=== PATIENT | female | born 1990 | race Two or more races ===

== ENCOUNTER 2020-07-25 13:00 | Outpatient (REF) | payer OTHER, SELFPAY ==
[2020-07-26 04:09] LABS: Syphilis Screen Nonreactive (Nonreactive)
[2020-07-26 04:21] LABS: HBc Num1 0.07 S/CO (0.00-0.79); HIV AB/AG Nonreactive (Nonreactive); HIV Num 1 0.26 S/CO (0.00-0.99); Hepatitis B Core Antibody Nonreactive (Nonreactive); ~HepC Num1 0.08 S/CO (0.00-0.79); ~Hepatitis C Antibody Nonreactive (Nonreactive)
[2020-07-26 09:09] LABS: BV Int Neg Control Negative (Negative); BV Int Pos Control Positive (Positive)
[2020-07-27 18:27] LABS: C. trachomatis RNA TMA NOT DETECTED (NOT DETECTED); N. gonorrhoeae RNA TMA NOT DETECTED (NOT DETECTED)
== END 2020-07-25 13:01 | disposition home or self-care (01) ==
LOC: HO.LAB 13:00
PROVIDERS: PCP Internal Medicine; Visit Provider Advanced Practice Midwife
DX: N76.0 Acute vaginitis (principal); Z20.2 Contact with and (suspected) exposure to infections with a predominantly sexual mode of transmission
CPT/HCPCS: 36415; 86704; 86780; 86803; 87389; 87480; 87491; 87510; 87591; 87660; 99212

== ENCOUNTER 2020-09-25 11:04 | Outpatient (REF) | payer OTHER, SELFPAY ==
[2020-09-25 12:48] LABS: Hematocrit 35.6 % (37-47); Hemoglobin 11.3 g/dl (12.0-16.0); Mean Corpuscular HGB Conc 31.7 g/dl (31.0-35.0); Mean Corpuscular Hemoglobin 28.2 pg (27.0-33.0); Mean Corpuscular Volume 88.8 fL (80-98); Mean Platelet Volume 10.8 fL (9.4-12.3); Platelet Count 167 X10*3/uL (160-400); Red Blood Count 4.01 X10*6/uL (4.20-5.50); Red Cell Distribution Width 12.8 % (11.0-16.0); White Blood Count 5.8 X10*3/uL (4.8-10.8)
[2020-09-25 13:27] LABS: HCG Quantitative < 2 mIU/mL; Thyroid Stimulating Hormone 1.33 uIU/mL (0.32-4.0)
[2020-09-26 13:32] LABS: C. trachomatis RNA TMA NOT DETECTED (NOT DETECTED); N. gonorrhoeae RNA TMA NOT DETECTED (NOT DETECTED)
== END 2020-09-25 11:05 | disposition home or self-care (01) ==
LOC: HO.LAB 11:04
PROVIDERS: PCP Internal Medicine; Visit Provider Obstetrics & Gynecology
DX: N92.0 Excessive and frequent menstruation with regular cycle (principal)
CPT/HCPCS: 36415; 84443; 84702; 85027; 87491; 87591; 99212

== ENCOUNTER 2020-10-05 10:53 | Outpatient (REF) | payer OTHER, SELFPAY ==
--- NOTE | ~2020-10-05 | US_ITS ---
EXAMINATION: US PELVIS COMPLETE CLINICAL INFORMATION: Excessive and frequent menses. COMPARISON: None TECHNIQUE: Transabdominal and transvaginal ultrasound of the pelvis is performed. FINDINGS: The uterus is anteverted and anteflexed measuring 10.1 cm in length, 4.4 cm in AP, and 5.9 cm in transverse dimension. The endometrial thickness is 1.0 cm. The uterus is unremarkable. There are several nabothian cysts seen in the cervix. The right ovary measures 3.0 x 2.3 x 1.9 cm and volume 6.9 mL. It appears unremarkable. The left ovary measures 2.8 x 2.2 x 1.5 cm and volume 4.8 mL. It appears unremarkable. There is no free fluid in cul-de-sac. US/US transvaginal IMPRESSION: Unremarkable uterus and ovaries. Small nabothian cysts in the cervix.
--- NOTE | ~2020-10-05 | US_ITS ---
EXAMINATION: US PELVIS COMPLETE CLINICAL INFORMATION: Excessive and frequent menses. COMPARISON: None TECHNIQUE: Transabdominal and transvaginal ultrasound of the pelvis is performed. FINDINGS: The uterus is anteverted and anteflexed measuring 10.1 cm in length, 4.4 cm in AP, and 5.9 cm in transverse dimension. The endometrial thickness is 1.0 cm. The uterus is unremarkable. There are several nabothian cysts seen in the cervix. The right ovary measures 3.0 x 2.3 x 1.9 cm and volume 6.9 mL. It appears unremarkable. The left ovary measures 2.8 x 2.2 x 1.5 cm and volume 4.8 mL. It appears unremarkable. There is no free fluid in cul-de-sac. US/US pelvic complete IMPRESSION: Unremarkable uterus and ovaries. Small nabothian cysts in the cervix.
== END 2020-10-05 10:54 | disposition home or self-care (01) ==
LOC: HO.US 10:53
PROVIDERS: PCP Internal Medicine; Visit Provider Obstetrics & Gynecology
DX: N92.0 Excessive and frequent menstruation with regular cycle (principal)
CPT/HCPCS: 76830; 76856

== ENCOUNTER → 2020-10-10 11:27 | Outpatient (BNVA) | payer OTHER, SELFPAY | PROVIDERS: PCP Internal Medicine; Visit Provider Obstetrics & Gynecology | DX: N92.1 Excessive and frequent menstruation with irregular cycle (principal) | CPT/HCPCS: Q3014 ==

== ENCOUNTER → 2020-10-24 09:54 | Outpatient (BNVA) | payer OTHER, SELFPAY | PROVIDERS: PCP Internal Medicine; Visit Provider Orthopaedic Surgery | DX: M67.439 Ganglion, unspecified wrist (principal) | CPT/HCPCS: 20612; 99202 ==

== ENCOUNTER 2021-02-07 14:46 | Outpatient (REF) | payer OTHER, SELFPAY ==
[2021-02-07 16:29] LABS: Syphilis Screen Nonreactive (Nonreactive)
[2021-02-08 02:38] LABS: CT PCR NOT DETECTED (Not Detect.); NG PCR NOT DETECTED (Not Detect.)
[2021-02-08 13:03] LABS: BV Int Neg Control Negative (Negative); BV Int Pos Control Positive (Positive)
[2021-02-09 08:27] LABS: HBsAGNum1 0.15 S/CO (0.00-0.99); HIV AB/AG Nonreactive (Nonreactive); Hepatitis B Surface Antigen Negative (Negative); ~HepC Num1 0.11 S/CO (0.00-0.79); ~Hepatitis C Antibody Nonreactive (Nonreactive)
== END 2021-02-07 14:47 | disposition home or self-care (01) ==
LOC: HO.LAB 14:46
PROVIDERS: PCP Internal Medicine; Visit Provider Obstetrics & Gynecology
DX: Z01.419 Encounter for gynecological examination (general) (routine) without abnormal findings (principal); Z01.84 Encounter for antibody response examination; Z11.3 Encounter for screening for infections with a predominantly sexual mode of transmission; Z11.4 Encounter for screening for human immunodeficiency virus [HIV]; Z11.59 Encounter for screening for other viral diseases
CPT/HCPCS: 36415; 86780; 86803; 87340; 87389; 87480; 87491; 87510; 87591; 87660; 88142

== ENCOUNTER 2021-03-20 11:06 | Outpatient (REF) | payer OTHER, SELFPAY ==
[2021-03-21 08:09] LABS: Syphilis Screen Nonreactive (Nonreactive)
[2021-03-21 08:30] LABS: HBsAGNum1 0.17 S/CO (0.00-0.99); HIV AB/AG Nonreactive (Nonreactive); HIV Num 1 0.08 S/CO (0.00-0.99); Hepatitis B Core Antibody Nonreactive (Nonreactive); Hepatitis B Surface Antigen Negative (Negative); ~HepC Num1 0.11 S/CO (0.00-0.79); ~Hepatitis C Antibody Nonreactive (Nonreactive)
[2021-03-21 08:42] LABS: HBS Num1 1.69 mIU/mL (0-7.99); ~Hepatitis B Surface Antibody NONREACTIVE (Nonreactive)
== END 2021-03-20 11:07 | disposition home or self-care (01) ==
LOC: HO.LAB 11:06
PROVIDERS: PCP Internal Medicine; Visit Provider Internal Medicine
DX: Z01.84 Encounter for antibody response examination (principal); Z11.3 Encounter for screening for infections with a predominantly sexual mode of transmission; Z11.4 Encounter for screening for human immunodeficiency virus [HIV]; R94.5 Abnormal results of liver function studies
CPT/HCPCS: 36415; 86704; 86706; 86780; 86803; 87340; 87389

== ENCOUNTER 2021-05-07 13:46 | Outpatient (REF) | payer OTHER, SELFPAY ==
[2021-05-07 15:05] LABS: Hematocrit 37.7 % (37-47); Hemoglobin 11.8 g/dl (12.0-16.0); Mean Corpuscular HGB Conc 31.3 g/dl (31.0-35.0); Mean Corpuscular Hemoglobin 27.3 pg (27.0-33.0); Mean Corpuscular Volume 87.3 fL (80-98); Mean Platelet Volume 10.5 fL (9.4-12.3); Platelet Count 163 X10*3/uL (160-400); Red Blood Count 4.32 X10*6/uL (4.20-5.50); Red Cell Distribution Width 13.4 % (11.0-16.0); White Blood Count 5.5 X10*3/uL (4.8-10.8)
[2021-05-07 16:05] LABS: HCG Quantitative < 2 mIU/mL
[2021-05-07 16:31] LABS: Syphilis Screen Nonreactive (Nonreactive)
[2021-05-08 03:26] LABS: CT PCR NOT DETECTED (Not Detect.); NG PCR NOT DETECTED (Not Detect.)
[2021-05-08 04:29] LABS: HBsAGNum1 0.15 S/CO (0.00-0.99); HIV AB/AG Nonreactive (Nonreactive); Hepatitis B Surface Antigen Negative (Negative); ~HepC Num1 0.07 S/CO (0.00-0.79); ~Hepatitis C Antibody Nonreactive (Nonreactive)
[2021-05-08 11:38] LABS: BV Int Neg Control Negative (Negative); BV Int Pos Control Positive (Positive)
== END 2021-05-07 13:47 | disposition home or self-care (01) ==
LOC: HO.LAB 13:46
PROVIDERS: PCP Internal Medicine; Visit Provider Obstetrics & Gynecology
DX: Z11.3 Encounter for screening for infections with a predominantly sexual mode of transmission (principal); Z11.4 Encounter for screening for human immunodeficiency virus [HIV]; N93.9 Abnormal uterine and vaginal bleeding, unspecified; Z20.2 Contact with and (suspected) exposure to infections with a predominantly sexual mode of transmission
CPT/HCPCS: 36415; 84443; 84702; 85027; 86780; 86803; 87340; 87389; 87480; 87491; 87510; 87591; 87660; 99212

== ENCOUNTER 2021-05-24 11:29 | Outpatient (REF) | payer OTHER, SELFPAY ==
--- NOTE | ~2021-05-24 | US_ITS ---
EXAMINATION: ULTRASOUND OF THE PELVIS CLINICAL INFORMATION: Abnormal uterine and vaginal bleeding. COMPARISON: 10/05/2020. TECHNIQUE: Transabdominal and transvaginal pelvic ultrasound. A transvaginal study was performed in addition to the transabdominal study which did not yield an adequate examination of the uterus and ovaries due to superimposed distended gas-filled loops of bowel. FINDINGS: The uterus is normal in size and appearance, measuring 8.5 x 5 x 6.3 cm longitudinally, anteroposteriorly and transversely. The endometrial stripe thickness is normal, measuring 1 cm in thickness. Fluid noted in the endometrial canal. No focal myometrial mass is seen. The ovaries bilaterally are visualized and appear normal, with the right ovary measuring 3 x 1.5 x 1.4 cm and the left ovary measuring 3.5 x 2 x 3.3 cm. Corpus luteum noted on the left. No adnexal mass or free fluid collection seen. US/US pelvic and transvaginal IMPRESSION: Fluid noted in the endometrial canal. No pelvic mass..
== END 2021-05-24 11:30 | disposition home or self-care (01) ==
LOC: HO.US 11:29
PROVIDERS: PCP Internal Medicine; Visit Provider Obstetrics & Gynecology
DX: N93.9 Abnormal uterine and vaginal bleeding, unspecified (principal)
CPT/HCPCS: 76830; 76856

== ENCOUNTER → 2021-06-07 10:48 | Outpatient (BNVA) | payer OTHER, SELFPAY | PROVIDERS: PCP Internal Medicine; Visit Provider Obstetrics & Gynecology | DX: N93.9 Abnormal uterine and vaginal bleeding, unspecified (principal) | CPT/HCPCS: 99212 ==

== ENCOUNTER → 2021-08-21 09:26 | Outpatient (BNVA) | payer OTHER, SELFPAY | PROVIDERS: PCP Internal Medicine; Visit Provider Orthopaedic Surgery | DX: M67.431 Ganglion, right wrist (principal) | CPT/HCPCS: 99212 ==

== ENCOUNTER 2021-12-19 11:31 | Outpatient (REF) | payer OTHER, SELFPAY ==
[2021-12-20 08:12] LABS: HBS Num1 1.52 mIU/mL (0-7.99); HBc Num1 0.06 S/CO (0.00-0.79); HBsAGNum1 0.15 S/CO (0.00-0.99); HIV AB/AG Nonreactive (Nonreactive); HIV Num 1 0.11 S/CO (0.00-0.99); Hepatitis B Core Antibody Nonreactive (Nonreactive); Hepatitis B Surface Antigen Negative (Negative); ~HepC Num1 0.09 S/CO (0.00-0.79); ~Hepatitis B Surface Antibody NONREACTIVE (Nonreactive); ~Hepatitis C Antibody Nonreactive (Nonreactive)
== END 2021-12-19 11:32 | disposition home or self-care (01) ==
LOC: HO.LAB 11:31
PROVIDERS: PCP Internal Medicine; Visit Provider Internal Medicine
DX: Z11.4 Encounter for screening for human immunodeficiency virus [HIV] (principal); Z11.3 Encounter for screening for infections with a predominantly sexual mode of transmission; R79.89 Other specified abnormal findings of blood chemistry
CPT/HCPCS: 36415; 86704; 86706; 86803; 87340; 87389

== ENCOUNTER 2022-02-12 10:56 | Outpatient (REF) | payer OTHER, SELFPAY ==
[2022-02-12 18:33] LABS: CT PCR NOT DETECTED (Not Detect.); NG PCR NOT DETECTED (Not Detect.)
[2022-02-13 13:04] LABS: BV Int Neg Control Negative (Negative); BV Int Pos Control Positive (Positive)
== END 2022-02-12 10:57 | disposition home or self-care (01) ==
LOC: HO.LAB 10:56
PROVIDERS: Visit Provider Obstetrics & Gynecology
DX: Z11.3 Encounter for screening for infections with a predominantly sexual mode of transmission (principal)
CPT/HCPCS: 87480; 87491; 87510; 87591; 87660

== ENCOUNTER 2022-03-20 09:42 | Outpatient (REF) | payer OTHER, SELFPAY ==
--- NOTE | ~2022-03-20 | US_ITS ---
EXAMINATION: US ABDOMEN COMPLETE CLINICAL INFORMATION: Other specified abnormal findings of blood chemistry. COMPARISON: Ultrasound renals only dated 01/13/2020. CT abdomen and pelvis with contrast dated 08/03/2018. KUB dated 12/06/2016 and 10/20/2013. Ultrasound abdomen complete dated 03/20/2012. TECHNIQUE: Real-time imaging of the abdominal viscera. FINDINGS: PANCREAS: Normal. ABDOMINAL AORTA: The proximal, mid, and distal segments are normal in caliber. INFERIOR VENA CAVA: Visualized portions are normal. LIVER: Normal. The liver is normal in size. The liver contour is normal. Parenchymal echogenicity is normal. No focal hepatic lesion. There is no intrahepatic biliary duct dilatation seen. GALLBLADDER: The gallbladder is physiologically distended. Multiple mobile gallstones are present. No evidence of gallbladder wall thickening or pericholecystic fluid. COMMON BILE DUCT: Normal in caliber measuring 0.26 cm in diameter. RIGHT KIDNEY: Normal. No hydronephrosis. No renal calculi or focal parenchymal lesions. The kidney measures 8.9 cm in maximum dimension. LEFT KIDNEY: There is a lower pole calculus measuring 0.3 cm. No hydronephrosis or focal parenchymal lesions. The kidney measures 9.8 cm in maximum dimension. SPLEEN: Normal. The spleen measures 9.0 cm in maximum dimension. FREE FLUID: None. US/US abdomen complete IMPRESSION: Cholelithiasis without inflammatory changes of the gallbladder. Nonobstructing left lower pole renal calculus. This measures 0.3 cm.
== END 2022-03-20 09:43 | disposition home or self-care (01) ==
LOC: HO.HMGCX 09:42
PROVIDERS: PCP Internal Medicine; Visit Provider Internal Medicine
DX: R10.11 Right upper quadrant pain (principal); R79.89 Other specified abnormal findings of blood chemistry
CPT/HCPCS: 76700

== ENCOUNTER 2022-04-19 09:09 | Outpatient (REF) | payer OTHER, SELFPAY ==
[2022-04-19 09:22] LABS: MANUAL DIFF FLAG NO
[2022-04-19 09:52] LABS: Basophils Percent Auto 0.3 % (0-2); Eosinophils Percent Auto 0.5 % (0-4); Hematocrit 36.9 % (37.0-47.0); Hemoglobin 11.8 g/dl (12.0-16.0); Imm Gran Abs Auto 0.02 X10*3/uL (0.00-0.03); Imm Gran Pct Auto 0.3 % (0.0-0.4); Immature Retic Fraction 9.3 % (3.0-15.9); Lymphocytes Absolute Auto 1.7 X10*3/uL (1.2-4.9); Mean Corpuscular Hemoglobin 28.4 pg (27.0-33.0); Mean Corpuscular Volume 88.9 fL (80.0-98.0); Mean Platelet Volume 10.7 fL (9.4-12.3); Monocytes Absolute Auto 0.5 X10*3/uL (0.1-1.2); Neutrophils Absolute Auto 3.7 x10*3/uL (2.0-8.3); Neutrophils Percent Auto 61.9 % (45-73); Platelet Count 168 X10*3/uL (160-400); Red Blood Count 4.15 X10*6/uL (4.20-5.50); Retic HGB Equivalent 31.5 pg (30.0-35.0); Reticulocyte Percent 1.1 % (0.5-1.8); Reticulocytes Absolute 0.046 X10*6/uL (0.026-0.095); White Blood Count 5.9 X10*3/uL (4.8-10.8)
[2022-04-19 10:50] LABS: HBsAGNum1 0.17 S/CO (0.00-0.99); HIV AB/AG Nonreactive (Nonreactive); HIV Num 1 0.05 S/CO (0.00-0.99); Hepatitis B Surface Antigen Negative (Negative); ~HepC Num1 0.11 S/CO (0.00-0.79); ~Hepatitis C Antibody Nonreactive (Nonreactive)
[2022-04-19 10:55] LABS: Alanine Aminotransferase 36 U/L (0-31); Albumin Level 4.3 g/dL (3.5-5.0); Alkaline Phosphatase 71 U/L (39-117); Anion Gap 12 (12-20); Aspartate Amino Transferase 27 U/L (5-31); Bilirubin Total < 0.2 mg/dL (0.0-1.0); Blood Urea Nitrogen 8 mg/dL (9-16); Calcium 9.1 mg/dL (8.4-10.2); Carbon Dioxide 24 mmol/L (22-29); Chloride 108 mmol/L (96-108); Cholesterol 148 mg/dL; Estimated Glomerular Filt Rate > 60; Glucose Random 81 mg/dL (60-115); HDL Cholesterol 55 mg/dL; Iron 34 mcg/dL (30-160); LDL Cholesterol Calculated 84 mg/dl; Percent Iron Saturation 11 % (15-50); Potassium 4.4 mmol/L (3.3-5.1); Sodium 140 mmol/L (135-145); Total Iron Binding Capacity 296 mcg/dL (228-428); Total Protein 6.9 g/dL (6.5-8.0); Triglycerides 45 mg/dL; Unsaturated Iron Binding 262 ug/dL
[2022-04-19 11:08] LABS: Folate 17.9 ng/mL (> or = 4.0); Vitamin B12 637 pg/mL (200-900)
[2022-04-19 11:13] LABS: Ferritin 69 ng/mL (10-122); Free T4 (Free Thyroxine) 0.84 ng/dL (0.71-1.85); Syphilis Screen Nonreactive (Nonreactive); Thyroid Stimulating Hormone 1.72 uIU/mL (0.32-4.0)
== END 2022-04-19 09:10 | disposition home or self-care (01) ==
LOC: HO.LAB 09:09
PROVIDERS: Obstetrics & Gynecology; PCP Internal Medicine; Visit Provider Internal Medicine
DX: Z11.4 Encounter for screening for human immunodeficiency virus [HIV] (principal); Z20.2 Contact with and (suspected) exposure to infections with a predominantly sexual mode of transmission; E78.00 Pure hypercholesterolemia, unspecified; K21.9 Gastro-esophageal reflux disease without esophagitis
CPT/HCPCS: 36415; 80053; 80061; 82607; 82728; 82746; 83540; 84439; 84443; 85025; 85045; 86780; 86803; 87340; 87389

== ENCOUNTER → 2022-05-10 14:34 | Outpatient (BNVA) | payer OTHER, SELFPAY | PROVIDERS: PCP Internal Medicine; Visit Provider Surgery | DX: R10.13 Epigastric pain (principal); K80.20 Calculus of gallbladder without cholecystitis without obstruction; Z86.19 Personal history of other infectious and parasitic diseases | CPT/HCPCS: 99202 ==

== ENCOUNTER → 2022-05-13 09:16 | Outpatient (BNVA) | payer OTHER, SELFPAY | PROVIDERS: PCP Internal Medicine; Visit Provider Surgery | DX: Z11.0 Encounter for screening for intestinal infectious diseases (principal) | CPT/HCPCS: 99211 ==

== ENCOUNTER 2022-05-13 16:20 | Outpatient (REF) | payer OTHER, SELFPAY ==
[2022-05-14 14:01] LABS: H Pylori Breath Test Negative (Negative)
== END 2022-05-13 16:21 | disposition home or self-care (01) ==
LOC: HO.LNP 16:20
PROVIDERS: Visit Provider Surgery
DX: R10.13 Epigastric pain (principal); K80.20 Calculus of gallbladder without cholecystitis without obstruction
CPT/HCPCS: 83013

== ENCOUNTER → 2022-06-17 13:47 | Outpatient (BNVA) | payer OTHER, SELFPAY | PROVIDERS: PCP Internal Medicine; Referring Provider Internal Medicine; Visit Provider Nurse Practitioner Family | DX: R10.13 Epigastric pain (principal); K80.20 Calculus of gallbladder without cholecystitis without obstruction; K21.9 Gastro-esophageal reflux disease without esophagitis | CPT/HCPCS: 99202 ==

== ENCOUNTER 2022-06-19 09:00 | Outpatient (REF) | payer OTHER, SELFPAY ==
[2022-06-19 09:23] LABS: MANUAL DIFF FLAG NO
[2022-06-19 09:42] LABS: Basophils Percent Auto 0.4 % (0-2); Eosinophils Percent Auto 0.8 % (0-4); Hematocrit 40.4 % (37.0-47.0); Hemoglobin 12.8 g/dl (12.0-16.0); Imm Gran Abs Auto 0.02 X10*3/uL (0.00-0.03); Imm Gran Pct Auto 0.4 % (0.0-0.4); Lymphocytes Absolute Auto 1.9 X10*3/uL (1.2-4.9); Lymphocytes Percent Auto 39.5 % (20-40); Mean Corpuscular HGB Conc 31.7 g/dl (31.0-35.0); Mean Corpuscular Hemoglobin 27.5 pg (27.0-33.0); Mean Corpuscular Volume 86.7 fL (80.0-98.0); Mean Platelet Volume 10.1 fL (9.4-12.3); Monocytes Absolute Auto 0.4 X10*3/uL (0.1-1.2); Monocytes Percent Auto 7.6 % (2-11); Neutrophils Absolute Auto 2.4 x10*3/uL (2.0-8.3); Neutrophils Percent Auto 51.3 % (45-73); Platelet Count 194 X10*3/uL (160-400); Red Blood Count 4.66 X10*6/uL (4.20-5.50); Red Cell Distribution Width 12.4 % (11.0-16.0); Retic HGB Equivalent 33.2 pg (30.0-35.0); Reticulocyte Percent 0.7 % (0.5-1.8); White Blood Count 4.7 X10*3/uL (4.8-10.8)
[2022-06-19 10:34] LABS: Gamma Glutamyl Transpeptidase 54 U/L (7-33)
[2022-06-19 10:35] LABS: Syphilis Screen Nonreactive (Nonreactive)
[2022-06-19 10:37] LABS: Alanine Aminotransferase 13 U/L (0-31); Albumin Level 4.7 g/dL (3.5-5.0); Alkaline Phosphatase 68 U/L (39-117); Anion Gap 11 (12-20); Aspartate Amino Transferase 15 U/L (5-31); Bilirubin Total 0.5 mg/dL (0.0-1.0); Blood Urea Nitrogen 14 mg/dL (9-16); Calcium 9.7 mg/dL (8.4-10.2); Carbon Dioxide 28 mmol/L (22-29); Chloride 102 mmol/L (96-108); Cholesterol 176 mg/dL; Estimated Glomerular Filt Rate > 60; Glucose Random 76 mg/dL (60-115); HDL Cholesterol 55 mg/dL; Iron 83 mcg/dL (30-160); LDL Cholesterol Calculated 105 mg/dl; Lipase 23 U/L (8-78); Percent Iron Saturation 30 % (15-50); Potassium 4.2 mmol/L (3.3-5.1); Sodium 137 mmol/L (135-145); Thyroid Stimulating Hormone 1.68 uIU/mL (0.32-4.0); Total Iron Binding Capacity 278 mcg/dL (228-428); Total Protein 7.5 g/dL (6.5-8.0); Triglycerides 81 mg/dL; Unsaturated Iron Binding 195 ug/dL
[2022-06-19 10:39] LABS: Ferritin 112 ng/mL (10-122); Free T4 (Free Thyroxine) 0.95 ng/dL (0.71-1.85); Vitamin D 25-OH Total 39.6 ng/mL (>30)
[2022-06-19 10:44] LABS: HBS Num1 1.43 mIU/mL (0-7.99); HBc Num1 0.07 S/CO (0.00-0.79); HBsAGNum1 0.26 S/CO (0.00-0.99); HIV AB/AG Nonreactive (Nonreactive); HIV Num 1 0.06 S/CO (0.00-0.99); Hepatitis B Core Antibody Nonreactive (Nonreactive); Hepatitis B Surface Antigen Negative (Negative); ~Hepatitis B Surface Antibody NONREACTIVE (Nonreactive); ~Hepatitis C Antibody Nonreactive (Nonreactive)
[2022-06-19 11:09] LABS: Folate > 20.0 ng/mL (> or = 4.0); Vitamin B12 1621 pg/mL (200-900)
[2022-06-21 12:48] LABS: Transglutaminase Ab IgG <1.0 U/mL; Transglutaminase IgA <1.0 U/mL
== END 2022-06-19 09:01 | disposition home or self-care (01) ==
LOC: HO.LAB 09:00
PROVIDERS: Absent Provider Nurse Practitioner Family; PCP Internal Medicine; Visit Provider Internal Medicine
DX: Z11.4 Encounter for screening for human immunodeficiency virus [HIV] (principal); Z11.3 Encounter for screening for infections with a predominantly sexual mode of transmission; R10.9 Unspecified abdominal pain; R74.8 Abnormal levels of other serum enzymes; E78.00 Pure hypercholesterolemia, unspecified; D64.9 Anemia, unspecified; K80.20 Calculus of gallbladder without cholecystitis without obstruction; R79.89 Other specified abnormal findings of blood chemistry; E55.9 Vitamin D deficiency, unspecified; E46 Unspecified protein-calorie malnutrition
CPT/HCPCS: 36415; 80053; 80061; 82306; 82607; 82728; 82746; 82977; 83540; 83690; 84439; 84443; 85025; 85045; 86364; 86704; 86706; 86780; 86803; 87340; 87389

== ENCOUNTER 2022-06-21 11:02 | Outpatient (REF) | payer OTHER, SELFPAY ==
[2022-06-28 20:28] LABS: Pancreatic Elastase-1 277 mcg/g
== END 2022-06-21 11:03 | disposition home or self-care (01) ==
LOC: HO.LNP 11:02
PROVIDERS: Visit Provider Nurse Practitioner Family
DX: R10.9 Unspecified abdominal pain (principal)
CPT/HCPCS: 82656

== ENCOUNTER → 2022-07-05 07:46 | Outpatient (REF) | payer OTHER, SELFPAY ==
--- NOTE | ~2022-07-05 | NM_ITS ---
EXAMINATION: BILIARY TRACT IMAGING STUDY WITH CCK CLINICAL INFORMATION: GE reflux, calculus of gallbladder without cholecystitis. Epigastric pain.. COMPARISON: No previous biliary scan is available for comparison. Abdominal ultrasound dated 03/20/2022 is available for comparison.. TECHNIQUE: Serial gamma scintillation camera images were obtained over the abdomen for a total observation period of 93 minutes following the intravenous administration of 5.0 mCi Tc-99m Mebrofenin. FINDINGS: There is good concentration of activity in the liver by 5 minutes post injection. Biliary activity is visualized by 8 minutes. The gallbladder is well visualized by 15 minutes. Small bowel is well visualized by 20 minutes. At 60 minutes post radiopharmaceutical injection, a 30-minute infusion of 1.1 micrograms Sincalide was then begun and an additional 40 minutes of images were obtained. There is good emptying of the gallbladder. By the end of the study there is good clearance of activity from the liver and visualization of diffuse small bowel activity. The calculated gallbladder ejection fraction is 81% (normal gallbladder ejection fraction is greater than 35%). NM/NM hepatobiliary w pharm IMPRESSION: Visualization of the gallbladder is evidence of a patent cystic duct and strong evidence against the diagnosis of acute cholecystitis. The common bile duct is patent. Gallbladder emptying and ejection fraction are normal. Liver function appears normal.
== END ==
LOC: HO.NUCMED 07:46
PROVIDERS: PCP Internal Medicine; Visit Provider Nurse Practitioner Family
DX: K21.9 Gastro-esophageal reflux disease without esophagitis (principal)
CPT/HCPCS: 78227; A9537; J2805

== ENCOUNTER → 2022-07-29 09:39 | Outpatient (BNVA) | payer OTHER, SELFPAY | PROVIDERS: PCP Internal Medicine; Visit Provider Nurse Practitioner Family | DX: K80.20 Calculus of gallbladder without cholecystitis without obstruction (principal); K21.9 Gastro-esophageal reflux disease without esophagitis; R10.13 Epigastric pain | CPT/HCPCS: 99212 ==

== ENCOUNTER 2022-08-07 08:49 | Outpatient (REF) | payer OTHER, SELFPAY | END 2022-08-07 08:50 | disposition home or self-care (01) | LOC: HO.LNP 08:49 | PROVIDERS: PCP Internal Medicine; Visit Provider Advanced Practice Midwife | DX: Z20.2 Contact with and (suspected) exposure to infections with a predominantly sexual mode of transmission (principal) | CPT/HCPCS: 99212 ==

== ENCOUNTER 2022-08-07 09:36 | Outpatient (REF) | payer OTHER, SELFPAY ==
[2022-08-07 17:19] LABS: CT PCR NOT DETECTED (Not Detect.); NG PCR NOT DETECTED (Not Detect.)
[2022-08-08 13:46] LABS: BV Int Neg Control Negative (Negative); BV Int Pos Control Positive (Positive)
== END 2022-08-07 09:37 | disposition home or self-care (01) ==
LOC: HO.LAB 09:36
PROVIDERS: Visit Provider Advanced Practice Midwife
DX: Z20.2 Contact with and (suspected) exposure to infections with a predominantly sexual mode of transmission (principal)
CPT/HCPCS: 0353U; 87480; 87510; 87660

== ENCOUNTER → 2022-10-28 09:47 | Outpatient (BNVA) | payer OTHER, SELFPAY | PROVIDERS: PCP Internal Medicine; Visit Provider Nurse Practitioner Family | DX: K21.9 Gastro-esophageal reflux disease without esophagitis (principal); K80.20 Calculus of gallbladder without cholecystitis without obstruction | CPT/HCPCS: 99212 ==

== ENCOUNTER 2022-11-06 09:43 | Day surgery (SDC) | payer OTHER, SELFPAY ==
--- NOTE | 2022-11-05 14:22 | P.CONAN_ITS ---
Documented by User: Eileen Murphy NP 11/05/22 14:23 HPI - Anesthesia Eval Consult details Narrative: 32yo F for Upper Endoscopy PMFSH Active Problems Active Problems: All Active Problems (Updated 10/28/22 @ 13:17 by Jannet Drake, [facility]) History of Helicobacter pylori infection (Acute) Menorrhagia (Acute) Anemia (Acute) Left renal stone (Acute) Cholelithiases (Acute) Generalized anxiety disorder (Acute) Annual physical exam (Acute) Screening for STD (sexually transmitted disease) (Acute) Allergic rhinitis (Acute) Dorsal wrist ganglion (Acute) Ganglion cyst of tendon sheath of right hand (Acute) Menorrhagia (Acute) Potential exposure to STD (Acute) Low back pain (Acute) Vitamin B12 deficiency (Acute) GERD (gastroesophageal reflux disease) (Acute) Past Medical History Medical History Abnormal uterine bleeding (AUB) Acute vaginitis Asthma Cholelithiasis ZULEMA II (cervical intraepithelial neoplasia II) Dysfunctional uterine bleeding Dysplasia of cervix, low grade (ZULEMA 1) Epigastric abdominal pain GERD (gastroesophageal reflux disease) Iron deficiency anemia Left renal stone RUQ abdominal pain Toe fracture, left Ulnar neuropathy Vitamin B12 deficiency Vitamin D deficiency Well woman exam Family History Family History Father CVD (cardiovascular disease) Myocardial infarction Mother Hodgkin lymphoma Colon cancer Lung cancer Brother Leukemia Colon cancer Maternal Grandmother Diabetes Surgical History Surgical History H/O LEEP History of esophagogastroduodenoscopy (EGD) History of tonsillectomy History of tubal ligation History of wisdom tooth extraction Social History Social History Housing: Apartment Alcohol intake: current Alcohol intake frequency: holidays/special occasions only Patient Tobacco Use Status: Never used Tobacco e-Cigarette/Vaping Use: Never Used Second Hand Smoke Exposure: No service: No Current occupational status: disabled Gender identity: Female Cognitive needs: No Hearing needs: No Vision needs: Yes Meds Allergies Allergy/AdvReac Type Severity Reaction Status Date / Time pomegranate [POMEGRANATE] Allergy Mild RASH Verified 11/18/22 09:28 Seasonal Allergies Allergy Unknown Verified 11/18/22 09:28 Home Medications Medication Instructions Recorded Confirmed Last Taken Type multivitamin 1 tab PO DAILY 07/06/20 05/10/22 Unknown History omega-3 fatty acids 1,000 mg 1,000 mg PO DAILY 07/06/20 05/10/22 Unknown History capsule (Fish Oil Concentrate) biotin 1 mg capsule 1 mg PO DAILY 10/03/20 05/10/22 Unknown History tranexamic acid 650 mg tablet 1,300 mg PO TID 07/29/22 Unknown History (Lysteda) Exam Exam Date and Time: November 05, 2022 1422 Pertinent Lab Results Pertinent Lab Results: Laboratory Tests 06/19/22 06/19/22 09:21 09:21 WBC 4.7 L Hgb 12.8 Hct 40.4 Plt Count 194 Sodium 137 Potassium 4.2 Chloride 102 Carbon Dioxide 28 BUN 14 Creatinine 0.82 Assessment and Plan Assessment Anesthesia Assessment: Chart Reviewed Documented by User: Giovani Sánchez MD 11/21/22 16:58 HPI - Anesthesia Eval Consult details Narrative: 32yo F for Upper Endoscopy h/o back pain with radtion to b/l LE PMFSH Past Medical History Medical History Abnormal uterine bleeding (AUB) Acute vaginitis Asthma Cholelithiasis ZULEMA II (cervical intraepithelial neoplasia II) Dysfunctional uterine bleeding Dysplasia of cervix, low grade (ZULEMA 1) Epigastric abdominal pain GERD (gastroesophageal reflux disease) Iron deficiency anemia Left renal stone RUQ abdominal pain Toe fracture, left Ulnar neuropathy Vitamin B12 deficiency Vitamin D deficiency Well woman exam Functional capacity: independent ambulation Family History Family History Father CVD (cardiovascular disease) Myocardial infarction Mother Hodgkin lymphoma Colon cancer Lung cancer Brother Leukemia Colon cancer Maternal Grandmother Diabetes Family history of problems with anesthesia: No Surgical History Surgical History H/O LEEP History of esophagogastroduodenoscopy (EGD) History of tonsillectomy History of tubal ligation History of wisdom tooth extraction History of Problems with Anesthesia: No Social History Social History Housing: Apartment Alcohol intake: current Alcohol intake frequency: holidays/special occasions only Patient Tobacco Use Status: Never used Tobacco e-Cigarette/Vaping Use: Never Used Second Hand Smoke Exposure: No service: No Current occupational status: disabled Gender identity: Female Cognitive needs: No Hearing needs: No Vision needs: Yes Meds Allergies Allergy/AdvReac Type Severity Reaction Status Date / Time pomegranate [POMEGRANATE] Allergy Mild RASH Verified 11/18/22 09:28 Seasonal Allergies Allergy Unknown Verified 11/18/22 09:28 Home Medications Medication Instructions Recorded Confirmed Last Taken Type multivitamin 1 tab PO DAILY 07/06/20 05/10/22 Unknown History omega-3 fatty acids 1,000 mg 1,000 mg PO DAILY 07/06/20 05/10/22 Unknown History capsule (Fish Oil Concentrate) biotin 1 mg capsule 1 mg PO DAILY 10/03/20 05/10/22 Unknown History tranexamic acid 650 mg tablet 1,300 mg PO TID 07/29/22 Unknown History (Lysteda) Exam Airway Mallampati Class: III Neck ROM: Full Loose/Missing/Broken Teeth: Yes (fillings ) Assessment and Plan Assessment Anesthesia Assessment: Anesthesia Plan Discussed Final Anesthetic Review Family History of Problems with Anesthesia: No History of Problems with Anesthesia: No NPO: Yes ASA Class: II Final Preanesthetic Review: Meds/Allgs Chart Reviewed, Consent Obtained/Reviewed and Anes Risks/Benef Reviewed Patient Risk: Intermediate Procedure Risk: Intermediate Anesthetic Plan Anesthetic Plan: MAC: and Agree w/ Assess. and Plan Disposition: Standard PACU
[2022-11-06 09:51] VITALS: BMI 19.5
[2022-11-06 10:13] VITALS: BP 106/59; PULSE 83; RESP 16; TEMP 37.1; O2SAT 99
[2022-11-06] MEDS: Lactated Ringers 1,000 ML 100 ML IVCONT (10:22)
--- NOTE | 2022-11-06 10:35 | MHC.SHP ---
Pre-Procedural Eval Section A Date of Service: 11/06/22 Section B Chief Complaint: epigastric pain Relevant Family History (Specify if Yes): No Relevant Social History: None Present Medications: see Short Stay Collaborative assessment Medical History: Significant History (Abnormal uterine bleeding (AUB) Acute vaginitis Asthma Cholelithiasis ZULEMA II (cervical intraepithelial neoplasia II) Dysfunctional uterine bleeding Dysplasia of cervix, low grade (ZULEMA 1) Epigastric abdominal pain GERD (gastroesophageal reflux disease) Iron deficiency anemia Left renal stone RUQ abdo) History of Previous Operations: Relevant previous surgery/procedure and date(s) (H/O LEEP History of tonsillectomy History of tubal ligation History of wisdom tooth extraction) Allergies: Allergies Allergy/AdvReac Type Severity Reaction Status Date / Time pomegranate [POMEGRANATE] Allergy Mild RASH Verified 10/28/22 09:53 Seasonal Allergies Allergy Unknown Verified 11/05/22 13:36 Review of Systems Sugical H&P ROS: Negative: Constitution, Cardiovascular, Respiratory, Neurological, Psychiatric, Hem-Onc, Allergic/Immunologic, Gastrointestinal, Genitourinary, Musculoskeletal, Integumentary, Endocrine and Eyes/Ears/Nose/Throat Exam Surgical H&P Exam: Normal: HEENT, Normal: Heart, Normal: Lungs, Normal: Extremities, Normal: Abdomen, Normal: Skin and Normal: Neurological Plan Diagnosis/Plan: Unchanged I have reviewed the history and physical and performed a pertinent physical examination on my patient. No changes have occurred unless specified. Time Spent With Patient Time: Total time managing care of this patient today ____ minutes.
--- NOTE | 2022-11-06 10:36 | W.PM.OPN ---
Operative Note Operative Note Date of Service: 11/06/22 Narrative: Procedure Description: EGD Indication: epigastric pain Anesthesia: MAC FLEXIBLE TRANSORAL UPPER GASTROINTESTINAL ENDOSCOPY UPPER ENDOSCOPY Consent: Indications for the procedure and potential complications of bleeding, perforation, reaction to medications and missed diagnosis were discussed with the patient and informed consent was obtained. Instrument: Olympus GIF H 190 J mid size upper endoscope Monitoring: Vital signs and clinical assessment, continuous EKG monitoring, Pulse oximetry, Carbon Dioxide monitoring and blood pressure monitoring were done throughout the procedure. Procedure: The patient was placed in the left lateral decubitis position and pre-procedure medications were administered and a bite block was placed. The endoscope was inserted into the mouth and advanced under direct vision to the third part of duodenum. A careful inspection was made as the upper endoscope was withdrawn including a retroflexed examination of the proximal stomach; Findings and interventions are described below. Findings: Larynx:normal Esophagus: GE junction at 41 cm, diaphragm hiatus at 41 cm, mild esophagitis bx taken from GEJ and distal esophagus Stomach: Patchy gastric erythema. Few fundic gland polyps noted measuring 10-12 mm, these were removed with cold snare for analysis Biopsies were obtained. Grade 2 flap valve on retroflexed examination of the cardia. There appeared to be normal gastric movement Duodenum: Normal bulb and descending duodenum, bx taken Intervention: Biopsies as noted above, cold snare polypectomy Impression/Findings: fundic gland polyps mild esophagitis PLAN: await bx if neg biopsies, sx maybe coming from symptomatic cholelithiasis and may benefit from GB removal
[2022-11-06 11:15] VITALS: PULSE 77; RESP 20; TEMP 36.5; O2SAT 97
[2022-11-06 11:30] VITALS: PULSE 80; RESP 16; TEMP 36.5; O2SAT 99
[2022-11-06 11:45] VITALS: BP 104/63; PULSE 80; RESP 16; TEMP 36.5; O2SAT 99
== END 2022-11-06 12:39 | disposition home or self-care (01) ==
PROVIDERS: PCP Internal Medicine; Visit Provider Internal Medicine Gastroenterology
PROC: 0DJ08ZZ Inspection of Upper Intestinal Tract, Via Natural or Artificial Opening Endoscopic (ICD-10-PCS; CPT 43235; principal; 2022-11-06 11:10)
DX: J45.909 Unspecified asthma, uncomplicated (principal); K21.9 Gastro-esophageal reflux disease without esophagitis; R10.13 Epigastric pain; K31.7 Polyp of stomach and duodenum; K20.80 Other esophagitis without bleeding; K44.9 Diaphragmatic hernia without obstruction or gangrene; K80.20 Calculus of gallbladder without cholecystitis without obstruction; E55.9 Vitamin D deficiency, unspecified; Z87.442 Personal history of urinary calculi; Z79.899 Other long term (current) drug therapy
CPT/HCPCS: 43251; 43239; 88305; 88342; J3010

== ENCOUNTER → 2022-11-18 09:08 | Outpatient (BNVA) | payer OTHER, SELFPAY | PROVIDERS: PCP Internal Medicine; Visit Provider Nurse Practitioner Family | DX: K80.20 Calculus of gallbladder without cholecystitis without obstruction (principal); K21.9 Gastro-esophageal reflux disease without esophagitis | CPT/HCPCS: 99212 ==

== ENCOUNTER 2023-02-17 10:03 | Outpatient (REF) | payer OTHER, SELFPAY ==
[2023-02-18 05:58] LABS: CT PCR NOT DETECTED (Not Detect.); NG PCR NOT DETECTED (Not Detect.)
[2023-02-18 14:16] LABS: BV Int Neg Control Negative (Negative); BV Int Pos Control Positive (Positive)
== END 2023-02-17 10:04 | disposition home or self-care (01) ==
LOC: HO.LNP 10:03
PROVIDERS: PCP Internal Medicine; Visit Provider Obstetrics & Gynecology
DX: Z01.419 Encounter for gynecological examination (general) (routine) without abnormal findings (principal); Z20.2 Contact with and (suspected) exposure to infections with a predominantly sexual mode of transmission
CPT/HCPCS: 0353U; 87480; 87510; 87660

== ENCOUNTER 2023-02-17 10:03 | Outpatient (AMB) | payer OTHER, SELFPAY ==
--- NOTE | 2023-02-17 10:08 | A.OFFVIS_ITS ---
Intake Vital Signs 02/17/23 10:09 Height 5 ft 6 in Weight 109 lb BMI 17.6 BP 98/62 Intake Visit Reasons: Annual Intake Note: no concerns Wet End Tester Required: No Information Interpreted: non-clinical & clinical Central Sterile Supply Technician: Central Sterile Supply Technician Present (Puja MARTINEZ) Accompanied by: Self / Same As Patient Allergies pomegranate [POMEGRANATE] Allergy (Mild, Verified 02/17/23 10:13) RASH Seasonal Allergies Allergy (Verified 02/17/23 10:13) Unknown Is last menstrual period known: Yes Last menstrual period: 02/13/23 HPI HPI Comments History of Present Illness Details Presenting for annual exam. No complaints. The patient is interested in STD screen Last Pap was negative in 02/07 [facility] Medical History (Updated 02/17/23 @ 10:19 by Jony Mazariegos MD) Abnormal uterine bleeding (AUB) Acute vaginitis Asthma Cholelithiasis ZULEMA II (cervical intraepithelial neoplasia II) Dysfunctional uterine bleeding Dysplasia of cervix, low grade (ZULEMA 1) Epigastric abdominal pain GERD (gastroesophageal reflux disease) Iron deficiency anemia Left renal stone RUQ abdominal pain Toe fracture, left Ulnar neuropathy Vitamin B12 deficiency Vitamin D deficiency Well woman exam Surgical History H/O LEEP History of esophagogastroduodenoscopy (EGD) History of tonsillectomy History of tubal ligation History of wisdom tooth extraction Family History Father CVD (cardiovascular disease) Myocardial infarction Mother Hodgkin lymphoma Colon cancer Lung cancer Brother Leukemia Colon cancer Maternal Grandmother Diabetes Social History Housing: Apartment Alcohol intake: current Alcohol intake frequency: holidays/special occasions only Patient Tobacco Use Status: Never used Tobacco e-Cigarette/Vaping Use: Never Used Second Hand Smoke Exposure: No service: No Current occupational status: disabled Gender identity: Female Cognitive needs: No Hearing needs: No Vision needs: Yes Female Reproductive History Menstrual Age of Menarche: 13 Date of last menstrual period: 02/13/23 control method: permanent sterilization Total pregnancies: 2 Full term: 2 Number of Living Children: 2 Date of last pap smear: 02/08/21 Review of Systems Const All systems reviewed & are unremarkable except as noted in HPI and below Card Reports as per HPI Resp Reports as per HPI GI Reports as per HPI and Reports no additional complaints Reports as per HPI Physical Exam Vital Signs: Last Vital Signs BP 98/62 02/17/23 10:09 BMI result Body Mass Index 17.6 Const General: cooperative, healthy appearing and comfortable Chest Chest palpation & inspection: normal inspection of the chest and normal palpation of entire chest wall Breast/axilla inspection: normal inspection of the breasts and normal inspection of the axillae Breast/axilla palpation: normal palpation of the breasts, normal palpation of the axillae and no axillary lymphadenopathy Resp Effort & Inspection: normal respiratory effort Auscultation: clear to auscultation bilaterally Percussion: percussion normal Cardio Palpation: normal PMI Rate: regular rate Rhythm: regular rhythm Heart sounds: no murmurs and no rubs Peripheral pulses: Peripheral pulses 2+ throughout GI Inspection: Yes normal to inspection Palpation (GI): Soft to palpation, nontender, no guarding, not rigid and No hepatosplenomegaly present Percussion: Yes normal to percussion Auscultation: normal bowel sounds Rectal Exam - Female: deferred General: Yes bladder normal to palpation External Female Exam: No lesion Speculum Exam - Vagina: normal appearance of the vagina, normal palpation, normal vaginal discharge and not erythematous Speculum Exam - Cervix: normal appearance of the cervix and normal palpation Bimanual exam- vagina & uterus: normal bimanual exam, normal palpation, uterine size normal, bladder normal to palpation, consistency normal and normal palpation Bimanual Exam- Adnexa, other: normal adnexae, no masses and no tenderness Assessment & Plan Assessment & Plan (1) Well woman exam: Code(s): Z01.419 - Encounter for gynecological examination (general) (routine) without abnormal findings Plan: Cotesting not indicated this year. Counseled the patient about the recommended dietary allowance of 1000 mg of Calcium & 600 IU of vitamin D. The patient was instructed to perform monthly self-breast exams and to schedule an annual exam in a year; All questions answered and the patient verbalized understanding. Instructed the patient to schedule annual exam in a year (2) Potential exposure to STD: Code(s): Z20.2 - Contact with and (suspected) exposure to infections with a predominantly sexual mode of transmission Plan: STD screening tests done includes: BV panel for trichomonas, GC/CT will send patient for serology std screening for HIV, RPR, Hep b s Ag, HepC Ab. Instructions given the patient to schedule a follow-up appointment for repeat serology screen in 6 months for possible false negatives. Orders: Orders Hepatitis B Surface Antigen Today Z20.2 - Contact with and (suspected) exposure to infections with a predominantly sexual mode of transmission Hepatitis C Antibody Today Z20.2 - Contact with and (suspected) exposure to infections with a predominantly sexual mode of transmission HIV Ab/Ag Today Z20.2 - Contact with and (suspected) exposure to infections with a predominantly sexual mode of transmission Syphilis Screen Today Z20.2 - Contact with and (suspected) exposure to infections with a predominantly sexual mode of transmission Coding Level of Care Code Est Pt Prev Care [id number]([id number]) Diagnoses Well woman exam Z01.419 Potential exposure to STD Z20.2
[2023-02-17 10:09] VITALS: BP 98/62; BMI 17.6
== END 2023-02-17 10:27 | disposition home or self-care (01) ==
LOC: HO.HWS 10:03
PROVIDERS: PCP Internal Medicine; Visit Provider Obstetrics & Gynecology
DX: Z01.419 Encounter for gynecological examination (general) (routine) without abnormal findings (principal); Z20.2 Contact with and (suspected) exposure to infections with a predominantly sexual mode of transmission
CPT/HCPCS: 99395

== ENCOUNTER 2023-02-27 11:43 | Outpatient (REF) | payer OTHER, SELFPAY ==
[2023-02-28 03:05] LABS: Syphilis Screen Nonreactive (Nonreactive)
[2023-02-28 03:12] LABS: HBsAGNum1 0.34 S/CO (0.00-0.99); HIV AB/AG Nonreactive (Nonreactive); HIV Num 1 0.05 S/CO (0.00-0.99); Hepatitis B Surface Antigen Negative (Negative); ~HepC Num1 0.07 S/CO (0.00-0.79); ~Hepatitis C Antibody Nonreactive (Nonreactive)
== END 2023-02-27 11:44 | disposition home or self-care (01) ==
LOC: HO.LAB 11:43
PROVIDERS: PCP Internal Medicine; Visit Provider Obstetrics & Gynecology
DX: Z11.4 Encounter for screening for human immunodeficiency virus [HIV] (principal); Z20.2 Contact with and (suspected) exposure to infections with a predominantly sexual mode of transmission
CPT/HCPCS: 36415; 86780; 86803; 87340; 87389

== ENCOUNTER 2023-02-27 12:24 | Outpatient (AMB) | payer OTHER, SELFPAY ==
[2023-02-27 12:30] VITALS: BP 110/52; PULSE 112; O2SAT 98; BMI 17.8
--- NOTE | 2023-02-27 12:30 | A.OFFPC_ITS ---
Vital Signs 02/27/23 12:30 Height 5 ft 6 in Weight 110 lb BMI 17.8 BP 110/52 L Blood Pressure Location Lt brachial Position Sitting Pulse 112 H Pulse Source Pulse Oximeter Pulse Oximetry (%) 98 Oxygen Delivery Method Room Air Intake Visit Reasons: Annual Exam Allergies pomegranate [POMEGRANATE] Allergy (Mild, Verified 02/27/23 12:31) RASH Seasonal Allergies Allergy (Verified 02/27/23 12:31) Unknown Medication List - Last Reconciled 02/27/23 by Viridiana Garcia MD ascorbic acid (vitamin C) 500 mg PO .QD 90 days biotin 1 mg PO DAILY calcium carbonate 500 mg PO DAILY famotidine 20 mg PO BEDTIME ferrous sulfate (Feosol) 325 mg PO DAILY 90 days fexofenadine (Elyssa Allergy) 180 mg PO DAILY folic acid 1 mg PO DAILY multivitamin 1 tab PO DAILY omega-3 fatty acids (Fish Oil Concentrate) 1,000 mg PO DAILY omeprazole 20 mg PO DAILY tranexamic acid (Lysteda) 1,300 mg (2 x 650 mg) PO TID Tobacco use date assessed: 10/24/22 Dental Screening Dental Screen Date: 02/27/23 Did you have a dental visit in the last 12 months?: Yes Did you have a dental problem in the last 6 months where you did not have access to dental care?: No Was dental information given to patient?: Patient has dentist HPI Annual Exam HPI Details 32-year-old female with a history of left renal calculi cholelithiasis generalized anxiety disorder and GERD last seen in October 2022. Patient is here for follow-up patient had an EGD done showing mild esophagitis but no H pylori. Discussed also on cholelithiasis and will continue to monitor for now but low- fat diet is important [facility] Medical History (Updated 02/27/23 @ 13:07 by Viridiana Garcia MD) Abnormal uterine bleeding (AUB) Acute vaginitis Asthma Cholelithiasis ZULEMA II (cervical intraepithelial neoplasia II) Dysfunctional uterine bleeding Dysplasia of cervix, low grade (ZULEMA 1) Epigastric abdominal pain GERD (gastroesophageal reflux disease) Iron deficiency anemia Left renal stone RUQ abdominal pain Toe fracture, left Ulnar neuropathy Vitamin B12 deficiency Vitamin D deficiency Well woman exam Surgical History H/O LEEP History of esophagogastroduodenoscopy (EGD) History of tonsillectomy History of tubal ligation History of wisdom tooth extraction Family History Father CVD (cardiovascular disease) Myocardial infarction Mother Hodgkin lymphoma Colon cancer Lung cancer Brother Leukemia Colon cancer Maternal Grandmother Diabetes Social History (Updated 02/27/23 @ 13:08 by Viridiana Garcia MD) Housing: Apartment Alcohol intake: current Alcohol intake frequency: holidays/special occasions only Patient Tobacco Use Status: Never used Tobacco e-Cigarette/Vaping Use: Never Used Second Hand Smoke Exposure: No service: No Current occupational status: disabled Gender identity: Female Cognitive needs: No Hearing needs: No Vision needs: Yes Female Reproductive History Menstrual Age of Menarche: 13 Questionnaire PHQ-9 Over the last 2 weeks, how often have you been bothered by any of the following problems? 1. Little interest or pleasure in doing things: not at all 2. Feeling down, depressed, or hopeless: not at all 3. Trouble falling or staying asleep, or sleeping too much: not at all 4. Feeling tired or having little energy: not at all 5. Poor appetite or overeating: not at all 6. Feeling bad about yourself - or that you are a failure or have let yourself or your family down: not at all 7. Trouble concentrating on things, such as reading the newspaper or watching television: not at all 8. Moving or speaking so slowly that other people could have noticed. Or the opposite - being so fidgety or restless that you have been moving around a lot more than usual: not at all 9. Thoughts that you would be better off or of hurting yourself in some way: not at all Total score: 0 Depression Screening Interpretation: Negative Source: Developed by Drs. Sudeep Mckeon, Aura Bradley, Jatin Quiles and colleagues, with an educational binta from [employer]. Thrive Questionnaire Date Thrive assessed: 10/24/22 AUDIT C Alcohol Use Questionnaire (AUDIT-C) 1. How often do you have a drink containing alcohol?: 2-3 times a week 2. How many drinks containing alcohol do you have on a typical day when you are drinking?: 1 or 2 3. How often do you have six or more drinks on one occasion?: Never Total Score: 3 ERIK-7 AMB Questionnaire ERIK-7 Date ERIK - 7 assessed: 10/24/22 Source: Developed by Drs. Sudeep Mckeon, Aura Bradley, Jatin Quiles and colleagues, with an educational binta from [employer]. Review of Systems Const Denies poor appetite and Denies weakness Eyes Denies no additional complaints ENT Reports Normal hearing present, Denies dizziness, Denies nasal congestion, Denies tinnitus and Denies sore throat Card Denies chest pain, Denies syncope, Denies rapid heart rate and Denies dyspnea Resp Denies cough and Denies dyspnea GI Denies change in stool character, Reports constipation, Denies diarrhea, Denies nausea and Denies vomiting Denies urinary frequency, Denies difficulty voiding and Denies dysuria Neuro Reports Normal hearing present, Denies confusion, Denies dizziness, Denies syncope and Denies weakness Psych Denies confusion Physical exam (Primary Care) Vital Signs: Last Vital Signs Pulse 112 H 02/27/23 12:30 BP 110/52 L 02/27/23 12:30 Pulse Ox 98 02/27/23 12:30 Oxygen Delivery Method Room Air 02/27/23 12:30 BMI result Body Mass Index 17.8 Tobacco/Smoking Status: Tobacco use Status Tobacco use date assessed 10/24/22 02/27/23 12:33 Patient Tobacco Use Status Never used Tobacco 02/27/23 12:33 e-Cigarette/Vaping Use Never Used 02/27/23 12:33 PHQ-9: PHQ-9 Score PHQ-9: Total score 0 02/27/23 12:41 Depression Screening Interpretation: Negative Thrive Assessment: Date of Thrive Assessment Date Thrive assessed 10/24/22 02/27/23 12:33 Const General: No confusion Orientation/consciousness: No confusion HENMT Head: Yes normocephalic Ears: external ears normal and TM's normal bilaterally Face and sinus: Yes normal facial exam Mouth: moist mucous membranes Throat: Yes tonsils normal Eyes Conjunctivae: conjunctivae normal Pupils: Equal, round and reactive pupils present and Pupil accommodation reflex normal Direct Ophthalmoscopy: normal light reflex Neck Neck: No lymphadenopathy Thyroid: Thyroid normal Chest Chest palpation & inspection: normal inspection of the chest Resp Effort & Inspection: normal respiratory effort and no audible wheezes Auscultation: clear to auscultation bilaterally, no crackles, no wheezes and lung sounds not diminished Cardio Rate: regular rate Rhythm: regular rhythm Peripheral pulses: radial pulses present and dorsalis pedis present GI Palpation (GI): no masses Auscultation: normal bowel sounds and normoactive bowel sounds Rectal Exam - Female: deferred Skin General skin exam: no rashes or lesions noted Rashes: no rashes Neuro General: No confusion Cranial nerves: Yes Equal, round and reactive pupils present and Yes Normal hearing present Cognition (Neuro): normal cognition Gait exam (Neuro): Normal gait present Motor exam (neuro): 5/5 motor strength present throughout Deep tendon reflexes (DTR's): Right brachioradialis reflex intensity grade: 2+, Left brachioradialis reflex intensity grade: 2+, Right patellar reflex intensity grade: 2+ and Left patellar reflex intensity grade: 2+ Extrem General: No edema Assessment and Plan Assessment & Plan (1) Annual physical exam: Code(s): Z00.00 - Encounter for general adult medical examination without abnormal findings (2) Left renal stone: Comment: July 2018, 03/2022 Code(s): N20.0 - Calculus of kidney Plan: Increase oral fluids (3) Cholelithiases: Comment: 03/2022 Code(s): K80.20 - Calculus of gallbladder without cholecystitis without obstruction Qualifiers: Cholelithiasis location: gallbladder Cholecystitis presence: without cholecystitis Biliary obstruction: without biliary obstruction Qualified Code(s): K80.20 - Calculus of gallbladder without cholecystitis without obstruction Plan: Low-fat diet (4) Generalized anxiety disorder: Code(s): F41.1 - Generalized anxiety disorder Plan: advised to continue with counselling and therapy (5) GERD (gastroesophageal reflux disease): Code(s): K21.9 - Gastro-esophageal reflux disease without esophagitis Qualifiers: Esophagitis presence: without esophagitis Qualified Code(s): K21.9 - Gastro-esophageal reflux disease without esophagitis Plan: Avoid the foods that causes that usually spicy foods, tomato products, juices, coffee, soda and foods that your sensitive to. After eating do not lie down, allow 3-4 hours before in lie down. And keep the head of bed above 30 degrees to avoid the acid from going up. On famotidine and omeprazole being followed up by Gastroenterology (6) Family history of colon cancer: Code(s): Z80.0 - Family history of malignant neoplasm of digestive organs Plan: Anoscopy done in 2018 and has been advised colon cancer screening starts at 45 years old. Coding Level of Care Code Est Pt Prev Care 18-39y(58614) Diagnoses Annual physical exam Z00.00 Left renal stone N20.0 Cholelithiases K80.20 Cholelithiasis location: gallbladder Cholecystitis presence: without cholecystitis Biliary obstruction: without biliary obstruction Generalized anxiety disorder F41.1 GERD (gastroesophageal reflux disease) K21.9 Esophagitis presence: without esophagitis Family history of colon cancer Z80.0
== END 2023-02-27 13:17 | disposition home or self-care (01) ==
PROVIDERS: Visit Provider Internal Medicine
DX: Z00.00 Encounter for general adult medical examination without abnormal findings (principal); K21.9 Gastro-esophageal reflux disease without esophagitis; Z80.0 Family history of malignant neoplasm of digestive organs; N20.0 Calculus of kidney; K80.20 Calculus of gallbladder without cholecystitis without obstruction; F41.1 Generalized anxiety disorder
CPT/HCPCS: 99395

== ENCOUNTER 2023-04-25 11:06 | Outpatient (AMB) | payer OTHER, SELFPAY ==
[2023-04-25 11:16] VITALS: BP 106/52; PULSE 77; O2SAT 98; BMI 17.4
--- NOTE | 2023-04-25 11:16 | MHC.PC.OV ---
Vital Signs 04/25/23 11:16 Height 5 ft 6 in Weight 108 lb BMI 17.4 BP 106/52 L Blood Pressure Location Lt brachial Position Sitting Pulse 77 Pulse Source Pulse Oximeter Pulse Oximetry (%) 98 Oxygen Delivery Method Room Air Intake Visit Reasons: general malaise Allergies pomegranate [POMEGRANATE] Allergy (Mild, Verified 04/25/23 11:17) RASH Seasonal Allergies Allergy (Verified 04/25/23 11:17) Unknown Tobacco use date assessed: 10/24/22 Dental Screening Dental Screen Date: 04/25/23 Did you have a dental visit in the last 12 months?: Yes Did you have a dental problem in the last 6 months where you did not have access to dental care?: No Was dental information given to patient?: Patient has dentist HPI general malaise HPI Details 33-year-old underweight female with a history of left renal calculi cholelithiasis generalized anxiety disorder GERD coming in for follow-up. Last seen in February 2023 for physical exam. feeling nausea 2 week patient has a vague abdominal pain on mid abdomen as well as on the right upper quadrant. Denies any vomiting no coughs no colds no shortness of breath no bowel problems denies any urinary symptoms. Patient had a workup for the gallbladder in June 2022 which revealed negative results. We do know from previous February 2022 ultrasound that the patient has multiple gallbladder stones. [facility] Medical History (Updated 04/25/23 @ 11:36 by Viridiana Garcia MD) RUQ abdominal pain Cholelithiasis Epigastric abdominal pain Abnormal uterine bleeding (AUB) Dysfunctional uterine bleeding Well woman exam ZULEMA II (cervical intraepithelial neoplasia II) Acute vaginitis Toe fracture, left Iron deficiency anemia Ulnar neuropathy Left renal stone Vitamin B12 deficiency Dysplasia of cervix, low grade (ZULEMA 1) GERD (gastroesophageal reflux disease) Asthma Vitamin D deficiency Surgical History History of esophagogastroduodenoscopy (EGD) H/O LEEP History of tubal ligation History of wisdom tooth extraction History of tonsillectomy Family History Father CVD (cardiovascular disease) Myocardial infarction Mother Hodgkin lymphoma Colon cancer Lung cancer Brother Leukemia Colon cancer Maternal Grandmother Diabetes Social History (Updated 02/27/23 @ 13:08 by Viridiana Garcia MD) Housing: Apartment Alcohol intake: current Alcohol intake frequency: holidays/special occasions only Patient Tobacco Use Status: Never used Tobacco e-Cigarette/Vaping Use: Never Used Second Hand Smoke Exposure: No service: No Current occupational status: disabled Gender identity: Female Cognitive needs: No Hearing needs: No Vision needs: Yes Female Reproductive History Menstrual Age of Menarche: 13 Questionnaire PHQ-9 Over the last 2 weeks, how often have you been bothered by any of the following problems? 1. Little interest or pleasure in doing things: not at all 2. Feeling down, depressed, or hopeless: not at all 3. Trouble falling or staying asleep, or sleeping too much: not at all 4. Feeling tired or having little energy: not at all 5. Poor appetite or overeating: not at all 6. Feeling bad about yourself - or that you are a failure or have let yourself or your family down: not at all 7. Trouble concentrating on things, such as reading the newspaper or watching television: not at all 8. Moving or speaking so slowly that other people could have noticed. Or the opposite - being so fidgety or restless that you have been moving around a lot more than usual: not at all 9. Thoughts that you would be better off or of hurting yourself in some way: not at all Total score: 0 Depression Screening Interpretation: Negative Depression Screening Done: Yes Source: Developed by Drs. Sudeep Mckeon, Aura Bradley, Jatin Quiles and colleagues, with an educational binta from [employer]. Thrive Questionnaire Date Thrive assessed: 10/24/22 AUDIT C Alcohol Use Questionnaire (AUDIT-C) 1. How often do you have a drink containing alcohol?: 2-3 times a week 2. How many drinks containing alcohol do you have on a typical day when you are drinking?: 1 or 2 3. How often do you have six or more drinks on one occasion?: Never Total Score: 3 ERIK-7 AMB Questionnaire ERIK-7 Date ERIK - 7 assessed: 10/24/22 Source: Developed by Drs. Sudeep Mckeon, Aura Bradley, Jatin Quiles and colleagues, with an educational binta from [employer]. Physical exam (Primary Care) Vital Signs: Last Vital Signs Pulse 77 04/25/23 11:16 BP 106/52 L 04/25/23 11:16 Pulse Ox 98 04/25/23 11:16 Oxygen Delivery Method Room Air 04/25/23 11:16 Next steps: Vague tenderness on the right upper quadrant, tender on palpation on mid epigastrium also denies any flank pain no rebound no guarding. BMI result Body Mass Index 17.4 Tobacco/Smoking Status: Tobacco use Status Tobacco use date assessed 10/24/22 04/25/23 11:21 Patient Tobacco Use Status Never used Tobacco 04/25/23 11:21 e-Cigarette/Vaping Use Never Used 04/25/23 11:21 PHQ-9: PHQ-9 Score PHQ-9: Total score 0 04/25/23 11:21 Depression Screening Interpretation: Negative Thrive Assessment: Date of Thrive Assessment Date Thrive assessed 10/24/22 04/25/23 11:21 Const General: alert; No acute distress Eyes Conjunctivae: conjunctivae normal Resp Auscultation: clear to auscultation bilaterally Cardio Rate: regular rate Rhythm: regular rhythm GI Inspection: Yes normal to inspection Extrem General: Yes normal to inspection and No edema Assessment and Plan Assessment & Plan (1) Anemia: Code(s): D64.9 - Anemia, unspecified Plan: Patient on iron and vitamin-C and will continue to monitor (2) Left renal stone: Comment: July 2018, 03/2022 Code(s): N20.0 - Calculus of kidney Plan: Patient has been strongly advised to keep well hydrated (3) Generalized anxiety disorder: Code(s): F41.1 - Generalized anxiety disorder Plan: Stable (4) GERD (gastroesophageal reflux disease): Code(s): K21.9 - Gastro-esophageal reflux disease without esophagitis Qualifiers: Esophagitis presence: without esophagitis Qualified Code(s): K21.9 - Gastro-esophageal reflux disease without esophagitis Plan: Avoid the foods that causes that usually spicy foods, tomato products, juices, coffee, soda and foods that your sensitive to. After eating do not lie down, allow 3-4 hours before in lie down. And keep the head of bed above 30 degrees to avoid the acid from going up. (5) RUQ abdominal pain: Code(s): R10.11 - Right upper quadrant pain Plan: Advised to order ultrasound and blood work as the patient has a history of gallbladder stone Orders: Orders US abdomen complete Today K80.20 - Calculus of gallbladder without cholecystitis without obstruction, R79.89 - Other specified abnormal findings of blood chemistry Lipase Today K80.20 - Calculus of gallbladder without cholecystitis without obstruction Amylase Today K80.20 - Calculus of gallbladder without cholecystitis without obstruction Complete Blood Count Auto Diff Today K80.20 - Calculus of gallbladder without cholecystitis without obstruction Comprehensive Met. Panel Today K80.20 - Calculus of gallbladder without cholecystitis without obstruction UA w Microscopic Today K80.20 - Calculus of gallbladder without cholecystitis without obstruction Coding Level of Care Code Est Pt Level 4 (92693) Diagnoses Anemia D64.9 Left renal stone N20.0 Generalized anxiety disorder F41.1 Gastroesophageal reflux disease without esophagitis K21.9 Esophagitis presence: without esophagitis RUQ abdominal pain R10.11
== END 2023-04-25 11:36 | disposition home or self-care (01) ==
PROVIDERS: PCP Internal Medicine; Visit Provider Internal Medicine
DX: D64.9 Anemia, unspecified (principal); N20.0 Calculus of kidney; F41.1 Generalized anxiety disorder; K21.9 Gastro-esophageal reflux disease without esophagitis; R10.11 Right upper quadrant pain; Z23 Encounter for immunization
CPT/HCPCS: 99214

== ENCOUNTER 2023-05-07 09:40 | Outpatient (REF) | payer OTHER, SELFPAY ==
[2023-05-07 10:30] LABS: MANUAL DIFF FLAG NO
[2023-05-07 10:58] LABS: Basophils Percent Auto 0.3 % (0-2); Eosinophils Percent Auto 0.5 % (0-4); Hematocrit 34.4 % (37.0-47.0); Hemoglobin 10.8 g/dl (12.0-16.0); Imm Gran Abs Auto 0.02 X10*3/uL (0.00-0.03); Imm Gran Pct Auto 0.3 % (0.0-0.4); Lymphocytes Percent Auto 33.3 % (20-40); Mean Corpuscular HGB Conc 31.4 g/dl (31.0-35.0); Mean Corpuscular Hemoglobin 26.7 pg (27.0-33.0); Mean Corpuscular Volume 85.1 fL (80.0-98.0); Mean Platelet Volume 10.3 fL (9.4-12.3); Monocytes Absolute Auto 0.4 X10*3/uL (0.1-1.2); Monocytes Percent Auto 6.5 % (2-11); Neutrophils Absolute Auto 3.6 x10*3/uL (2.0-8.3); Neutrophils Percent Auto 59.1 % (45-73); Platelet Count 198 X10*3/uL (160-400); Red Blood Count 4.04 X10*6/uL (4.20-5.50)
[2023-05-07 11:36] LABS: Alanine Aminotransferase 19 U/L (0-31); Albumin Level 4.2 g/dL (3.5-5.0); Alkaline Phosphatase 69 U/L (39-117); Amylase 49 U/L (28-100); Anion Gap 11 (12-20); Aspartate Amino Transferase 14 U/L (5-31); Bilirubin Total 0.3 mg/dL (0.0-1.0); Blood Urea Nitrogen 9 mg/dL (9-16); Carbon Dioxide 24 mmol/L (22-29); Chloride 107 mmol/L (96-108); Estimated Glomerular Filt Rate > 60; Glucose Random 80 mg/dL (60-115); Lipase 18 U/L (8-78); Potassium 3.6 mmol/L (3.3-5.1); Sodium 138 mmol/L (135-145)
[2023-05-07 12:11] LABS: Appearance Urine Clear; Color Urine Yellow; Glucose Urine UA Negative (Negative); Leukocyte Esterase Urine Negative (Negative); Nitrite Urine Negative (Negative); PH 7.5 (5.0-9.0); Urine Blood Negative (Negative); Urine Ketones Negative (Negative); Urine Protein Negative (Neg-Trace)
[2023-05-07 12:15] LABS: Bacteria Urine None Seen (None Seen); Hyaline Casts Urine 0-2 /LPF (0-2); WBC Urine 0-5 /HPF (0-5)
== END 2023-05-07 09:41 | disposition home or self-care (01) ==
LOC: HO.LAB 09:40
PROVIDERS: Absent Provider Internal Medicine; PCP Internal Medicine; Visit Provider Orthopaedic Surgery
DX: K80.20 Calculus of gallbladder without cholecystitis without obstruction (principal); M67.431 Ganglion, right wrist
CPT/HCPCS: 36415; 80053; 81001; 82150; 83690; 85025; 99212

== ENCOUNTER 2023-05-07 09:40 | Outpatient (AMB) | payer OTHER, SELFPAY ==
--- NOTE | 2023-05-07 09:42 | A.OFFVIS_ITS ---
Intake Vital Signs 05/07/23 09:46 Height 5 ft 6 in Weight 108 lb BMI 17.4 Intake Visit Reasons: OV- Ganglion RT hand Intake Note: Meagan 33 year old female presents today for her follow up visit for her Right dorsal wrist ganglion, last aspirated on 10/24/2020. States cyst has increase slighly n size. Patient would like to discuss surgical intervention. Allergies pomegranate [POMEGRANATE] Allergy (Mild, Verified 05/07/23 09:52) RASH Seasonal Allergies Allergy (Verified 05/07/23 09:52) Unknown HPI OV- Ganglion RT hand HPI Details Meagan is a 33 year old right hand dominant disabled woman who does not work. She returns to discuss her left dorsal wrist ganglion. She had this aspirated by me on 10/24/20, and she was last seen on 08/21/21 where it recurred, but it was too small to attempt repeat aspiration or consider surgery. She presents today saying this ganglion has increased in size recently, but she says this has shrunk since she made her appointment for today. [facility] Medical History (Updated 04/25/23 @ 11:36 by Viridiana Garcia MD) RUQ abdominal pain Cholelithiasis Epigastric abdominal pain Abnormal uterine bleeding (AUB) Dysfunctional uterine bleeding Well woman exam ZULEMA II (cervical intraepithelial neoplasia II) Acute vaginitis Toe fracture, left Iron deficiency anemia Ulnar neuropathy Left renal stone Vitamin B12 deficiency Dysplasia of cervix, low grade (ZULEMA 1) GERD (gastroesophageal reflux disease) Asthma Vitamin D deficiency Surgical History History of esophagogastroduodenoscopy (EGD) H/O LEEP History of tubal ligation History of wisdom tooth extraction History of tonsillectomy Family History Father CVD (cardiovascular disease) Myocardial infarction Mother Hodgkin lymphoma Colon cancer Lung cancer Brother Leukemia Colon cancer Maternal Grandmother Diabetes Social History Housing: Apartment Alcohol intake: current Alcohol intake frequency: holidays/special occasions only Patient Tobacco Use Status: Never used Tobacco e-Cigarette/Vaping Use: Never Used Second Hand Smoke Exposure: No service: No Current occupational status: disabled Gender identity: Female Cognitive needs: No Hearing needs: No Vision needs: Yes Female Reproductive History Menstrual Age of Menarche: 13 Review of Systems Const All systems reviewed & are unremarkable except as noted in HPI and below Physical Exam Vital Signs: BMI result Body Mass Index 17.4 Const General: no acute distress and alert Orientation/consciousness: patient oriented x3 Neuro General: patient oriented x3 Extrem Other: Evaluation of Right Upper Extremity: The patient is alert, oriented, and in no acute distress Neuro: Median, Ulnar, Radial nerves motor and sensory intact and sensation is normal to the tips of all digits Vascular: Cap refill brisk ROM: She can make a fist and extend all her digits No locking or catching She has a possible dorsal wrist ganglion over the dorsal aspect of the right wrist. Again we see this as a somewhat prominent area directly over the capitate only seen when the wrist is in flexion. It is actually quite similar to the opposite wrist except there is perhaps a slightly fluid filled relatively flat area over the capitate. Not visible with the wrist in neutral. Nontender. No overlying skin changes. Psych Appearance: grossly normal Affect: normal affect Attitude: cooperative Assessment & Plan Assessment & Plan (1) Dorsal wrist ganglion: Code(s): M67.439 - Ganglion, unspecified wrist Plan Assessment and plan: 1. Right dorsal wrist ganglion, recurrence S/P aspiration Date of aspiration: 10/24/20 Relatively flat, and appreciated directly over the capitate only with the wrist in flexion. I educated her about this condition I am ordering an ultrasound to evaluate this area and assess whether this is in fact a ganglion cyst, and then to assess in size. She will follow up when completed for review. Scribed for Remedios Adams MD by Loco Farrar, medical billing clerk, on 05/07/23 at 10:10 AM, EST. Orders: Orders US extremity nonvascular Today M67.439 - Ganglion, unspecified wrist Coding Level of Care Code Est Pt Level 3 (17274) Diagnoses Dorsal wrist ganglion M67.439
[2023-05-07 09:46] VITALS: BMI 17.4
== END 2023-05-07 10:11 | disposition home or self-care (01) ==
PROVIDERS: PCP Internal Medicine; Visit Provider Orthopaedic Surgery
DX: M67.431 Ganglion, right wrist (principal)
CPT/HCPCS: 99213

== ENCOUNTER 2023-05-29 08:58 | Outpatient (REF) | payer OTHER, SELFPAY ==
--- NOTE | ~2023-05-29 | US_ITS ---
EXAMINATION: US ABDOMEN COMPLETE CLINICAL INFORMATION: Other specified abnormal findings of blood chemistry. COMPARISON: Ultrasound abdomen complete 03/20/2022. TECHNIQUE: Real-time imaging of the abdominal viscera. FINDINGS: PANCREAS: Normal. ABDOMINAL AORTA: The proximal, mid, and distal segments are normal in caliber. INFERIOR VENA CAVA: Visualized portions are normal. LIVER: The liver is normal in size. The liver contour is normal. Parenchymal echogenicity is normal. No focal hepatic lesion. There is no intrahepatic biliary duct dilatation seen. GALLBLADDER: The gallbladder is physiologically distended. Cholelithiasis. No evidence of gallbladder wall thickening or pericholecystic fluid. COMMON BILE DUCT: Normal in caliber measuring 0.2 cm in diameter. RIGHT KIDNEY: Normal. No hydronephrosis. No renal calculi or focal parenchymal lesions. The kidney measures 9.5 cm in maximum dimension. LEFT KIDNEY: No hydronephrosis or renal calculi. The kidney measures 9.8 cm in maximum dimension. Likely benign renal cyst measuring 0.7 cm with a thin internal septation. No follow up imaging is recommended. SPLEEN: Normal. The spleen measures 9.6 cm in maximum dimension. FREE FLUID: None. US/US abdomen complete IMPRESSION: Cholelithiasis without evidence of acute cholecystitis.
== END 2023-05-29 08:59 | disposition home or self-care (01) ==
LOC: HO.US 08:58
PROVIDERS: PCP Internal Medicine; Visit Provider Internal Medicine
DX: K80.20 Calculus of gallbladder without cholecystitis without obstruction (principal); R79.89 Other specified abnormal findings of blood chemistry
CPT/HCPCS: 76700

== ENCOUNTER 2023-06-03 08:36 | Outpatient (AMB) | payer OTHER, SELFPAY ==
[2023-06-03 08:38] VITALS: BP 94/60; BMI 17.4
--- NOTE | 2023-06-03 08:38 | MHC.OFFVIS ---
Intake Vital Signs 06/03/23 08:38 Height 5 ft 6 in Weight 108 lb BMI 17.4 BP 94/60 Intake Visit Reasons: STD Testing Intake Note: Scribed for Hannah Samuel CNM by Loco Farrar, medical staff specialist, on [ ] at [ ], EST Catering Associate: Catering Associate Present (Piper) Allergies pomegranate [POMEGRANATE] Allergy (Mild, Verified 06/03/23 09:20) RASH Seasonal Allergies Allergy (Verified 06/03/23 09:20) Unknown Is last menstrual period known: Yes Last menstrual period: 05/08/23 HPI HPI Comments History of Present Illness Details Patient presents today with concerns of vaginal itching and increased urination. She would like to discuss STI testing. She is sexually active and denies any change in her sexual partner. She is expecting her period soon, she says she gets them regularly. She reports some occasional pelvic pain. [facility] Medical History RUQ abdominal pain Cholelithiasis Epigastric abdominal pain Abnormal uterine bleeding (AUB) Dysfunctional uterine bleeding Well woman exam ZULEMA II (cervical intraepithelial neoplasia II) Acute vaginitis Toe fracture, left Iron deficiency anemia Ulnar neuropathy Left renal stone Vitamin B12 deficiency Dysplasia of cervix, low grade (ZULEMA 1) GERD (gastroesophageal reflux disease) Asthma Vitamin D deficiency Surgical History History of esophagogastroduodenoscopy (EGD) H/O LEEP History of tubal ligation History of wisdom tooth extraction History of tonsillectomy Family History Father CVD (cardiovascular disease) Myocardial infarction Mother Hodgkin lymphoma Colon cancer Lung cancer Brother Leukemia Colon cancer Maternal Grandmother Diabetes Social History Housing: Apartment Alcohol intake: current Alcohol intake frequency: holidays/special occasions only Patient Tobacco Use Status: Never used Tobacco e-Cigarette/Vaping Use: Never Used Second Hand Smoke Exposure: No service: No Current occupational status: disabled Gender identity: Female Cognitive needs: No Hearing needs: No Vision needs: Yes Female Reproductive History Menstrual Age of Menarche: 13 Duration of menses: 6-7 days Date of last menstrual period: 05/08/23 Review of Systems Const All systems reviewed & are unremarkable except as noted in HPI and below Physical Exam Vital Signs: Last Vital Signs BP 94/60 06/03/23 08:38 BMI result Body Mass Index 17.4 Const General: cooperative, healthy appearing and no acute distress Orientation/consciousness: patient oriented x3 GI Inspection: Yes normal to inspection Palpation (GI): Soft to palpation and Other GI palpation findings present (Nontender) Rectal Exam - Female: visual inspection normal General: Yes bladder normal to palpation External Female Exam: normal appearance of the urethra Speculum Exam - Vagina: normal appearance of the vagina, normal palpation and normal vaginal discharge (White) Speculum Exam - Cervix: normal appearance of the cervix and normal palpation Bimanual exam- vagina & uterus: normal bimanual exam, normal palpation, uterine size normal, bladder normal to palpation, normal palpation, uterine shape normal and non-tender Bimanual Exam- Adnexa, other: normal adnexae Neuro General: patient oriented x3 Results AMB Test Urine AMB Test Urine Negative Last Edit by MICHELLE Urbina on 06/03/23 09:22 AMB Urinalysis, Automated UA Leukoctes 0 Tricia/uL Last Edit by MICHELLE Urbina on 06/03/23 09:22 UA Nitrite Negative Last Edit by MICHELLE Urbina on 06/03/23 09:22 UA Urobilinogen 0 mg/dL Last Edit by MICHELLE Urbina on 06/03/23 09:22 UA Protein 0 mg/dL Last Edit by MICHELLE Urbina on 06/03/23 09:22 UA pH 6.0 Last Edit by MICHELLE Urbina on 06/03/23 09:22 UA Blood 0 Juan/uL Last Edit by MICHELLE Urbina on 06/03/23 09:22 UA Specific [place] 1.020 Last Edit by MICHELLE Urbina on 06/03/23 09:22 UA Ketone Negative Last Edit by MICHELLE Urbina on 06/03/23 09:22 UA Bilirubin 0 mg/dL Last Edit by MICHELLE Urbina on 06/03/23 09:22 UA Glucose 0 mg/dL Last Edit by MICHELLE Urbina on 06/03/23 09:22 Results Reviewed Results Reviewed: Laboratory Last Values Urine pH (Auto) 6.0 06/03/23 08:53 Specific [place] (Auto) 1.020 06/03/23 08:53 Urine Protein (Auto) 0 mg/dL 06/03/23 08:53 Glucose (UA)(Auto) 0 mg/dL 06/03/23 08:53 Urine Ketones (Auto) Negative 06/03/23 08:53 Urine Blood (Auto) 0 Juan/uL 06/03/23 08:53 Urine Nitrite (Auto) Negative 06/03/23 08:53 Urine Bilirubin (Auto) 0 mg/dL 06/03/23 08:53 Urine Urobilinogen (Auto) 0 mg/dL 06/03/23 08:53 Leukocyte Esterase (Auto) 0 Tricia/uL 06/03/23 08:53 Tst Clinic Negative 06/03/23 08:53 Assessment & Plan Assessment & Plan (1) Screening for STD (sexually transmitted disease): Code(s): Z11.3 - Encounter for screening for infections with a predominantly sexual mode of transmission Plan: Increased frequency or urination & vaginal itchiness. Cultures and labs ordered to test for STIs, BV, & HIV. test also ordered, negative. Maintaining a healthy lifestyle including a well balanced diet and routine exercise. Encouraged condom use for STD and prevention. All of her questions and concerns were addressed to the best of my ability She will follow up as scheduled for her annual (2) Vaginal itching: Code(s): N89.8 - Other specified noninflammatory disorders of vagina (3) Micturition frequency: Code(s): R35.0 - Frequency of micturition Orders: Orders Hepatitis B Core Antibody Today Z20.2 - Contact with and (suspected) exposure to infections with a predominantly sexual mode of transmission Hepatitis C Antibody Today Z20.2 - Contact with and (suspected) exposure to infections with a predominantly sexual mode of transmission Syphilis Screen Today Z20.2 - Contact with and (suspected) exposure to infections with a predominantly sexual mode of transmission HIV Ab/Ag Today Z20.2 - Contact with and (suspected) exposure to infections with a predominantly sexual mode of transmission AMB HCG Urine Test Today Z32.02 - Encounter for test, result negative AMB Urinalysis Automated Today R35.0 - Frequency of micturition Bacterial Vaginosis Panel Today N89.8 - Other specified noninflammatory disorders of vagina, Z11.3 - Encounter for screening for infections with a predominantly sexual mode of transmission CT NG by PCR Today N89.8 - Other specified noninflammatory disorders of vagina, Z11.3 - Encounter for screening for infections with a predominantly sexual mode of transmission Coding Level of Care Code Est Pt Level 3 (76623) Diagnoses Screening for STD (sexually transmitted disease) Z11.3 Vaginal itching N89.8 Micturition frequency R35.0
== END 2023-06-03 09:02 | disposition home or self-care (01) ==
LOC: HO.HWS 08:36
PROVIDERS: PCP Internal Medicine; Visit Provider Advanced Practice Midwife
DX: Z11.3 Encounter for screening for infections with a predominantly sexual mode of transmission (principal); N89.8 Other specified noninflammatory disorders of vagina; R35.0 Frequency of micturition; Z32.02 Encounter for pregnancy test, result negative
CPT/HCPCS: 99213

== ENCOUNTER 2023-06-03 08:36 | Outpatient (REF) | payer OTHER, SELFPAY ==
[2023-06-03 11:40] LABS: HBc Num1 0.06 S/CO (0.00-0.79); HIV AB/AG Nonreactive (Nonreactive); HIV Num 1 0.06 S/CO (0.00-0.99); Hepatitis B Core Antibody Nonreactive (Nonreactive); ~HepC Num1 0.05 S/CO (0.00-0.79); ~Hepatitis C Antibody Nonreactive (Nonreactive)
[2023-06-03 11:41] LABS: Syphilis Screen Nonreactive (Nonreactive)
[2023-06-03 13:48] LABS: CT PCR NOT DETECTED (Not Detect.); NG PCR NOT DETECTED (Not Detect.)
[2023-06-04 12:02] LABS: BV Int Neg Control Negative (Negative); BV Int Pos Control Positive (Positive)
== END 2023-06-03 08:37 | disposition home or self-care (01) ==
LOC: HO.LAB 08:36
PROVIDERS: PCP Internal Medicine; Visit Provider Advanced Practice Midwife
DX: Z20.2 Contact with and (suspected) exposure to infections with a predominantly sexual mode of transmission (principal); N89.8 Other specified noninflammatory disorders of vagina; R63.4 Abnormal weight loss; R45.89 Other symptoms and signs involving emotional state; K21.9 Gastro-esophageal reflux disease without esophagitis; R35.0 Frequency of micturition
CPT/HCPCS: 0353U; 81003; 81025; 86704; 86780; 86803; 87389; 87480; 87510; 87660; 99212

== ENCOUNTER 2023-06-03 08:53 | Outpatient (REF) | payer OTHER, SELFPAY | END 2023-06-03 08:54 | disposition home or self-care (01) | LOC: HO.LNP 08:53 | PROVIDERS: Visit Provider Advanced Practice Midwife | DX: Z13.89 Encounter for screening for other disorder (principal) ==

== ENCOUNTER 2023-06-03 09:07 | Outpatient (AMB) | payer OTHER, SELFPAY ==
[2023-06-03 09:17] VITALS: BP 96/60; PULSE 82; BMI 17.4
--- NOTE | 2023-06-03 09:17 | MHC.OFFVIS ---
Intake Vital Signs 06/03/23 09:17 Height 5 ft 6 in Weight 108 lb 0.424 oz BMI 17.4 BP 96/60 Blood Pressure Location Rt brachial Position Sitting Pulse 82 Pulse Source Pulse Oximeter Intake Visit Reasons: 6 mnth follow up Intake Note: Pt presents to the office today for a 6 month follow up. Pt states she is feeling okay .Pt denies any GI issues at this time. Allergies pomegranate [POMEGRANATE] Allergy (Mild, Verified 06/03/23 09:20) RASH Seasonal Allergies Allergy (Verified 06/03/23 09:20) Unknown HPI 6 mnth follow up HPI Details LAST VISIT: Cholelithiases Cholelithiasis without cholecystitis. Patient states that she no longer has right upper quadrant discomfort. Patient states that she changed her diet and is feeling better. GERD (gastroesophageal reflux disease) History of H pylori in the past. No H pylori seen on upper endoscopy. Mild chronic inactive inflammation. Continue low-dose omeprazole and low-dose famotidine. Avoid dietary triggers and late night snacking. Staying upright for minimum 3 hours after meals discussed with patient. I will see her in 6 months, sooner on as needed basis. Patient is agreeable to this plan and verbalizes understanding of instructions. She was given the opportunity to ask questions and all questions answered. TODAY'S VISIT Patient is here today for follow-up. Patient reports that she has been doing better takes omeprazole on as needed basis as well as famotidine. Patient reports that she however has been feeling little depressed. Patient last 10 lb in the last few months. Patient reports that occasionally she feels like she does not have appetite so she does not eat anything. Patient tried eating healthy. Patient tried protein shakes, however she feels like they get to boring. Patient denies SI or HI. Reports to be feeling safe at home. Patient lives with her children. Saw her OBGYN this morning and is being tested for possible STD. Patient denies any nausea or vomiting. Denies any fever or chills. Patient is tearful during this appointment. [facility] Medical History RUQ abdominal pain Cholelithiasis Epigastric abdominal pain Abnormal uterine bleeding (AUB) Dysfunctional uterine bleeding Well woman exam ZULEMA II (cervical intraepithelial neoplasia II) Acute vaginitis Toe fracture, left Iron deficiency anemia Ulnar neuropathy Left renal stone Vitamin B12 deficiency Dysplasia of cervix, low grade (ZULEMA 1) GERD (gastroesophageal reflux disease) Asthma Vitamin D deficiency Surgical History History of esophagogastroduodenoscopy (EGD) H/O LEEP History of tubal ligation History of wisdom tooth extraction History of tonsillectomy Family History Father CVD (cardiovascular disease) Myocardial infarction Mother Hodgkin lymphoma Colon cancer Lung cancer Brother Leukemia Colon cancer Maternal Grandmother Diabetes Social History Housing: Apartment Alcohol intake: current Alcohol intake frequency: holidays/special occasions only Patient Tobacco Use Status: Never used Tobacco e-Cigarette/Vaping Use: Never Used Second Hand Smoke Exposure: No service: No Current occupational status: disabled Gender identity: Female Cognitive needs: No Hearing needs: No Vision needs: Yes Female Reproductive History Menstrual Age of Menarche: 13 Review of Systems Const Denies weight gain and Denies weight loss ENT Reports no additional complaints, Denies dysphagia and Denies odynophagia Card Reports no additional complaints Resp Reports no additional complaints GI Denies abdominal pain, Denies belching, Denies melena, Denies bloating, Denies change in bowel habits, Denies dysphagia, Denies excessive flatus, Denies dyspepsia, Reports heartburn (Occasional), Denies diarrhea, Denies loose stools, Denies nausea, Denies odynophagia and Denies vomiting Reports no additional complaints Musc Reports no additional complaints Neuro Reports no additional complaints Psych Reports no additional complaints Endo Reports no additional complaints Physical Exam Vital Signs: Last Vital Signs Pulse 82 06/03/23 09:17 BP 96/60 06/03/23 09:17 BMI result Body Mass Index 17.4 Const General: healthy appearing, no acute distress and well developed Nutritional Appearance: well nourished Orientation/consciousness: patient oriented x3 HEENT Head: Yes normal to inspection, Yes normocephalic and Yes atraumatic Face and sinus: Yes normal facial exam Mouth: Normal oral and palatal mucosa present Throat: Yes posterior oropharynx normal, Yes tonsils normal and Yes uvula midline Eyes General: appearance normal, both eyes and all related structures Neck Neck: Yes normal visual inspection, Yes full ROM and Yes trachea midline Thyroid: Thyroid normal Resp Effort & Inspection: normal respiratory effort, able to speak in complete sentences, no tracheal deviation and symmetric chest movement Auscultation: clear to auscultation bilaterally Cardio Rate: regular rate Heart sounds: S1 normal heart sound present and S2 normal heart sound present GI Inspection: Yes normal to inspection and No distended Palpation (GI): Soft to palpation, not firm, nontender and No hepatosplenomegaly present Auscultation: normal bowel sounds General: Yes no CVA tenderness Back/Spine/Pelvis Back: no CVA tenderness Skin General skin exam: elasticity normal, turgor normal and dry skin Neuro General: patient oriented x3 Psych Appearance: grossly normal Mental Status: mental status grossly normal Results AMB Test Urine AMB Test Urine Negative Last Edit by MICHELLE Urbina on 06/03/23 09:22 AMB Urinalysis, Automated UA Leukoctes 0 Tricia/uL Last Edit by MICHELLE Urbina on 06/03/23 09:22 UA Nitrite Negative Last Edit by MICHELLE Urbina on 06/03/23 09:22 UA Urobilinogen 0 mg/dL Last Edit by MICHELLE Urbina on 06/03/23 09:22 UA Protein 0 mg/dL Last Edit by MICHELLE Urbina on 06/03/23 09:22 UA pH 6.0 Last Edit by MICHELLE Urbina on 06/03/23 09:22 UA Blood 0 Juan/uL Last Edit by MICHELLE Urbina on 06/03/23 09:22 UA Specific [place] 1.020 Last Edit by MICHELLE Urbina on 06/03/23 09:22 UA Ketone Negative Last Edit by Ena Chen MICHELLE on 06/03/23 09:22 UA Bilirubin 0 mg/dL Last Edit by Ena ChenMICHELLE on 06/03/23 09:22 UA Glucose 0 mg/dL Last Edit by Ena Chen MICHELLE on 06/03/23 09:22 Assessment & Plan Assessment & Plan (1) Weight loss: Code(s): R63.4 - Abnormal weight loss (2) Depressed affect: Code(s): R45.89 - Other symptoms and signs involving emotional state (3) GERD (gastroesophageal reflux disease): Code(s): K21.9 - Gastro-esophageal reflux disease without esophagitis Qualifiers: Esophagitis presence: without esophagitis Qualified Code(s): K21.9 - Gastro-esophageal reflux disease without esophagitis Plan Continue current management with omeprazole and famotidine. Patient will be referred to drawing in machine tender helper to help her plan meals. Patient did last weight and she reports poor appetite. Counseling referral done as well as patient has been depressed. Patient has been dealing with depression on and off for a long time. Has not seen anyone in the last couple years. Not on any psychotropic medications. Patient denies any SI or HI. Denies any anxiety. Patient states that mostly she feels down. I will see patient in 4 months, sooner on as needed basis. Patient is agreeable to this plan and verbalizes understanding of instructions. She was given the opportunity to ask questions and all questions answered. Thank you for allowing me to participate in her care Orders: Referrals Counseling Referral R45.89 - Other symptoms and signs involving emotional state Litigation Claim Representative Nutrition Referral R63.4 - Abnormal weight loss Coding Level of Care Code Est Pt Level 3 (85798) Diagnoses Weight loss R63.4 Depressed affect R45.89 Gastroesophageal reflux disease without esophagitis K21.9 Esophagitis presence: without esophagitis Time Spent (min) 30 Comment 20 minutes spent with patient and additional 10 minutes spent reviewing her records
== END 2023-06-03 09:52 | disposition home or self-care (01) ==
PROVIDERS: Visit Provider Nurse Practitioner Family
DX: R63.4 Abnormal weight loss (principal); R45.89 Other symptoms and signs involving emotional state; K21.9 Gastro-esophageal reflux disease without esophagitis
CPT/HCPCS: 99213

== ENCOUNTER 2023-06-05 10:03 | Outpatient (AMB) | payer OTHER, SELFPAY ==
--- NOTE | 2023-06-05 10:07 | A.OFFVIS_ITS ---
Intake VS Expanded 06/09/23 12:22 Height 5 ft 6 in Weight 108 lb BMI 17.4 Intake Visit Reasons: Abnormal Weight Loss Allergies pomegranate [POMEGRANATE] Allergy (Mild, Verified 06/03/23 09:20) RASH Seasonal Allergies Allergy (Verified 06/03/23 09:20) Unknown HPI Nutrition Presentation Details Pt presents for MNT for abnormal weight loss. 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 Pt reports she was referred to counseling and is awaiting an appointment Pt reports she has coffee once/day as it helps with bowel movement, makes coffee with cream powder B: cookies, coffee , juice 12-1: fries , chicken , water , cranber ry juice ,diet coke,sprite 2-3 chicken wrap or fettuccini keyur snack: chips, cookies (comfort food) denies vomiting, denies diarrhea Pt reports having hx of heavy menstrual period and is treated with tranexamic GI symptoms reports decreased appetite, early satiety and nausea Food allergies/aversions No Lifestyle Emotional Eating Reports anxiety Eating out rarely or never Focused findings Nutrition-focused findings heartburn, loss of appetite, muscle wasting, underweight and nausea PPQ-Tuebtrn-Lv.Jeor Equation Height 5 ft 6 in Weight 108 lb Resting Metabolic Rate 1223.62 Calculated Activity Level Very Heavy Activity Calories Needed to Maintain Weight 2324.88 Diagnosis Nutrition problem #1 underweight (bmi at 17.4 on 05/2023) and unintended weight loss (10-18 lbs wt loss in the past 6 months) As related to (etiology) #1 inadequate oral intake As evidenced by (sign/symptom) #1 low BMI (17.4 on 05/2023) Monitoring/Goals Monitoring/Goals details Include protein with snacks HAve nutrient dense beverages a tmeal Most Recent Diabetes Results: Creatinine 0.67 mg/dL (0.5-1.4) 05/07/23 Blood Urea Nitrogen 9 mg/dL (9-16) 05/07/23 Sodium 138 mmol/L (135-145) 05/07/23 Potassium 3.6 mmol/L (3.3-5.1) 05/07/23 Chloride 107 mmol/L (96-108) 05/07/23 Carbon Dioxide 24 mmol/L (22-29) 05/07/23 Calcium 9.0 mg/dL (8.4-10.2) 05/07/23 AST 14 U/L (5-31) 05/07/23 ALT 19 U/L (0-31) 05/07/23 Total Protein 7.0 g/dL (6.5-8.0) 05/07/23 Albumin 4.2 g/dL (3.5-5.0) 05/07/23 [facility] Medical History RUQ abdominal pain Cholelithiasis Epigastric abdominal pain Abnormal uterine bleeding (AUB) Dysfunctional uterine bleeding Well woman exam ZULEMA II (cervical intraepithelial neoplasia II) Acute vaginitis Toe fracture, left Iron deficiency anemia Ulnar neuropathy Left renal stone Vitamin B12 deficiency Dysplasia of cervix, low grade (ZULEMA 1) GERD (gastroesophageal reflux disease) Asthma Vitamin D deficiency Surgical History History of esophagogastroduodenoscopy (EGD) H/O LEEP History of tubal ligation History of wisdom tooth extraction History of tonsillectomy Family History Father CVD (cardiovascular disease) Myocardial infarction Mother Hodgkin lymphoma Colon cancer Lung cancer Brother Leukemia Colon cancer Maternal Grandmother Diabetes Social History Housing: Apartment Alcohol intake: current Alcohol intake frequency: holidays/special occasions only Patient Tobacco Use Status: Never used Tobacco e-Cigarette/Vaping Use: Never Used Second Hand Smoke Exposure: No service: No Current occupational status: disabled Gender identity: Female Cognitive needs: No Hearing needs: No Vision needs: Yes Female Reproductive History Menstrual Age of Menarche: 13 Review of Systems GI Reports early satiety and Reports nausea Assessment & Plan Assessment & Plan (1) Abnormal weight loss: Code(s): R63.4 - Abnormal weight loss Plan: Recommend : increasing calories by 500 from a combination of nutritional supplements and adding 2-3 oz of protein a day Recommend high protein ensure 2 a day to have in between meals related to undernourished with bmi at 17.4 and anemia wt 49 kg Est kcal needs : 6094-5730 seth per day (40% carb, 30% protein/fat) Est fluid needs as per 35 ml/d: 1700 Est prot per day as per 1.2 g/kg bw: 59 g/ Recommend fiber intake : 8-10 g per day and gradually increase to 25-28 g per day for women and 35-38 g for men or as tolerated Educated patient on: ( R = reviewed V = verbalizes understanding N/R = needs review N/A = not applicable * Food sources of protein and its role in anemia, muscle mass, GI function : R * Hydration with nutrient dense beverages : milk, juice, water with juice, coconut water , non diet beverages due to lack of nutrition: R * Healthy plate method concept: R Patient Instructions: Have 2 protein shakes a day ( ensure high protein ) and have in between meals with the snack Include protein with each meal or snack example cottage cheese with chip , cracker with eggs or with peanut butter see meal plan ideas with proteins source sof foods included keep a food record and bring to next follow up Coding Level of Care Code Nutr Indiv Intake (37019) Diagnoses Abnormal weight loss R63.4 Time Spent (min) 30
[2023-06-09 12:22] VITALS: BMI 17.4
== END 2023-06-05 10:46 | disposition home or self-care (01) ==
PROVIDERS: PCP Internal Medicine; Visit Provider Dietitian, Registered
DX: R63.4 Abnormal weight loss (principal)

== ENCOUNTER → 2023-06-05 10:03 | Outpatient (BNVA) | payer OTHER, SELFPAY | PROVIDERS: PCP Internal Medicine; Visit Provider Dietitian, Registered | DX: R63.4 Abnormal weight loss (principal) | CPT/HCPCS: 97802 ==

== ENCOUNTER 2023-08-06 10:20 | Outpatient (AMB) | payer OTHER, SELFPAY ==
[2023-08-06 10:30] VITALS: BMI 17.7
--- NOTE | 2023-08-06 10:30 | MHC.AMNUTRGE ---
Intake VS Expanded 08/06/23 10:30 Height 5 ft 6 in Weight 109 lb 12.643 oz BMI 17.7 Intake Visit Reasons: dm/Confirmed Allergies pomegranate [POMEGRANATE] Allergy (Mild, Verified 08/07/23 14:44) RASH Seasonal Allergies Allergy (Verified 08/07/23 14:44) Unknown HPI Nutrition Presentation Details Pt presents for MNT f/u for abnormal weight loss. Pt reports she is working on taking iron supplements in a consistent manner- has pill box as a reminder. Reports having 2 boost high protein per day , needs ideas to incorporate in meals to prevent supplement fatigue Pt reports working on having juices in place of soda ,, not in a consistent manner Most Recent Diabetes Results: No Data to Display [facility] Medical History RUQ abdominal pain Cholelithiasis Epigastric abdominal pain Abnormal uterine bleeding (AUB) Dysfunctional uterine bleeding Well woman exam ZULEMA II (cervical intraepithelial neoplasia II) Acute vaginitis Toe fracture, left Iron deficiency anemia Ulnar neuropathy Left renal stone Vitamin B12 deficiency Dysplasia of cervix, low grade (ZULEMA 1) GERD (gastroesophageal reflux disease) Asthma Vitamin D deficiency Surgical History History of esophagogastroduodenoscopy (EGD) H/O LEEP History of tubal ligation History of wisdom tooth extraction History of tonsillectomy Family History Father CVD (cardiovascular disease) Myocardial infarction Mother Hodgkin lymphoma Colon cancer Lung cancer Brother Leukemia Colon cancer Maternal Grandmother Diabetes Social History Housing: Apartment Alcohol intake: current Alcohol intake frequency: holidays/special occasions only Patient Tobacco Use Status: Never used Tobacco e-Cigarette/Vaping Use: Never Used Second Hand Smoke Exposure: No service: No Current occupational status: disabled Gender identity: Female Cognitive needs: No Hearing needs: No Vision needs: Yes Female Reproductive History Menstrual Age of Menarche: 13 Assessment & Plan Assessment & Plan (1) Abnormal weight loss: Code(s): R63.4 - Abnormal weight loss Plan: Recommend : Including meal supplements accompanied by a snack as a meal supplement not as a meal replacement. wt 49 kg Est kcal needs : 1236-6913 seth per day (40% carb, 30% protein/fat) Est fluid needs as per 35 ml/d: 1700 Est prot per day as per 1.2 g/kg bw: 59 g/ Recommend fiber intake : 8-10 g per day and gradually increase to 25-28 g per day for women and 35-38 g for men or as tolerated Educated patient on: ( R = reviewed V = verbalizes understanding N/R = needs review N/A = not applicable Food sources of protein and its role in anemia, muscle mass, GI function : R Hydration with nutrient dense beverages : milk, juice, water with juice, coconut water , no non diet beverages due to lack of nutrition: R Healthy plate method concept: R increasing meals: having 6 small meals per day , preventing going more than 4 hours without eating during the day Patient Instructions: Have 6 meals/day Have the boost with a snack (sandwich or crackers with peanut butter and boost ) Have juice or milk with meals , cutting down on diet sodas keep a food log (ideas recipes with boost) Coding Level of Care Code Nutr Indiv Subseq (84943) Diagnoses Abnormal weight loss R63.4 Time Spent (min) 30
== END 2023-08-06 11:07 | disposition home or self-care (01) ==
PROVIDERS: PCP Internal Medicine; Visit Provider Dietitian, Registered
DX: R63.4 Abnormal weight loss (principal)

== ENCOUNTER → 2023-08-06 10:20 | Outpatient (BNVA) | payer OTHER, SELFPAY | PROVIDERS: PCP Internal Medicine; Visit Provider Dietitian, Registered | DX: R63.4 Abnormal weight loss (principal); Z68.1 Body mass index [BMI] 19.9 or less, adult; Z71.3 Dietary counseling and surveillance | CPT/HCPCS: 97803 ==

== ENCOUNTER 2023-08-07 14:20 | Outpatient (AMB) | payer OTHER, SELFPAY ==
--- NOTE | 2023-08-07 14:41 | MHC.OFFVIS ---
Intake Vital Signs 08/07/23 14:44 Height 5 ft 6 in Weight 108 lb 0.424 oz BMI 17.4 Intake Visit Reasons: vaginal itch Silk Spotter Required: No Information Interpreted: non-clinical & clinical Head Animal Keeper: Head Animal Keeper Present (Puja MARTINEZ) Accompanied by: Self / Same As Patient Allergies pomegranate [POMEGRANATE] Allergy (Mild, Verified 08/07/23 14:44) RASH Seasonal Allergies Allergy (Verified 08/07/23 14:44) Unknown Is last menstrual period known: Yes Last menstrual period: 07/28/23 HPI HPI Comments History of Present Illness Details Presenting complaining of vulvovaginal irritation associated with foul odor . PFS Medical History RUQ abdominal pain Cholelithiasis Epigastric abdominal pain Abnormal uterine bleeding (AUB) Dysfunctional uterine bleeding Well woman exam ZULEMA II (cervical intraepithelial neoplasia II) Acute vaginitis Toe fracture, left Iron deficiency anemia Ulnar neuropathy Left renal stone Vitamin B12 deficiency Dysplasia of cervix, low grade (ZULEMA 1) GERD (gastroesophageal reflux disease) Asthma Vitamin D deficiency Surgical History History of esophagogastroduodenoscopy (EGD) H/O LEEP History of tubal ligation History of wisdom tooth extraction History of tonsillectomy Family History Father CVD (cardiovascular disease) Myocardial infarction Mother Hodgkin lymphoma Colon cancer Lung cancer Brother Leukemia Colon cancer Maternal Grandmother Diabetes Social History Housing: Apartment Alcohol intake: current Alcohol intake frequency: holidays/special occasions only Patient Tobacco Use Status: Never used Tobacco e-Cigarette/Vaping Use: Never Used Second Hand Smoke Exposure: No service: No Current occupational status: disabled Gender identity: Female Cognitive needs: No Hearing needs: No Vision needs: Yes Female Reproductive History Menstrual Age of Menarche: 13 Date of last menstrual period: 07/28/23 Review of Systems Const All systems reviewed & are unremarkable except as noted in HPI and below Physical Exam Vital Signs: BMI result Body Mass Index 17.4 General: Yes no CVA tenderness External Female Exam: normal external appearance and normal appearance of the urethra Speculum Exam - Vagina: normal appearance of the vagina, normal palpation, no lesions and no masses Speculum Exam - Cervix: normal appearance of the cervix, normal palpation, no lesions, no masses and nontender Bimanual exam- vagina & uterus: normal bimanual exam, normal palpation, uterine size normal, normal palpation, uterine shape normal, No Cervical tenderness present and non-tender Bimanual Exam- Adnexa, other: normal adnexae Back/Spine/Pelvis Back: no CVA tenderness Assessment & Plan Assessment & Plan (1) Vulvovaginitis: Comment: Mixed VVC with BV Code(s): N76.0 - Acute vaginitis Plan: GC and chlamydia cultures with BV panel taken. Terazol 0.8% q.h.s. for 3 days sent to patient's pharmacy in addition Per CDC recommendation, will screen for STI, HepBs Ag, HIV, RPR, Hep C Ab ordered. Will treat with Flagyl 500 mg p.o. b.i.d. x 7 days, Instructions given to the patient to refrain from sexual activity or to use condoms consistently and correctly during the BV treatment regimen, not to douch, it might increase the risk for relapse, and to call if symptoms persist or recur. Orders: Orders Hepatitis C Antibody Today B96.89 - Other specified bacterial agents as the cause of diseases classified elsewhere, N76.0 - Acute vaginitis Hepatitis B Surface Antigen Today B96.89 - Other specified bacterial agents as the cause of diseases classified elsewhere, N76.0 - Acute vaginitis CT NG by PCR Today N76.0 - Acute vaginitis Bacterial Vaginosis Panel Today N76.0 - Acute vaginitis HIV Ab/Ag Today B96.89 - Other specified bacterial agents as the cause of diseases classified elsewhere, N76.0 - Acute vaginitis Syphilis Screen Today B96.89 - Other specified bacterial agents as the cause of diseases classified elsewhere, N76.0 - Acute vaginitis Medications: New terconazole 0.8% 1 appful vaginal BEDTIME 3 days 20 grams 0RF metronidazole 500 mg PO BID 7 days 14 tabs 0RF Coding Level of Care Code Est Pt Level 3 (75333) Diagnoses Vulvovaginitis N76.0
[2023-08-07 14:44] VITALS: BMI 17.4
== END 2023-08-07 14:59 | disposition home or self-care (01) ==
LOC: HO.HWS 14:20
PROVIDERS: PCP Internal Medicine; Visit Provider Obstetrics & Gynecology
DX: N76.0 Acute vaginitis (principal)
CPT/HCPCS: 99213

== ENCOUNTER 2023-08-07 14:20 | Outpatient (REF) | payer OTHER, SELFPAY ==
[2023-08-08 03:47] LABS: CT PCR NOT DETECTED (Not Detect.); NG PCR NOT DETECTED (Not Detect.)
[2023-08-08 15:17] LABS: BV Int Neg Control Negative (Negative); BV Int Pos Control Positive (Positive)
== END 2023-08-07 14:21 | disposition home or self-care (01) ==
LOC: HO.LNP 14:20
PROVIDERS: PCP Internal Medicine; Visit Provider Obstetrics & Gynecology
DX: N76.0 Acute vaginitis (principal); B96.89 Other specified bacterial agents as the cause of diseases classified elsewhere
CPT/HCPCS: 0353U; 87480; 87510; 87660; 99212

== ENCOUNTER 2023-08-26 09:01 | Outpatient (REF) | payer OTHER, SELFPAY ==
[2023-08-26 11:32] LABS: Syphilis Screen Nonreactive (Nonreactive)
[2023-08-26 11:34] LABS: HBsAGNum1 0.39 S/CO (0.00-0.99); HIV AB/AG Nonreactive (Nonreactive); HIV Num 1 0.05 S/CO (0.00-0.99); Hepatitis B Surface Antigen Negative (Negative); ~Hepatitis C Antibody Nonreactive (Nonreactive)
== END 2023-08-26 09:02 | disposition home or self-care (01) ==
LOC: HO.LAB 09:01
PROVIDERS: PCP Internal Medicine; Visit Provider Obstetrics & Gynecology
DX: Z11.4 Encounter for screening for human immunodeficiency virus [HIV] (principal); N76.0 Acute vaginitis; B96.89 Other specified bacterial agents as the cause of diseases classified elsewhere
CPT/HCPCS: 36415; 86780; 86803; 87340; 87389

== ENCOUNTER 2023-09-01 08:31 | Outpatient (REF) | payer OTHER, SELFPAY ==
[2023-09-01 11:40] LABS: Influenza A PCR NEGATIVE (Negative); Influenza B PCR NEGATIVE (Negative); Resp Syncy Virus RNA Qual PCR NEGATIVE (Negative); SARS COV2 PCR INHOUSE POSITIVE (Negative)
== END 2023-09-01 08:32 | disposition home or self-care (01) ==
LOC: HO.LAB 08:31
PROVIDERS: Absent Provider Internal Medicine; PCP Internal Medicine; Visit Provider Nurse Practitioner Family
DX: R05.9 Cough, unspecified (principal); Z11.52 Encounter for screening for COVID-19; R63.4 Abnormal weight loss; Z68.1 Body mass index [BMI] 19.9 or less, adult; Z20.828 Contact with and (suspected) exposure to other viral communicable diseases; Z71.3 Dietary counseling and surveillance
CPT/HCPCS: 0241U; 97803; 99212

== ENCOUNTER 2023-09-01 08:31 | Outpatient (AMB) | payer OTHER, SELFPAY ==
--- NOTE | 2023-09-01 08:44 | A.OFFVIS_ITS ---
Intake Vital Signs 09/01/23 08:46 Height 5 ft 6 in Weight 109 lb 4 oz BMI 17.6 BP 104/57 L Blood Pressure Location Lt brachial Position Sitting Pulse 99 Intake Visit Reasons: 3 month follow up Intake Note: Patient cc: fatigue and dizziness, poor appetite, and diarrhea on an doff. Fiberglass Quality Technician Required: No Accompanied by: Self / Same As Patient Allergies pomegranate [POMEGRANATE] Allergy (Mild, Verified 09/01/23 08:43) RASH Seasonal Allergies Allergy (Verified 09/01/23 08:43) Unknown HPI 3 month follow up HPI Details LAST VISIT: Weight loss Depressed affect GERD (gastroesophageal reflux disease) Plan Continue current management with omeprazole and famotidine. Patient will be referred to nailing machine operator automatic to help her plan meals. Patient did last weight and she reports poor appetite. Counseling referral done as well as patient has been depressed. Patient has been dealing with depression on and off for a long time. Has not seen anyone in the last couple years. Not on any psychotropic medications. Patient denies any SI or HI. Denies any anxiety. Patient states that mostly she feels down. I will see patient in 4 months, sooner on as needed basis. Patient is agreeable to this plan and verbalizes understanding of instructions. She was given the opportunity to ask questions and all questions answered. ? Thank you for allowing me to participate in her care Orders Referrals Counseling Referral R45.89 Rat Poisoner Nutrition Referral R63.4 TODAY'S VISIT: Patient is here today for follow-up. Patient reports that she has been seen by nailing machine operator automatic who helps her plan her meals. Patient is trying to drink protein shakes, however feels that this is very boring. Patient reports that she is feeling sick today flu-like symptoms with body aches and fever. Patient reports that her daughter and her son were sick week ago. Patient continues to have poor appetite and no desire of eating. Patient reports that she is seeing her therapist couple times a week. Patient is not taking any PPI or any H2 shashi. Reports dyspepsia without dysphagia or odynophagia. Patient denies any melena, hematochezia, unintentional weight loss or ribbon like stools. Patient denies any abdominal pain or discomfort. Reports occasional postprandial loose stools depending on what she eats. [facility] Medical History RUQ abdominal pain Cholelithiasis Epigastric abdominal pain Abnormal uterine bleeding (AUB) Dysfunctional uterine bleeding Well woman exam ZULEMA II (cervical intraepithelial neoplasia II) Acute vaginitis Toe fracture, left Iron deficiency anemia Ulnar neuropathy Left renal stone Vitamin B12 deficiency Dysplasia of cervix, low grade (ZULEMA 1) GERD (gastroesophageal reflux disease) Asthma Vitamin D deficiency Surgical History History of esophagogastroduodenoscopy (EGD) H/O LEEP History of tubal ligation History of wisdom tooth extraction History of tonsillectomy Family History Father CVD (cardiovascular disease) Myocardial infarction Mother Hodgkin lymphoma Colon cancer Lung cancer Brother Leukemia Colon cancer Maternal Grandmother Diabetes Social History Housing: Apartment Alcohol intake: current Alcohol intake frequency: holidays/special occasions only Patient Tobacco Use Status: Never used Tobacco e-Cigarette/Vaping Use: Never Used Second Hand Smoke Exposure: No service: No Current occupational status: disabled Gender identity: Female Cognitive needs: No Hearing needs: No Vision needs: Yes Female Reproductive History Menstrual Age of Menarche: 13 Review of Systems Const Denies weight gain and Denies weight loss ENT Reports no additional complaints, Denies dysphagia and Denies odynophagia Card Reports no additional complaints Resp Reports no additional complaints GI Denies abdominal pain, Denies belching, Denies melena, Denies bloating, Denies change in bowel habits, Denies dysphagia, Denies excessive flatus, Denies dyspepsia, Denies heartburn, Denies diarrhea, Denies loose stools, Reports nausea, Denies odynophagia and Denies vomiting Reports no additional complaints Musc Reports no additional complaints Neuro Reports no additional complaints Psych Reports no additional complaints Endo Reports no additional complaints Physical Exam Vital Signs: Last Vital Signs Pulse 99 09/01/23 08:46 BP 104/57 L 09/01/23 08:46 BMI result Body Mass Index 17.6 Const General: healthy appearing, no acute distress and well developed Nutritional Appearance: underweight Orientation/consciousness: patient oriented x3 Resp Effort & Inspection: normal respiratory effort, able to speak in complete sentences, no tracheal deviation and symmetric chest movement Auscultation: clear to auscultation bilaterally Cardio Rate: regular rate GI Inspection: Yes normal to inspection and No distended Palpation (GI): Soft to palpation, not firm, nontender and No hepatosplenomegaly present Auscultation: normal bowel sounds General: Yes no CVA tenderness Back/Spine/Pelvis Back: no CVA tenderness Skin General skin exam: elasticity normal, turgor normal and dry skin Neuro General: patient oriented x3 Psych Appearance: grossly normal Mental Status: mental status grossly normal Assessment & Plan Assessment & Plan (1) GERD (gastroesophageal reflux disease): Code(s): K21.9 - Gastro-esophageal reflux disease without esophagitis Qualifiers: Esophagitis presence: without esophagitis Qualified Code(s): K21.9 - Gastro-esophageal reflux disease without esophagitis (2) Weight loss: Code(s): R63.4 - Abnormal weight loss (3) Depressed affect: Code(s): R45.89 - Other symptoms and signs involving emotional state Plan Patient will start taking omeprazole again for dyspepsia. Patient can take famotidine at bedtime. Patient was encouraged to eat small meals and more often. Patient denies SI or HI, depressed affect continues. She is seeing nailing machine operator automatic. Has an appointment with her today. Patient reports occasional nausea without vomiting. Patient will continue drinking protein shakes. Continue following up with her therapist. Long discussion with patient about nutrition and trying to eat more often. Patient will follow-up in our office in 3 weeks, sooner on as needed basis. She is agreeable to this plan and verbalizes understanding of instructions. She was given the opportunity to ask questions all questions answered. Thank you for allowing me to participate in her care Medications: Refilled famotidine 20 mg PO BEDTIME 90 tabs 1RF K21.9 - Gastro-esophageal reflux disease without esophagitis omeprazole 20 mg PO DAILY 90 caps 1RF K21.9 - Gastro-esophageal reflux disease without esophagitis Coding Level of Care Code Est Pt Level 4 (04005) Diagnoses Gastroesophageal reflux disease without esophagitis K21.9 Esophagitis presence: without esophagitis Weight loss R63.4 Depressed affect R45.89 Time Spent (min) 35 Comment 25 minutes spent with patient and additional 10 minutes spent reviewing her records
[2023-09-01 08:46] VITALS: BP 104/57; PULSE 99; BMI 17.6
== END 2023-09-01 09:06 | disposition home or self-care (01) ==
PROVIDERS: PCP Internal Medicine; Visit Provider Nurse Practitioner Family
DX: K21.9 Gastro-esophageal reflux disease without esophagitis (principal); R63.4 Abnormal weight loss; R45.89 Other symptoms and signs involving emotional state
CPT/HCPCS: 99214

== ENCOUNTER 2023-09-01 09:32 | Outpatient (AMB) | payer OTHER, SELFPAY ==
--- NOTE | 2023-09-01 09:32 | A.OFFPC_ITS ---
Vital Signs 09/01/23 09:33 Height 5 ft 6 in Weight 110 lb 0.2 oz BMI 17.8 BP 92/66 Blood Pressure Location Lt brachial Position Sitting Pulse 93 Pulse Source Pulse Oximeter Pulse Oximetry (%) 100 Oxygen Delivery Method Room Air Intake Visit Reasons: l renal calculi, cholelithiasis Tooth Polisher Required: No Allergies pomegranate [POMEGRANATE] Allergy (Mild, Verified 09/01/23 09:33) RASH Seasonal Allergies Allergy (Verified 09/01/23 09:33) Unknown Medication List - Last Reconciled 09/01/23 by Viridiana Garcia MD ascorbic acid (vitamin C) 500 mg PO .QD 90 days biotin 1 mg PO DAILY [BOOST HIGH PROTEIN As directed] [BOOST to take BID weight loss , 10 lbs in the past 6 month, BMI at 17.4 on 05/2023 and Anemia] calcium carbonate 500 mg PO DAILY famotidine 20 mg PO BEDTIME ferrous sulfate (Feosol) 325 mg PO DAILY 90 days fexofenadine (Elyssa Allergy) 180 mg PO DAILY folic acid 1 mg PO DAILY metronidazole 500 mg PO BID 7 days multivitamin 1 tab PO DAILY omega-3 fatty acids (Fish Oil Concentrate) 1,000 mg PO DAILY omeprazole 20 mg PO DAILY paroxetine HCl 10 mg PO .QHS terconazole 0.8% 1 appful vaginal BEDTIME 3 days tranexamic acid 1,300 mg (2 x 650 mg) PO TID Tobacco use date assessed: 09/01/23 Dental Screening Dental Screen Date: 09/24/23 HPI l renal calculi, cholelithiasis HPI Details 33-year-old underweight female with a hi story of generalized anxiety disorder GERD left renal calculi and anemia coming in for follow-up. Last seen in April 2023 patient is here for follow-up. Review of the notes patient was just seen by the field captain. Patient was referred to the sales and marketing professional for poor appetite and weight expresses depression. Patient had an ultrasound done showing cholelithiasis. In April patient was seen by the Orthopedics due to a dorsal wrist ganglion on the right hand. chills, nasal congestion, children sick - [facility] Medical History RUQ abdominal pain Cholelithiasis Epigastric abdominal pain Abnormal uterine bleeding (AUB) Dysfunctional uterine bleeding Well woman exam ZULEMA II (cervical intraepithelial neoplasia II) Acute vaginitis Toe fracture, left Iron deficiency anemia Ulnar neuropathy Left renal stone Vitamin B12 deficiency Dysplasia of cervix, low grade (ZULEMA 1) GERD (gastroesophageal reflux disease) Asthma Vitamin D deficiency Surgical History History of esophagogastroduodenoscopy (EGD) H/O LEEP History of tubal ligation History of wisdom tooth extraction History of tonsillectomy Family History Father CVD (cardiovascular disease) Myocardial infarction Mother Hodgkin lymphoma Colon cancer Lung cancer Brother Leukemia Colon cancer Maternal Grandmother Diabetes Social History Housing: Apartment Alcohol intake: current Alcohol intake frequency: holidays/special occasions only Patient Tobacco Use Status: Never used Tobacco e-Cigarette/Vaping Use: Never Used Second Hand Smoke Exposure: No service: No Current occupational status: disabled Gender identity: Female Cognitive needs: No Hearing needs: No Vision needs: Yes Female Reproductive History Menstrual Age of Menarche: 13 Questionnaire Thrive Questionnaire Date Thrive assessed: 09/01/23 I am a: Patient What is your living situation today?: I have a steady place to live Within the past 12 months, did the food you bought not last and you didn't have the money to get more?: Never true Within the past 12 months, did you worry whether your food would run out before you got money to buy more?: Never true Do you have trouble paying for medicines?: No Do you have trouble getting transportation to medical appointments?: No Do you have trouble paying your heating and electricity bill?: No Do you have trouble taking care of your child, family member or friend?: No Do you have trouble with day-to-day activities such as bathing, preparing meals, shopping, managing finances, etc.?: No Are you currently unemployed and looking for a job?: No Are you interested in more education?: No Please select the resources that you would like help with: None THRIVE Score: 0 AUDIT C Alcohol Use Questionnaire (AUDIT-C) 1. How often do you have a drink containing alcohol?: Never 3. How often do you have six or more drinks on one occasion?: Never Total Score: 0 ERIK-7 AMB Questionnaire ERIK-7 Date ERIK - 7 assessed: 09/01/23 Source: Developed by Drs. Sudeep Mckeon, Aura Bradley, Jatin Quiles and colleagues, with an educational binta from [employer]. Physical exam (Primary Care) Vital Signs: Last Vital Signs Pulse 93 09/01/23 09:33 BP 92/66 09/01/23 09:33 Pulse Ox 100 09/01/23 09:33 Oxygen Delivery Method Room Air 09/01/23 09:33 BMI result Body Mass Index 17.8 Tobacco/Smoking Status: Tobacco use Status Tobacco use date assessed 09/01/23 09/01/23 09:38 Patient Tobacco Use Status Never used Tobacco 09/01/23 09:38 e-Cigarette/Vaping Use Never Used 09/01/23 09:38 Thrive Assessment: Date of Thrive Assessment Date Thrive assessed 09/01/23 09/01/23 09:38 Const General: alert; No acute distress Eyes Conjunctivae: conjunctivae normal Resp Auscultation: clear to auscultation bilaterally Cardio Rate: regular rate Rhythm: regular rhythm GI Inspection: Yes normal to inspection Extrem General: Yes normal to inspection and No edema Assessment and Plan Assessment & Plan (1) Abnormal weight loss: Code(s): R63.4 - Abnormal weight loss Plan: Patient has been seeing the sales and marketing professional (2) Cholelithiases: Comment: 03/2022, 05/2023 Code(s): K80.20 - Calculus of gallbladder without cholecystitis without obstruction Qualifiers: Cholelithiasis location: gallbladder Cholecystitis presence: without cholecystitis Biliary obstruction: without biliary obstruction Qualified Code(s): K80.20 - Calculus of gallbladder without cholecystitis without obstruction Plan: Low-fat diet (3) GERD (gastroesophageal reflux disease): Code(s): K21.9 - Gastro-esophageal reflux disease without esophagitis Qualifiers: Esophagitis presence: without esophagitis Qualified Code(s): K21.9 - Gastro-esophageal reflux disease without esophagitis Plan: Avoid the foods that causes that usually spicy foods, tomato products, juices, coffee, soda and foods that your sensitive to. After eating do not lie down, allow 3-4 hours before in lie down. And keep the head of bed above 30 degrees to avoid the acid from going up. Seen by Gastroenterology (4) Generalized anxiety disorder: Comment: Insurance provided counseling(08/2023) every 2 weeks Code(s): F41.1 - Generalized anxiety disorder Plan: Patient has been referred for counseling. Advised to start on medication to take at nighttime. Discussed that this causes drowsiness. (5) Cough: Code(s): R05.9 - Cough, unspecified Plan: Testing requested (6) Nasal congestion: Code(s): R09.81 - Nasal congestion Plan: Nasal spray sent in to help with the congestion. Increase oral fluids rest and will test for flu as daughter had flu Orders: Orders SARS-CoV2/FLU/RSV Today R05.9 - Cough, unspecified Medications: New paroxetine HCl 10 mg PO .QHS 30 tabs 3RF F41.1 - Generalized anxiety disorder fluticasone propionate 50 mcg/actuation (Flonase Allergy Relief) administer into each nostril 2 sprays intranasal DAILY 16 grams 2RF R05.9 - Cough, unspecified Coding Level of Care Code Est Pt Level 4 (57414) Diagnoses Abnormal weight loss R63.4 Calculus of gallbladder without cholecystitis without obstruction K80.20 Cholelithiasis location: gallbladder Cholecystitis presence: without cholecystitis Biliary obstruction: without biliary obstruction Gastroesophageal reflux disease without esophagitis K21.9 Esophagitis presence: without esophagitis Generalized anxiety disorder F41.1 Cough R05.9 Nasal congestion R09.81
[2023-09-01 09:33] VITALS: BP 92/66; PULSE 93; O2SAT 100; BMI 17.8
== END 2023-09-01 10:13 | disposition home or self-care (01) ==
PROVIDERS: PCP Internal Medicine; Visit Provider Internal Medicine
DX: R63.4 Abnormal weight loss (principal); K80.20 Calculus of gallbladder without cholecystitis without obstruction; K21.9 Gastro-esophageal reflux disease without esophagitis; F41.1 Generalized anxiety disorder; R05.9 Cough, unspecified; R09.81 Nasal congestion
CPT/HCPCS: 99214

== ENCOUNTER 2023-09-01 10:46 | Outpatient (AMB) | payer OTHER, SELFPAY ==
[2023-09-01 10:50] VITALS: BMI 17.7
--- NOTE | 2023-09-01 10:50 | MHC.AMNUTRGE ---
Intake VS Expanded 09/01/23 10:50 Height 5 ft 6 in Weight 109 lb 9.116 oz BMI 17.7 Intake Visit Reasons: underweight/CONFIRMED Allergies pomegranate [POMEGRANATE] Allergy (Mild, Verified 09/01/23 09:33) RASH Seasonal Allergies Allergy (Verified 09/01/23 09:33) Unknown HPI Nutrition Presentation Details Pt presents for MNT f/u for abnormal weight loss. Pt was referred by MELONIE Banda from line installer repairer Pt reports having nutritional supplements once a day . Pt reports having received ideas mailed, with information on incorporating supplements in the meals and recipes (making hot cereals, shakes , pancakes and more) Pt reports starting mental health counseling with counselor from [facility]. diarrhea- denies constipation-denies vomiting- denies etoh- weekends > 3 serving/d 24 hr food recall (reports choosing the foods and consuming 50 % of the meal) 9 am - cheerios with ensure 12-2 pm : fast food meal (burger/fries ,diet soda) 4-5 pm [place] food rice/ribs, diet Pt hx: Pt reports she was 118 lbs in 11/2022 and has continued to gradually loose weight, weight at 108 lbs in 06/03/2023 (at GI's office) today's wt at 109lbs 9.11 oz (08/2023) Most Recent Diabetes Results: No Data to Display [facility] Medical History RUQ abdominal pain Cholelithiasis Epigastric abdominal pain Abnormal uterine bleeding (AUB) Dysfunctional uterine bleeding Well woman exam ZULEMA II (cervical intraepithelial neoplasia II) Acute vaginitis Toe fracture, left Iron deficiency anemia Ulnar neuropathy Left renal stone Vitamin B12 deficiency Dysplasia of cervix, low grade (ZULEMA 1) GERD (gastroesophageal reflux disease) Asthma Vitamin D deficiency Surgical History History of esophagogastroduodenoscopy (EGD) H/O LEEP History of tubal ligation History of wisdom tooth extraction History of tonsillectomy Family History Father CVD (cardiovascular disease) Myocardial infarction Mother Hodgkin lymphoma Colon cancer Lung cancer Brother Leukemia Colon cancer Maternal Grandmother Diabetes Social History Housing: Apartment Alcohol intake: current Alcohol intake frequency: holidays/special occasions only Patient Tobacco Use Status: Never used Tobacco e-Cigarette/Vaping Use: Never Used Second Hand Smoke Exposure: No service: No Current occupational status: disabled Gender identity: Female Cognitive needs: No Hearing needs: No Vision needs: Yes Female Reproductive History Menstrual Age of Menarche: 13 Assessment & Plan Assessment & Plan (1) Abnormal weight loss: Code(s): R63.4 - Abnormal weight loss Plan: Recommend : Having nutrient dense beverages, working on meal routine, not skipping meals wt 49 kg, (49.9 on 08/2023) Est kcal needs : 2559-5422 seth per day + 500 to continue promoting weight gain (40% carb, 30% protein/fat) Est fluid needs as per 35 ml/d: 1700 Est prot per day as per 1.2 g/kg bw: 59 g/ Recommend fiber intake : 8-10 g per day and gradually increase to 25-28 g per day for women and 35-38 g for men or as tolerated Educated patient on: ( R = reviewed V = verbalizes understanding N/R = needs review N/A = not applicable Food sources of protein and its role in anemia, muscle mass, GI function : R Hydration with nutrient dense beverages : milk, juice, water with juice, coconut water , no non diet beverages due to lack of nutrition: R Healthy plate method concept: R increasing meals: having 6 small meals per day , preventing going more than 4 hours without eating during the day relationship of alcohol and appetite, reinforce reduction and choosing nutrient dense beverages: R Patient Instructions: Choose nutrient dense beverages - juices, milk with flavor, lemonades vitamin fortified Add fruits or dried fruits to your cereal Choose foods with vitamin D : milk, icecream, sardines, oils work on having 6 small meals per day, not skipping meals in a routine basis Coding Level of Care Code Nutr Indiv Subseq (21486) Diagnoses Abnormal weight loss R63.4 Time Spent (min) 20
== END 2023-09-01 11:44 | disposition home or self-care (01) ==
PROVIDERS: PCP Internal Medicine; Visit Provider Dietitian, Registered
DX: R63.4 Abnormal weight loss (principal)

== ENCOUNTER 2023-09-22 10:06 | Outpatient (AMB) | payer OTHER, SELFPAY ==
--- NOTE | 2023-09-22 10:10 | A.OFFVIS_ITS ---
Intake Vital Signs 09/22/23 10:11 Height 5 ft 6 in Weight 110 lb 10.753 oz BMI 17.9 BP 99/56 L Blood Pressure Location Lt brachial Position Sitting Pulse 80 Intake Visit Reasons: 3 week follow up Intake Note: Patient presents to in office visit today in 3 weeks follow up of GERD. CC: Patient states she is doing a little bit better but sates she still stressed. Allergies pomegranate [POMEGRANATE] Allergy (Mild, Verified 09/22/23 10:17) RASH No Known Drug Allergies Allergy (Unknown, Verified 09/22/23 10:17) none Seasonal Allergies Allergy (Verified 09/22/23 10:17) Unknown HPI 3 week follow up HPI Details LAST VISIT GERD (gastroesophageal reflux disease) Weight loss Depressed affect Plan Patient will start taking omeprazole again for dyspepsia. Patient can take famotidine at bedtime. Patient was encouraged to eat small meals and more often. Patient denies SI or HI, depressed affect continues. She is seeing delimber operator. Has an appointment with her today. Patient reports occasional nausea without vomiting. Patient will continue drinking protein shakes. Continue following up with her therapist. Long discussion with patient about nutrition and trying to eat more often. Patient will follow-up in our office in 3 weeks, sooner on as needed basis. She is agreeable to this plan and verbalizes understanding of instructions. She was given the opportunity to ask questions all questions answered. ? Thank you for allowing me to participate in her care Medications Refilled famotidine 20 mg PO BEDTIME 90 tabs 1RF K21.9 omeprazole 20 mg PO DAILY 90 caps 1RF K21.9 TODAY'S VISIT Patient is here today for follow-up. Last time patient was here she was diagnosed with COVID right after the visit. Patient states that since then she has been feeling much better. Patient is taking famotidine at bedtime and omeprazole in the morning and her symptoms of acid reflux are suppressed. Patient reports occasional dyspepsia depending on what she eats. Patient tries to drink protein shakes, however she feels sometimes tired of drinking them all the time so she tries to eat. Patient has not lost any more weight since last visit. Patient actually reports to have a better appetite. She continues to be stressed. Patient is stressed out about bills any money. Patient denies any melena, hematochezia, unintentional weight loss or ribbon like stools. Patient denies any other GI concerning symptoms. [facility] Medical History RUQ abdominal pain Cholelithiasis Epigastric abdominal pain Abnormal uterine bleeding (AUB) Dysfunctional uterine bleeding Well woman exam ZLUEMA II (cervical intraepithelial neoplasia II) Acute vaginitis Toe fracture, left Iron deficiency anemia Ulnar neuropathy Left renal stone Vitamin B12 deficiency Dysplasia of cervix, low grade (ZULEMA 1) GERD (gastroesophageal reflux disease) Asthma Vitamin D deficiency Surgical History History of esophagogastroduodenoscopy (EGD) H/O LEEP History of tubal ligation History of wisdom tooth extraction History of tonsillectomy Family History Father CVD (cardiovascular disease) Myocardial infarction Mother Hodgkin lymphoma Colon cancer Lung cancer Brother Leukemia Colon cancer Maternal Grandmother Diabetes Social History Housing: Apartment Alcohol intake: current Alcohol intake frequency: holidays/special occasions only Patient Tobacco Use Status: Never used Tobacco e-Cigarette/Vaping Use: Never Used Second Hand Smoke Exposure: No service: No Current occupational status: disabled Gender identity: Female Cognitive needs: No Hearing needs: No Vision needs: Yes Female Reproductive History Menstrual Age of Menarche: 13 Review of Systems Const Denies weight gain and Denies weight loss ENT Reports no additional complaints, Denies dysphagia and Denies odynophagia Card Reports no additional complaints Resp Reports no additional complaints GI Denies abdominal pain, Denies belching, Denies melena, Denies bloating, Denies change in bowel habits, Denies dysphagia, Denies excessive flatus, Reports dyspepsia (Occasional), Denies heartburn, Denies diarrhea, Denies loose stools, Denies nausea, Denies odynophagia and Denies vomiting Reports no additional complaints Musc Reports no additional complaints Neuro Reports no additional complaints Psych Reports no additional complaints Endo Reports no additional complaints Physical Exam Vital Signs: Last Vital Signs Pulse 80 09/22/23 10:11 BP 99/56 L 09/22/23 10:11 BMI result Body Mass Index 17.9 Const General: healthy appearing, no acute distress and well developed Nutritional Appearance: well nourished Orientation/consciousness: patient oriented x3 Resp Effort & Inspection: normal respiratory effort, able to speak in complete sentences, no tracheal deviation and symmetric chest movement Auscultation: clear to auscultation bilaterally Cardio Rate: regular rate GI Inspection: Yes normal to inspection and No distended Palpation (GI): Soft to palpation, not firm, nontender and No hepatosplenomegaly present Auscultation: normal bowel sounds General: Yes no CVA tenderness Back/Spine/Pelvis Back: no CVA tenderness Skin General skin exam: elasticity normal, turgor normal and dry skin Neuro General: patient oriented x3 Psych Appearance: grossly normal Mental Status: mental status grossly normal Assessment & Plan Assessment & Plan (1) GERD (gastroesophageal reflux disease): Code(s): K21.9 - Gastro-esophageal reflux disease without esophagitis Qualifiers: Esophagitis presence: without esophagitis Qualified Code(s): K21.9 - Gastro-esophageal reflux disease without esophagitis (2) Weight loss: Code(s): R63.4 - Abnormal weight loss (3) Depressed affect: Code(s): R45.89 - Other symptoms and signs involving emotional state Plan Patient continues to see delimber operator. Discussed with patient trying to avoid stress. Continue to take omeprazole in the morning and famotidine at bedtime. Patient will eat more often and smaller meals. Continue avoiding dietary triggers in late night snacking. Staying upright for minimum 3 hours after meals discussed with patient. Patient will follow-up in 2 months, sooner on as needed basis. She is agreeable to this plan and verbalizes understanding of instructions. She was given the opportunity to ask questions and all questions answered. Thank you for allowing me to participate in her care Medications: New famotidine (Pepcid) 20 mg PO BEDTIME 30 tabs 3RF K21.9 - Gastro-esophageal reflux disease without esophagitis Coding Level of Care Code Est Pt Level 3 (49350) Diagnoses Gastroesophageal reflux disease without esophagitis K21.9 Esophagitis presence: without esophagitis Weight loss R63.4 Depressed affect R45.89 Time Spent (min) 25 Comment 20 minutes spent with patient and additional 10 minutes spent reviewing her records
[2023-09-22 10:11] VITALS: BP 99/56; PULSE 80; BMI 17.9
== END 2023-09-22 10:36 | disposition home or self-care (01) ==
PROVIDERS: PCP Internal Medicine; Visit Provider Nurse Practitioner Family
DX: K21.9 Gastro-esophageal reflux disease without esophagitis (principal); R63.4 Abnormal weight loss; R45.89 Other symptoms and signs involving emotional state
CPT/HCPCS: 99213

== ENCOUNTER → 2023-09-22 10:06 | Outpatient (BNVA) | payer OTHER, SELFPAY | PROVIDERS: PCP Internal Medicine; Visit Provider Nurse Practitioner Family | DX: K21.9 Gastro-esophageal reflux disease without esophagitis (principal); R45.89 Other symptoms and signs involving emotional state; R63.4 Abnormal weight loss | CPT/HCPCS: 99212 ==

== ENCOUNTER 2023-10-04 03:27 | Emergency (ER) | payer OTHER, SELFPAY ==
[2023-10-04] VITALS (7 sets, daily range): BP systolic 91–106; BP diastolic 49–66; PULSE 76–96; RESP 12–18; TEMP 36.4–37.1; O2SAT 98–100; BMI 18.4
--- NOTE | ~2023-10-04 | US_ITS ---
EXAMINATION: US ABDOMEN LIMITED CLINICAL INFORMATION: Right upper quadrant/epigastric abdominal pain.. COMPARISON: Ultrasound of the abdomen dated 05/29/2023 and 03/20/2022. TECHNIQUE: Real-time imaging of the right upper quadrant abdominal viscera. FINDINGS: PANCREAS: Normal. LIVER: Normal. The liver is normal in size. The liver contour is normal. Parenchymal echogenicity is normal. No focal hepatic lesion. There is no intrahepatic biliary duct dilatation seen. GALLBLADDER: Single echogenic shadowing gallstone is seen within the gallbladder. The gallbladder is partially decompressed. No definite sludge, polyps, wall thickening or pericholecystic fluid. There is a positive sonographic Marin sign is elicited while scanning over the gallbladder. COMMON BILE DUCT: Normal in caliber measuring 0.2 cm in diameter. RIGHT KIDNEY: Normal. No hydronephrosis. No renal calculi or focal parenchymal lesions. The kidney measures 9.5 cm in maximum dimension. FREE FLUID: None. US/US abdomen limited IMPRESSION: Cholelithiasis. Gallbladder otherwise unremarkable. However, given the positive sonographic Marin sign, acute cholecystitis cannot be excluded. Clinical correlation requested. Depending on clinical circumstances, further assessment with HIDA scan could be performed to assess for cystic duct patency.
--- NOTE | ~2023-10-04 | NM_ITS ---
EXAMINATION: BILIARY TRACT IMAGING STUDY WITH CCK CLINICAL INFORMATION: Epigastric abdominal pain, abnormal abdominal ultrasound. COMPARISON: Abdominal ultrasound 10/04/2023. TECHNIQUE: Serial gamma scintillation camera images were obtained over the abdomen for a total observation period of 60 minutes following the intravenous administration of 5 mCi Tc-99m mebrofenin. FINDINGS: There is good concentration of activity in the liver by 5 minutes post injection. Biliary activity is visualized by 6-8 minutes. The gallbladder is well visualized by 8-10 minutes. Small bowel is well visualized by 30 minutes. At 60 minutes post radiopharmaceutical injection, a 30-minute infusion of 1 micrograms Sincalide was then begun and an additional 30 minutes of images were obtained. There is good emptying of the gallbladder. By the end of the study there is good clearance of activity from the liver and visualization of diffuse small bowel activity. The calculated gallbladder ejection fraction is 93% (normal gallbladder ejection fraction is greater than 35%). NM/NM hepatobiliary w pharm IMPRESSION: Visualization of the gallbladder is evidence of a patent cystic duct and strong evidence against the diagnosis of acute cholecystitis. The common bile duct is patent. Liver function appears normal. Gallbladder ejection fraction is increased suggesting hyperkinetic gallbladder.
[2023-10-04 03:44] LABS: MANUAL DIFF FLAG NO
[2023-10-04 03:49] LABS: Basophils Percent Auto 0.3 % (0-2); Eosinophils Absolute Auto 0.1 X10*3/uL (0.0-0.4); Eosinophils Percent Auto 0.6 % (0-4); Hematocrit 36.1 % (37.0-47.0); Hemoglobin 11.5 g/dl (12.0-16.0); Imm Gran Abs Auto 0.03 X10*3/uL (0.00-0.03); Imm Gran Pct Auto 0.3 % (0.0-0.4); Lymphocytes Absolute Auto 2.7 X10*3/uL (1.2-4.9); Lymphocytes Percent Auto 27.7 % (20-40); Mean Corpuscular HGB Conc 31.9 g/dl (31.0-35.0); Mean Corpuscular Hemoglobin 27.8 pg (27.0-33.0); Mean Corpuscular Volume 87.4 fL (80.0-98.0); Monocytes Absolute Auto 0.6 X10*3/uL (0.1-1.2); Monocytes Percent Auto 6.6 % (2-11); Neutrophils Absolute Auto 6.2 x10*3/uL (2.0-8.3); Neutrophils Percent Auto 64.5 % (45-73); Platelet Count 179 X10*3/uL (160-400); Red Blood Count 4.13 X10*6/uL (4.20-5.50); Red Cell Distribution Width 13.5 % (11.0-16.0); White Blood Count 9.6 X10*3/uL (4.8-10.8)
[2023-10-04 03:58] LABS: Alanine Aminotransferase 18 U/L (0-31); Albumin Level 3.8 g/dL (3.5-5.0); Alkaline Phosphatase 70 U/L (39-117); Anion Gap 8 (12-20); Aspartate Amino Transferase 16 U/L (5-31); Bilirubin Total 0.1 mg/dL (0.0-1.0); Blood Urea Nitrogen 14 mg/dL (9-16); Calcium 9.8 mg/dL (8.4-10.2); Carbon Dioxide 28 mmol/L (22-29); Chloride 109 mmol/L (96-108); Creatinine Clr Calc Pharmacy 80.6; Estimated Glomerular Filt Rate > 60; Glucose Random 95 mg/dL (60-115); Potassium 3.9 mmol/L (3.3-5.1); Sodium 141 mmol/L (135-145); Total Protein 6.1 g/dL (6.5-8.0)
[2023-10-04 07:16] LABS: Lipase 26 U/L (8-78); Magnesium 1.9 mg/dL (1.6-2.6)
[2023-10-04] MEDS: ondansetron HCL 4 MG/2 ML VIAL IVPUSH (07:32)
[2023-10-04] MEDS: Ketorolac Tromethamine 30 MG/ML VIAL IVPUSH (07:32)
--- NOTE | 2023-10-04 07:42 | ED.ABDPAIN ---
HPI - Abdominal Pain General Chief Complaint: Abdominal Pain Stated Complaint: Abd pain Time Seen by Provider: 10/04/23 06:36 Source: patient Mode of arrival: ambulatory Limitations: no limitations History of Present Illness HPI narrative: 33-year-old female presenting to the ER with complaints of epigastric/right upper quadrant abdominal pain that started 1 hour prior to arrival. She endorses nausea. She reports the pain as a poking sensation. She reports that she has never had this pain in the past. She denies any fevers, chills, chest pain or shortness of breath, cough or congestion, radiation of the pain, back pain, dysuria hematuria, abnormal vaginal discharge, diarrhea constipation, black or bloody stools or any other symptoms complaints or concerns at this time. MD elicited complaint: abdominal pain Pertinent past history: none Onset (ago): hour(s) Pain Consistency: constant Location: epigastric and RUQ Severity: moderate Quality: other (Poking sensation) Radiation: none Migration to: no migration Exacerbating factors: nothing Relieving factors: nothing Associated symptoms: nausea Related Data Home Medications Medication Instructions Recorded Confirmed multivitamin 1 tab PO DAILY 07/06/20 09/01/23 omega-3 fatty acids 1,000 mg 1,000 mg PO DAILY 07/06/20 09/01/23 capsule (Fish Oil Concentrate) biotin 1 mg capsule 1 mg PO DAILY 10/03/20 09/01/23 Previous Rx's Medication Instructions Recorded calcium carbonate 500 mg calcium 500 mg PO DAILY #90 tabs 03/04/22 (1,250 mg) tablet ferrous sulfate 325 mg (65 mg 325 mg PO DAILY 90 days #90 tabs 10/17/22 iron) tablet (Feosol) ascorbic acid (vitamin C) 500 mg 500 mg PO .QD 90 days #90 caps 02/24/23 capsule folic acid 1 mg tablet 1 mg PO DAILY #90 tabs 02/24/23 fexofenadine 180 mg tablet 180 mg PO DAILY #90 tabs 05/06/23 (Elyssa Allergy) tranexamic acid 650 mg tablet 1,300 mg (2 x 650 mg) PO TID #30 06/06/23 tabs BOOST HIGH PROTEIN #60 ea 06/16/23 BOOST to take BID #60 ea 07/10/23 terconazole 0.8 % vaginal cream 1 appful vaginal BEDTIME 3 days 08/07/23 #20 grams famotidine 20 mg tablet 20 mg PO BEDTIME #90 tabs 09/01/23 fluticasone propionate 50 2 spray intranasal DAILY #16 grams 09/01/23 mcg/actuation nasal spray,suspension (Flonase Allergy Relief) omeprazole 20 mg capsule,delayed 20 mg PO DAILY #90 caps 09/01/23 release paroxetine HCl 10 mg tablet 10 mg PO .QHS #30 tabs 09/01/23 famotidine 20 mg tablet (Pepcid) 20 mg PO BEDTIME #30 tabs 09/22/23 Allergies Allergy/AdvReac Type Severity Reaction Status Date / Time pomegranate [POMEGRANATE] Allergy Mild RASH Verified 09/22/23 10:17 No Known Drug Allergies Allergy Unknown none Verified 09/22/23 10:17 Seasonal Allergies Allergy Unknown Verified 09/22/23 10:17 Review of Systems Review of Systems Constitutional : No Fever, No Chills, No Night Sweats, No Fatigue, No Malaise Cardiovascular : No Chest Pain, No SOB Respiratory : No Cough, No Sputum, No Wheezing, No Dyspnea Gastrointestinal : + Nausea, No Vomiting, No Diarrhea, + abdominal Pain, No Hematochezia, No Melena Genitourinary : No irregular bleeding, No Dysuria, No Urinary Frequency, No Hematuria,No Urinary Incontinence, No Urgency, No Flank Pain Musculoskeletal : No joint pain, No Myalgias, No Joint Swelling Skin : No Skin Lesions, No rash Neuro : No Weakness, No Numbness, No Paresthesias, No Loss of Consciousness, No Dizziness, No Headache Heme/Lymph: No Lymphadenopathy Endocrine : No Temperature Intolerance Yes all other systems are reviewed and are negative [facility] Past Medical History Attestation statement: The following information was validated with the patient. Source: old records reviewed and nursing notes reviewed Medical History RUQ abdominal pain Cholelithiasis Epigastric abdominal pain Abnormal uterine bleeding (AUB) Dysfunctional uterine bleeding Well woman exam ZULEMA II (cervical intraepithelial neoplasia II) Acute vaginitis Toe fracture, left Iron deficiency anemia Ulnar neuropathy Left renal stone Vitamin B12 deficiency Dysplasia of cervix, low grade (ZULEMA 1) GERD (gastroesophageal reflux disease) Asthma Vitamin D deficiency Surgical History History of esophagogastroduodenoscopy (EGD) H/O LEEP History of tubal ligation History of wisdom tooth extraction History of tonsillectomy Family History Family History Father CVD (cardiovascular disease) Myocardial infarction Mother Hodgkin lymphoma Colon cancer Lung cancer Brother Leukemia Colon cancer Maternal Grandmother Diabetes Social History Social History Housing: Apartment Alcohol intake: current Alcohol intake frequency: holidays/special occasions only Patient Tobacco Use Status: Never used Tobacco Smoked in Last 30 Days: No e-Cigarette/Vaping Use: Never Used Second Hand Smoke Exposure: No Use of substances other than those prescribed or required for medical reasons: No Advance Directives: No Advance Directives Information Provided: Yes Patient : No service: No Current occupational status: disabled Gender identity: Female Cognitive needs: No Hearing needs: No Vision needs: Yes Physical Exam ED Vital Signs: Vital Signs - 24 hr 10/04/23 03:28 10/04/23 06:00 10/04/23 08:15 Temperature 98.7 F 97.5 F 98.1 F Pulse Rate 96 86 90 Respiratory Rate 18 12 16 Blood Pressure 102/66 94/54 L 91/49 L Pulse Oximetry 98 98 99 Oxygen Delivery Method Room Air Room Air Room Air 10/04/23 10:41 10/04/23 12:19 10/04/23 16:55 Temperature 98.2 F Pulse Rate 76 85 81 Respiratory Rate 14 14 14 Blood Pressure 100/57 L 103/55 L 106/62 Pulse Oximetry 100 99 Oxygen Delivery Method Nasal Cannula Room Air Room Air BMI result Body Mass Index 18.4 Vital signs have been reviewed and all within normal limits Appearance: Alert. Oriented X3. No acute distress. Head: Normal external exam. Normocephalic. Eyes: PERRLA. EOMI. Conjunctiva and sclera normal. Eyelids normal. ENT: Pharynx normal. Uvula midline. Moist mucous membranes. No trismus noted. No drooling noted. No muffled voice noted. Neck: Normal inspection. Neck supple. FROM. No adenopathy. No meningeal signs. CVS: Normal heart rate and rhythm. Heart sound normal. No murmurs noted. Pulses normal throughout. Respiratory: No respiratory distress. Painless inspiration. Breath sounds normal. No wheezes/rales/rhonchi noted. Chest nontender. No accessory muscle usage noted or decreased air movement noted. Abdomen: Soft and TTP to epigastric/RUQ with guarding. Nondistended. No guarding. No rigidity. Bowel sounds normal in all 4 quadrants. No distention noted. No organomegaly noted. No visible injury noted. No rebound tenderness. Negative Rovsing sign. Negative obturator's sign. Negative psoas sign. Negative Marin sign. Back: No CVA tenderness. Full range of motion noted. Skin: Skin warm and dry. Normal skin color. Normal skin turgor. No rashes/lesions/lacerations noted. Extremities: Extremities exhibit normal range of motion. Extremities nontender. Neuro: Oriented X 3. No motor deficit. No sensory deficit. Reflexes normal. Normal steady gait. CN's II-XII intact bilaterally? Course Course Course Narrative: This is a 33yoF with RUQ abdominal pain, consistent with biliary colic. Abdominal exam without peritoneal signs. No evidence of acute abdomen at this time. Well appearing. Moderate suspicion for acute hepatobiliary disease (includng acute cholecystitis). Less likely to represent acute pancreatitis, PUD (including perforation), acute infectious processes (pneumonia, hepatitis, pyelonephritis), atypical appendicitis, vascular catastrophe, bowel obstruction or viscus perforation. Presentation not consistent with other acute, emergent causes of abdominal pain at this time. Plan: labs, UA, pain control with toradol and zofran, RUQ US, serial reassessment Reevaluation(s) Reevaluation #1: All labs within normal limits. UA within normal limits no evidence of UTI. [facility] negative for . Awaiting abdominal ultrasound will re-evaluate Time: 07:53 Reevaluation #2: Ultrasound revealed Cholelithiasis. Gallbladder otherwise unremarkable. However, given the positive sonographic Marin sign, acute cholecystitis cannot be excluded. Clinical correlation requested. Depending on clinical circumstances, further assessment with HIDA scan could be performed to assess for cystic duct patency. Therefore at this time patient will be placed NPO and HIDA scan will be ordered. Wilfredo from [employer] reported he will be in at 13:00 to perform the patient's HIDA scan. NPO order placed at this time. Patient reports her symptoms are improved. Will continue to monitor Time: 09:43 Reevaluation #3: Will patient will be signed out to JACINDA Mcclure pending HIDA scan Time: 16:38 Additional Reevaluation(s): 1840-I received sign-out on this patient pending a HIDA scan FINDINGS: There is good concentration of activity in the liver by 5 minutes post injection. Biliary activity is visualized by 6-8 minutes. The gallbladder is well visualized by 8-10 minutes. Small bowel is well visualized by 30 minutes. At 60 minutes post radiopharmaceutical injection, a 30-minute infusion of 1 micrograms Sincalide was then begun and an additional 30 minutes of images were obtained. There is good emptying of the gallbladder. By the end of the study there is good clearance of activity from the liver and visualization of diffuse small bowel activity. The calculated gallbladder ejection fraction is 93% (normal gallbladder ejection fraction is greater than 35%). NM/NM hepatobiliary w pharm IMPRESSION: Visualization of the gallbladder is evidence of a patent cystic duct and strong evidence against the diagnosis of acute cholecystitis. The common bile duct is patent. Liver function appears normal. Gallbladder ejection fraction is increased suggesting hyperkinetic gallbladder. Patient has no pain. Well-appearing. Can be discharged home with outpatient surgical follow-up Medical Decision Making Medical Decision Making [facility] Narrative: see course Differential Diagnosis Differential Diagnoses: The differential diagnosis associated with the presentation includes see course Lab Data [facility] Lab Attestation statement: I reviewed the patient's lab results. 10/04/23 03:40 10/04/23 03:40 Labs: Lab Results 10/04/23 10/04/23 10/04/23 Range/Units 03:40 07:25 07:26 WBC 9.6 (4.8-10.8) X10*3/uL RBC 4.13 L (4.20-5.50) X10*6/uL Hgb 11.5 L (12.0-16.0) g/dl Hct 36.1 L (37.0-47.0) % MCV 87.4 (80.0-98.0) fL MCH 27.8 (27.0-33.0) pg MCHC 31.9 (31.0-35.0) g/dl RDW 13.5 (11.0-16.0) % Plt Count 179 (160-400) X10*3/uL MPV 10.0 (9.4-12.3) fL Immature Gran % (Auto) 0.3 (0.0-0.4) % Neut % (Auto) 64.5 (45-73) % Lymph % (Auto) 27.7 (20-40) % [place] % (Auto) 6.6 (2-11) % Eos % (Auto) 0.6 (0-4) % Baso % (Auto) 0.3 (0-2) % Lymph # (Auto) 2.7 (1.2-4.9) X10*3/uL [place] # (Auto) 0.6 (0.1-1.2) X10*3/uL Eos # (Auto) 0.1 (0.0-0.4) X10*3/uL Baso # (Auto) 0.0 (0.0-0.2) X10*3/uL Abs Immat Gran (auto) 0.03 (0.00-0.03) X10*3/uL Absolute Neuts (auto) 6.2 (2.0-8.3) x10*3/uL Absolute Nucleated RBC 0.000 (0.0-0.012) X10*3/uL Nucleated RBC % (auto) 0.0 (0.0-0.2) /100WBC Sodium 141 (135-145) mmol/L Potassium 3.9 (3.3-5.1) mmol/L Chloride 109 H (96-108) mmol/L Carbon Dioxide 28 (22-29) mmol/L Anion Gap 8 L (12-20) BUN 14 (9-16) mg/dL Creatinine 0.80 (0.5-1.4) mg/dL Estim Creat Clear Calc 80.6 Estimated GFR > 60 Random Glucose 95 (60-115) mg/dL Calcium 9.8 D (8.4-10.2) mg/dL Magnesium 1.9 (1.6-2.6) mg/dL Total Bilirubin 0.1 (0.0-1.0) mg/dL AST 16 (5-31) U/L ALT 18 (0-31) U/L Alkaline Phosphatase 70 (39-117) U/L Total Protein 6.1 L (6.5-8.0) g/dL Albumin 3.8 (3.5-5.0) g/dL Lipase 26 (8-78) U/L Urine Color Yellow Urine Appearance Clear Urine pH 7.0 (5.0-9.0) Ur Specific [place] 1.015 (1.005-1.025) Urine Protein Negative (Neg-Trace) mg/dL Urine Glucose (UA) Negative (Negative) mg/dL Urine Ketones Negative (Negative) mg/dL Urine Blood Negative (Negative) Urine Nitrite Negative (Negative) Ur Leukocyte Esterase Negative (Negative) Urine Test NEGATIVE (NEGATIVE) Independent Interpretation I performed an independent interpretation of an: Ultrasound (I independently reviewed the ultrasound and agreeable radiologist reports) Radiology Impression Discussion of test interpretation with radiology: I discussed test interpretation with the radiologist and I have reviewed the radiologist's reading. Radiologist Impression: FINDINGS: PANCREAS: Normal. LIVER: Normal. The liver is normal in size. The liver contour is normal. Parenchymal echogenicity is normal. No focal hepatic lesion. There is no intrahepatic biliary duct dilatation seen. GALLBLADDER: Single echogenic shadowing gallstone is seen within the gallbladder. The gallbladder is partially decompressed. No definite sludge, polyps, wall thickening or pericholecystic fluid. There is a positive sonographic Marin sign is elicited while scanning over the gallbladder. COMMON BILE DUCT: Normal in caliber measuring 0.2 cm in diameter. RIGHT KIDNEY: Normal. No hydronephrosis. No renal calculi or focal parenchymal lesions. The kidney measures 9.5 cm in maximum dimension. FREE FLUID: None. US/US abdomen limited IMPRESSION: Cholelithiasis. Gallbladder otherwise unremarkable. However, given the positive sonographic Marin sign, acute cholecystitis cannot be excluded. Clinical correlation requested. Depending on clinical circumstances, further assessment with HIDA scan could be performed to assess for cystic duct patency. Independent Historian Patient, medical records and nurse's note External Record Review External record reviewed: Inpatient record, Office record, Outpatient record, Prior outpatient labs, Prior outpatient radiology, Primary care record and Outside ED record All prior labs/imaging/notes that are accessible in our system reviewed by myself Prescription Management I considered prescription management with: Pain Medication (Toradol and Zofran given) Social Determinants Patient?s care significantly limited by Social Determinants of Health including: Other Social Determinant of Health Medications Administered Discontinued Medications Generic Name Dose Route Start Last Admin Trade Name Matt PRN Reason Stop Dose Admin Ketorolac Tromethamine 30 mg 10/04/23 06:55 10/04/23 07:32 Ketorolac Tromethamine 30 Mg/Ml Vial IVPUSH 10/04/23 06:56 30 mg ONCE ONE Administration Ondansetron HCl 4 mg 10/04/23 06:55 10/04/23 07:32 Ondansetron Hcl 4 Mg/2 Ml Vial IVPUSH 10/04/23 06:56 4 mg ONCE ONE Administration Discharge Plan Discharge Clinical Impression: Gall bladder stones Patient Disposition: Home, Self-Care Instructions: Gallstones (ED) Prescriptions: No Action calcium carbonate 500 mg calcium (1,250 mg) tablet 500 mg PO DAILY Qty: 90 5RF ferrous sulfate [Feosol] 325 mg (65 mg iron) tablet 325 mg PO DAILY 90 Days Qty: 90 2RF folic acid 1 mg tablet 1 mg PO DAILY Qty: 90 3RF ascorbic acid (vitamin C) 500 mg capsule 500 mg PO .QD 90 Days Qty: 90 2RF fexofenadine [Elyssa Allergy] 180 mg tablet 180 mg PO DAILY Qty: 90 0RF tranexamic acid 650 mg tablet 1,300 mg PO TID Qty: 30 3RF Rx Instructions: Take 2 tablets 3 times a day starting the 1st day of menstrual cycle up to 3-5 days (DME) BOOST HIGH PROTEIN See Rx Instructions .Route .MEDSUPPLY Qty: 60 5RF Rx Instructions: As directed (DME) BOOST to take BID See Rx Instructions .Route .MEDSUPPLY Qty: 60 12RF Rx Instructions: weight loss , 10 lbs in the past 6 month, BMI at 17.4 on 05/2023 and Anemia multivitamin Tablet 1 tab PO DAILY omega-3 fatty acids [Fish Oil Concentrate] 1,000 mg capsule 1,000 mg PO DAILY biotin 1 mg capsule 1 mg PO DAILY paroxetine HCl 10 mg tablet 10 mg PO .QHS Qty: 30 3RF fluticasone propionate [Flonase Allergy Relief] 50 mcg/actuation spray,suspension 2 spray intranasal DAILY Qty: 16 2RF Rx Instructions: administer into each nostril omeprazole 20 mg capsule,delayed release(DR/EC) 20 mg PO DAILY Qty: 90 1RF famotidine 20 mg tablet 20 mg PO BEDTIME Qty: 90 1RF terconazole 0.8 % cream 1 appful vaginal BEDTIME 3 Days Qty: 20 0RF famotidine [Pepcid] 20 mg tablet 20 mg PO BEDTIME Qty: 30 3RF Referrals: Seymour Farooq MD [Physician] - 1 week
[2023-10-04 07:48] LABS: Appearance Urine Clear; Color Urine Yellow; Glucose Urine UA Negative (Negative); Leukocyte Esterase Urine Negative (Negative); Nitrite Urine Negative (Negative); Specific Gravity - Urine 1.015 (1.005-1.025); Urine Blood Negative (Negative); Urine Ketones Negative (Negative); Urine Protein Negative (Neg-Trace)
[2023-10-04 07:52] LABS: UPreg QC Valid YES; Urine Pregnancy NEGATIVE (NEGATIVE)
--- NOTE | 2023-10-04 08:05 | PC.NURSE ---
Assumed care of this patient at 0700, resting quietly on the stretcher at this time, continues c/o abd pain 01/27 patient medicated per SEP, currently getting ultrasound of abd.
--- NOTE | 2023-10-04 11:51 | PC.NURSE ---
Patient resting quietly on stretcher at this time, NPO until 1300 for HIDA scan.
--- NOTE | 2023-10-04 14:53 | PC.NURSE ---
Patient currently in nuc med getting HIDA scan
--- NOTE | 2023-10-04 16:41 | PC.NURSE ---
P IS STILL OVER IN NUC MED, DUE BACK IN 10 MINS
--- NOTE | 2023-10-04 18:26 | PC.NURSE ---
spoke with live truck technician RE HIDA scan results, image has been read, not yet signed.
== END 2023-10-04 18:49 | disposition home or self-care (01) ==
PROVIDERS: Physician Assistant Medical; Emergency Provider Emergency Medicine; PCP Internal Medicine
DX: K80.20 Calculus of gallbladder without cholecystitis without obstruction (principal); R10.11 Right upper quadrant pain; R11.0 Nausea
CPT/HCPCS: 36415; 76705; 78227; 80053; 81003; 81025; 83690; 83735; 85025; 96374; 96375; 99285; A9537; J1885; J2405; J2805

== ENCOUNTER 2023-10-13 08:45 | Outpatient (AMB) | payer OTHER, SELFPAY ==
--- NOTE | 2023-10-13 08:46 | MHC.OFFVIS ---
Intake Vital Signs 10/13/23 08:49 Height 5 ft 5 in Weight 113 lb BMI 18.8 BP 105/56 L Blood Pressure Location Rt brachial Position Sitting Pulse 84 Intake Visit Reasons: Gallstones Intake Note: Patient referred after ER visit. Patient c/o: RUQ pain that comes and goes. HIDA/ ABD US: 10-04-23. Floor Plan Adjuster Required: No Accompanied by: Self / Same As Patient Allergies pomegranate [POMEGRANATE] Allergy (Mild, Verified 10/13/23 08:47) RASH No Known Drug Allergies Allergy (Unknown, Verified 10/13/23 08:47) none Seasonal Allergies Allergy (Verified 10/13/23 08:47) Unknown HPI HPI Comments History of Present Illness Details Patient presents for evaluation because of bouts of recurrent biliary colic. She has had 2 ER visits 1 recently 1 in the past. Workup has included several ultrasounds and HIDA scans. Patient otherwise tolerates a diet, and has regular bowel habits. She has never been jaundiced before. She is unclear if she actually has fatty food intolerance and operate her symptoms of right upper quadrant/epigastric pain radiating around to her back. Patient is Chart was reviewed and patient evaluated [facility] Medical History RUQ abdominal pain Cholelithiasis Epigastric abdominal pain Abnormal uterine bleeding (AUB) Dysfunctional uterine bleeding Well woman exam ZULEMA II (cervical intraepithelial neoplasia II) Acute vaginitis Toe fracture, left Iron deficiency anemia Ulnar neuropathy Left renal stone Vitamin B12 deficiency Dysplasia of cervix, low grade (ZULEMA 1) GERD (gastroesophageal reflux disease) Asthma Vitamin D deficiency Surgical History History of esophagogastroduodenoscopy (EGD) H/O LEEP History of tubal ligation History of wisdom tooth extraction History of tonsillectomy Family History Father CVD (cardiovascular disease) Myocardial infarction Mother Hodgkin lymphoma Colon cancer Lung cancer Brother Leukemia Colon cancer Maternal Grandmother Diabetes Social History Housing: Apartment Alcohol intake: current Alcohol intake frequency: holidays/special occasions only Patient Tobacco Use Status: Never used Tobacco e-Cigarette/Vaping Use: Never Used Second Hand Smoke Exposure: No service: No Current occupational status: disabled Gender identity: Female Cognitive needs: No Hearing needs: No Vision needs: Yes Female Reproductive History Menstrual Age of Menarche: 13 Physical Exam Vital Signs: Last Vital Signs Pulse 84 10/13/23 08:49 BP 105/56 L 10/13/23 08:49 BMI result Body Mass Index 18.8 Chest Other: Chest breath sounds bilaterally, HS 1 in 2 GI Other: Abdomen thin, soft, benign Assessment & Plan Assessment & Plan (1) Gall bladder stones: Code(s): K80.20 - Calculus of gallbladder without cholecystitis without obstruction (2) Recurrent biliary colic: Code(s): K80.50 - Calculus of bile duct without cholangitis or cholecystitis without obstruction Plan Risks, benefits, alternatives of laparoscopic possible open cholecystectomy reviewed the patient included but not limited to bleeding, infection, recurrence of symptoms, numbness, pain, scarring, bowel or bile duct injury or leak and the patient wishes to proceed. All questions answered. Arrangements were made for this. Coding Level of Care Code New Pt Level 5 (35664) Diagnoses Gall bladder stones K80.20 Recurrent biliary colic K80.50
[2023-10-13 08:49] VITALS: BP 105/56; PULSE 84; BMI 18.8
== END 2023-10-13 09:08 | disposition home or self-care (01) ==
PROVIDERS: PCP Internal Medicine; Visit Provider Surgery
DX: K80.20 Calculus of gallbladder without cholecystitis without obstruction (principal); K80.50 Calculus of bile duct without cholangitis or cholecystitis without obstruction
CPT/HCPCS: 99204

== ENCOUNTER → 2023-10-13 08:45 | Outpatient (BNVA) | payer OTHER, SELFPAY | PROVIDERS: PCP Internal Medicine; Visit Provider Surgery | DX: K80.20 Calculus of gallbladder without cholecystitis without obstruction (principal); K80.50 Calculus of bile duct without cholangitis or cholecystitis without obstruction | CPT/HCPCS: 99202 ==

== ENCOUNTER 2023-10-20 10:29 | Outpatient (AMB) | payer OTHER, SELFPAY ==
[2023-10-20 10:35] VITALS: BMI 18.7
--- NOTE | 2023-10-20 10:35 | A.OFFVIS_ITS ---
Intake VS Expanded 10/20/23 10:35 Height 5 ft 5 in Weight 112 lb 10.499 oz BMI 18.7 Intake Visit Reasons: uderweight/CONFIRMED Allergies pomegranate [POMEGRANATE] Allergy (Mild, Verified 10/13/23 08:47) RASH No Known Drug Allergies Allergy (Unknown, Verified 10/13/23 08:47) none Seasonal Allergies Allergy (Verified 10/13/23 08:47) Unknown HPI Nutrition Presentation Details Pt presents for MNT follow up for underweight. Pt reports working on having 3-5 meals throughout the day Making some meals with ensure (like cereals, smoothies) Pt reports having juices with meals EAting out in the evening at fast food restaurants eating out most days of the week (rice/pork or fritters and juice or water bowel movement : daily , denies constipation denies vomiting physical activity:sedentary Most Recent Diabetes Results: Creatinine 0.80 mg/dL (0.5-1.4) 10/04/23 Blood Urea Nitrogen 14 mg/dL (9-16) 10/04/23 Sodium 141 mmol/L (135-145) 10/04/23 Potassium 3.9 mmol/L (3.3-5.1) 10/04/23 Chloride 109 mmol/L (96-108) H 10/04/23 Carbon Dioxide 28 mmol/L (22-29) 10/04/23 Calcium 9.8 mg/dL (8.4-10.2) 10/04/23 AST 16 U/L (5-31) 10/04/23 ALT 18 U/L (0-31) 10/04/23 Total Protein 6.1 g/dL (6.5-8.0) L 10/04/23 Albumin 3.8 g/dL (3.5-5.0) 10/04/23 [facility] Medical History RUQ abdominal pain Cholelithiasis Epigastric abdominal pain Abnormal uterine bleeding (AUB) Dysfunctional uterine bleeding Well woman exam ZULEMA II (cervical intraepithelial neoplasia II) Acute vaginitis Toe fracture, left Iron deficiency anemia Ulnar neuropathy Left renal stone Vitamin B12 deficiency Dysplasia of cervix, low grade (ZULEMA 1) GERD (gastroesophageal reflux disease) Asthma Vitamin D deficiency Surgical History History of esophagogastroduodenoscopy (EGD) H/O LEEP History of tubal ligation History of wisdom tooth extraction History of tonsillectomy Family History Father CVD (cardiovascular disease) Myocardial infarction Mother Hodgkin lymphoma Colon cancer Lung cancer Brother Leukemia Colon cancer Maternal Grandmother Diabetes Social History Housing: Apartment Alcohol intake: current Alcohol intake frequency: holidays/special occasions only Patient Tobacco Use Status: Never used Tobacco e-Cigarette/Vaping Use: Never Used Second Hand Smoke Exposure: No service: No Current occupational status: disabled Gender identity: Female Cognitive needs: No Hearing needs: No Vision needs: Yes Female Reproductive History Menstrual Age of Menarche: 13 Assessment & Plan Assessment & Plan (1) Abnormal weight loss: Code(s): R63.4 - Abnormal weight loss Plan: Recommend : Having nutrient dense beverages, working on meal routine, not skipping meals wt 49 kg, (49.9 on 08/2023), 51 kg (10/2023) Est kcal needs : 8743-4669 seth per day + 500 to continue promoting weight gain (40% carb, 30% protein/fat) Est fluid needs as per 35 ml/d: 1700 Est prot per day as per 1.2 g/kg bw: 59 g/ Recommend fiber intake : 8-10 g per day and gradually increase to 25-28 g per day for women and 35-38 g for men or as tolerated Educated patient on: ( R = reviewed V = verbalizes understanding N/R = needs review N/A = not applicable * Food sources of protein and its role in anemia, muscle mass, GI function : R * Hydration with nutrient dense beverages : milk, juice, water with juice, coconut water , no non diet beverages due to lack of nutrition: R * Healthy plate method concept: R * increasing meals: having 6 small meals per day , preventing going more than 4 hours without eating during the day * relationship of alcohol and appetite, reinforce reduction and choosing nutrient dense beverages: R Patient Instructions: Try a variety of foods Drink juices, milk, non diet beverages with meals Continue working on having 5-6 small meals per day take iron supplements as recommended by your doctor Coding Level of Care Code Nutr Indiv Subseq (94949) Diagnoses Abnormal weight loss R63.4 Time Spent (min) 20
== END 2023-10-20 10:59 | disposition home or self-care (01) ==
PROVIDERS: PCP Internal Medicine; Visit Provider Dietitian, Registered
DX: R63.4 Abnormal weight loss (principal)

== ENCOUNTER → 2023-10-20 10:29 | Outpatient (BNVA) | payer OTHER, SELFPAY | PROVIDERS: PCP Internal Medicine; Visit Provider Dietitian, Registered | DX: R63.6 Underweight (principal); Z71.3 Dietary counseling and surveillance; Z68.1 Body mass index [BMI] 19.9 or less, adult | CPT/HCPCS: 97803 ==

== ENCOUNTER 2023-11-24 08:54 | Outpatient (AMB) | payer OTHER, SELFPAY ==
--- NOTE | 2023-11-24 09:00 | A.OFFVIS_ITS ---
Vital Signs 11/24/23 09:01 Height 5 ft 5 in Weight 113 lb BMI 18.8 BP 91/50 L Blood Pressure Location Rt brachial Position Sitting Pulse 79 Intake Visit Reasons: 2 month follow up GERD Intake Note: Patient follow up for GERD. Patient cc: GERD on and off, appettite is better and she gain couples of pounds. Denies any other GI issues. Slicer Machine Operator Required: No Accompanied by: Self / Same As Patient Allergies pomegranate [POMEGRANATE] Allergy (Mild, Verified 11/24/23 08:58) RASH No Known Drug Allergies Allergy (Unknown, Verified 11/24/23 08:58) none Seasonal Allergies Allergy (Verified 11/24/23 08:58) Unknown HPI HPI 2 month follow up GERD: Details: LAST VISIT GERD (gastroesophageal reflux disease) Weight loss Depressed affect Plan Patient continues to see chiller technician. Discussed with patient trying to avoid stress. Continue to take omeprazole in the morning and famotidine at bedtime. Patient will eat more often and smaller meals. Continue avoiding dietary triggers in late night snacking. Staying upright for minimum 3 hours after meals discussed with patient. Patient will follow-up in 2 months, sooner on as needed basis. She is agreeable to this plan and verbalizes understanding of instructions. She was given the opportunity to ask questions and all questions answered. ? Thank you for allowing me to participate in her care Medications New famotidine (Pepcid) 20 mg PO BEDTIME 30 tabs 3RF K21.9 TODAY'S VISIT: Patient is here today for follow-up. Patient reports that she has been feeling better. One episode in September of postprandial epigastric pain and colic. Patient was found to have a cholelithiasis. Patient was seen by General surgery and will have cholecystectomy this . Patient was told previously by GI provider that she should go for colorectal screening every 5 years due to family history of CRC. Patient's brother of CRC in his early 50s. Patient's mom also had colorectal cancer. Patient reports that she has been feeling better. Only uses famotidine on as needed basis. Patient no longer is using omeprazole. Patient denies any abdominal pain or discomfort. Patient reports that she has been eating better. Patient reports that she is moving her bowels daily. Denies any nausea or vomiting. She continues to see chiller technician to help with meal planning COUNTS INCLUDE 234 BEDS AT THE [facility] Medical History RUQ abdominal pain Cholelithiasis Epigastric abdominal pain Abnormal uterine bleeding (AUB) Dysfunctional uterine bleeding Well woman exam ZULEMA II (cervical intraepithelial neoplasia II) Acute vaginitis Toe fracture, left Iron deficiency anemia Ulnar neuropathy Left renal stone Vitamin B12 deficiency Dysplasia of cervix, low grade (ZULEMA 1) GERD (gastroesophageal reflux disease) Asthma Vitamin D deficiency Surgical History History of esophagogastroduodenoscopy (EGD) H/O LEEP History of tubal ligation History of wisdom tooth extraction History of tonsillectomy Family History Father CVD (cardiovascular disease) Myocardial infarction Mother Hodgkin lymphoma Colon cancer Lung cancer Brother Leukemia Colon cancer Maternal Grandmother Diabetes Social History Housing: Apartment Alcohol intake: current Alcohol intake frequency: holidays/special occasions only Patient Tobacco Use Status: Never used Tobacco e-Cigarette/Vaping Use: Never Used Second Hand Smoke Exposure: No service: No Current occupational status: disabled Gender identity: Female Cognitive needs: No Hearing needs: No Vision needs: Yes Female Reproductive History Menstrual Age of Menarche: 13 Review of Systems Const Denies weight gain and Denies weight loss ENT Reports no additional complaints, Denies dysphagia and Denies odynophagia Card Reports no additional complaints Resp Reports no additional complaints GI Denies abdominal pain, Denies belching, Denies melena, Denies bloating, Denies change in bowel habits, Denies dysphagia, Denies excessive flatus, Denies dyspepsia, Denies heartburn, Denies diarrhea, Denies loose stools, Denies nausea, Denies odynophagia and Denies vomiting Musc Reports no additional complaints Neuro Reports no additional complaints Psych Reports no additional complaints Endo Reports no additional complaints Physical Exam Vital Signs: Last Vital Signs Pulse 79 11/24/23 09:01 BP 91/50 L 11/24/23 09:01 BMI result Body Mass Index 18.8 Const General: healthy appearing, no acute distress and well developed Nutritional Appearance: well nourished Orientation/consciousness: patient oriented x3 Resp Effort & Inspection: normal respiratory effort, able to speak in complete sentences, no tracheal deviation and symmetric chest movement Auscultation: clear to auscultation bilaterally Cardio Rate: regular rate GI Inspection: Yes normal to inspection and No distended Palpation (GI): Soft to palpation, not firm, nontender and No hepatosplenomegaly present Auscultation: normal bowel sounds General: Yes no CVA tenderness Back/Spine/Pelvis Back: no CVA tenderness Skin General skin exam: elasticity normal, turgor normal and dry skin Neuro General: patient oriented x3 Psych Appearance: grossly normal Mental Status: mental status grossly normal Assessment & Plan Assessment & Plan (1) Recurrent biliary colic: Code(s): K80.50 - Calculus of bile duct without cholangitis or cholecystitis without obstruction Category: Surgical (2) GERD (gastroesophageal reflux disease): Code(s): K21.9 - Gastro-esophageal reflux disease without esophagitis Category: Medical Qualifiers: Esophagitis presence: without esophagitis Qualified Code(s): K21.9 - Gastro-esophageal reflux disease without esophagitis (3) Weight loss: Code(s): R63.4 - Abnormal weight loss (4) Depressed affect: Code(s): R45.89 - Other symptoms and signs involving emotional state Plan Continue followups with chiller technician. Patient will continue avoiding dietary triggers. Increase fluid intake and activity to promote better bowel motility. Patient will return in 2 months to discuss prep before going for colonoscopy. Patient will call our office if she will have any GI concerning symptoms. She is agreeable to this plan and verbalizes understanding of instructions. She was given the opportunity to ask questions and all questions answered. Thank you for allowing me to participate in her care Coding Level of Care Code Est Pt Level 3 (42676) Diagnoses Recurrent biliary colic K80.50 Gastroesophageal reflux disease without esophagitis K21.9 Esophagitis presence: without esophagitis Weight loss R63.4 Depressed affect R45.89 Time Spent (min) 30 Comment 20 minutes spent with patient and additional 10 minutes spent reviewing her records
[2023-11-24 09:01] VITALS: BP 91/50; PULSE 79; BMI 18.8
== END 2023-11-24 09:26 | disposition home or self-care (01) ==
PROVIDERS: PCP Internal Medicine; Visit Provider Nurse Practitioner Family
DX: K80.50 Calculus of bile duct without cholangitis or cholecystitis without obstruction (principal); K21.9 Gastro-esophageal reflux disease without esophagitis; R63.4 Abnormal weight loss; R45.89 Other symptoms and signs involving emotional state
CPT/HCPCS: 99213

== ENCOUNTER → 2023-11-24 08:54 | Outpatient (BNVA) | payer OTHER, SELFPAY | PROVIDERS: PCP Internal Medicine; Visit Provider Nurse Practitioner Family | DX: K80.50 Calculus of bile duct without cholangitis or cholecystitis without obstruction (principal); K21.9 Gastro-esophageal reflux disease without esophagitis; R63.4 Abnormal weight loss; R45.89 Other symptoms and signs involving emotional state | CPT/HCPCS: 99212 ==

== ENCOUNTER 2023-11-27 09:05 | Day surgery (SDC) | payer OTHER, SELFPAY ==
[2023-11-25 12:16] VITALS: BMI 18.8
--- NOTE | 2023-11-26 15:18 | MHC.SHP ---
Pre-Procedural Eval Section A - 24 Hr Update-Section A only Date of Service: 11/26/23 The patient is an INPATIENT: No Changes since office visit: No Cold of Flu in the past 2 weeks, No New Medical Problems, No Changes in Medication and No Patient answered all questions Section B - Complete if H&P > 30 days Chief Complaint: Calculus of bile duct without cholangitis or bennett Allergies: Allergies Allergy/AdvReac Type Severity Reaction Status Date / Time pomegranate [POMEGRANATE] Allergy Mild RASH Verified 11/24/23 08:58 Seasonal Allergies Allergy Unknown Unknown Verified 11/25/23 12:13 Plan I have reviewed the history and physical and performed a pertinent physical examination on my patient. No changes have occurred unless specified. Time Spent With Patient Time: Total time managing care of this patient today ____ minutes.
[2023-11-27] VITALS (9 sets, daily range): BP systolic 106–128; BP diastolic 65–73; PULSE 80–91; RESP 15–18; TEMP 36.6–37.1; O2SAT 100
[2023-11-27] MEDS: Lactated Ringers 1,000 ML 100 ML IVCONT (10:03)
--- NOTE | 2023-11-27 11:55 | HO.ANESPROP2 ---
Documented by User: Eileen Murphy NP 11/26/23 09:30 HPI - Anesthesia Eval Consult details Narrative: 33yo F for Cholecystectomy Laparoscopic, possible open PMFSH Active Problems Active Problems: All Active Problems Recurrent biliary colic (Acute) COVID-19 virus infection (Acute) Nasal congestion (Acute) Cough (Acute) Vulvovaginitis (Acute) Abnormal weight loss (Acute) Micturition frequency (Acute) Vaginal itching (Acute) RUQ abdominal pain (Acute) Family history of colon cancer (Acute) Well woman exam (Acute) History of Helicobacter pylori infection (Acute) Menorrhagia (Acute) Anemia (Acute) Left renal stone (Acute) Cholelithiases (Acute) Generalized anxiety disorder (Acute) Annual physical exam (Acute) Screening for STD (sexually transmitted disease) (Acute) Allergic rhinitis (Acute) Dorsal wrist ganglion (Acute) Ganglion cyst of tendon sheath of right hand (Acute) Menorrhagia (Acute) Potential exposure to STD (Acute) Low back pain (Acute) Vitamin B12 deficiency (Acute) GERD (gastroesophageal reflux disease) (Acute) Past Medical History Medical History RUQ abdominal pain Cholelithiasis Epigastric abdominal pain Abnormal uterine bleeding (AUB) Dysfunctional uterine bleeding Well woman exam ZULEMA II (cervical intraepithelial neoplasia II) Acute vaginitis Toe fracture, left Iron deficiency anemia Ulnar neuropathy Left renal stone Vitamin B12 deficiency Dysplasia of cervix, low grade (ZULEMA 1) GERD (gastroesophageal reflux disease) Asthma Vitamin D deficiency Family History Family History Father CVD (cardiovascular disease) Myocardial infarction Mother Hodgkin lymphoma Colon cancer Lung cancer Brother Leukemia Colon cancer Maternal Grandmother Diabetes Family history of problems with anesthesia: No Surgical History Surgical History History of esophagogastroduodenoscopy (EGD) H/O LEEP History of tubal ligation History of wisdom tooth extraction History of tonsillectomy History of Problems with Anesthesia: No Social History Social History Housing: Apartment Alcohol intake: current Alcohol intake frequency: holidays/special occasions only Patient Tobacco Use Status: Never used Tobacco e-Cigarette/Vaping Use: Never Used Second Hand Smoke Exposure: No Advance Directives: No (unknown) Advance Directives Information Provided: Yes Advance Directives on File: No service: No Current occupational status: disabled Gender identity: Female Cognitive needs: No Hearing needs: No Vision needs: Yes Meds Allergies Allergy/AdvReac Type Severity Reaction Status Date / Time pomegranate [POMEGRANATE] Allergy Mild RASH Verified 11/27/23 09:46 Seasonal Allergies Allergy Unknown Unknown Verified 11/27/23 09:46 Home Medications ?Medication ?Instructions ?Recorded ?Confirmed ?Last Taken ?Type multivitamin 1 tab PO DAILY 07/06/20 11/25/23 Unknown History omega-3 fatty acids 1,000 mg 1,000 mg PO DAILY 07/06/20 11/25/23 11/26/23 History capsule (Fish Oil Concentrate) biotin 1 mg capsule 1 mg PO DAILY 10/03/20 11/25/23 Unknown History Exam Height,Weight and Vital Signs: Height 5 ft 5 in Weight 51.256 kg Pertinent Lab Results Pertinent Lab Results: Laboratory Tests 10/04/23 03:40 WBC 9.6 Hgb 11.5 L Hct 36.1 L Plt Count 179 Sodium 141 Potassium 3.9 Chloride 109 H Carbon Dioxide 28 BUN 14 Creatinine 0.80 Assessment and Plan Assessment Anesthesia Assessment: Chart Reviewed Final Anesthetic Review Family History of Problems with Anesthesia: No History of Problems with Anesthesia: No Documented by User: Angela Osman DO 11/27/23 12:00 [facility] Past Medical History Medical History RUQ abdominal pain Cholelithiasis Epigastric abdominal pain Abnormal uterine bleeding (AUB) Dysfunctional uterine bleeding Well woman exam ZULMEA II (cervical intraepithelial neoplasia II) Acute vaginitis Toe fracture, left Iron deficiency anemia Ulnar neuropathy Left renal stone Vitamin B12 deficiency Dysplasia of cervix, low grade (ZULEMA 1) GERD (gastroesophageal reflux disease) Asthma Vitamin D deficiency Family History Family History Father CVD (cardiovascular disease) Myocardial infarction Mother Hodgkin lymphoma Colon cancer Lung cancer Brother Leukemia Colon cancer Maternal Grandmother Diabetes Family history of problems with anesthesia: No Surgical History Surgical History History of esophagogastroduodenoscopy (EGD) H/O LEEP History of tubal ligation History of wisdom tooth extraction History of tonsillectomy History of Problems with Anesthesia: No Social History Social History Housing: Apartment Alcohol intake: current Alcohol intake frequency: holidays/special occasions only Patient Tobacco Use Status: Never used Tobacco e-Cigarette/Vaping Use: Never Used Second Hand Smoke Exposure: No Advance Directives: No (unknown) Advance Directives Information Provided: Yes Advance Directives on File: No service: No Current occupational status: disabled Gender identity: Female Cognitive needs: No Hearing needs: No Vision needs: Yes Meds Allergies Allergy/AdvReac Type Severity Reaction Status Date / Time pomegranate [POMEGRANATE] Allergy Mild RASH Verified 11/27/23 09:46 Seasonal Allergies Allergy Unknown Unknown Verified 11/27/23 09:46 Home Medications ?Medication ?Instructions ?Recorded ?Confirmed ?Last Taken ?Type multivitamin 1 tab PO DAILY 07/06/20 11/25/23 Unknown History omega-3 fatty acids 1,000 mg 1,000 mg PO DAILY 07/06/20 11/25/23 11/26/23 History capsule (Fish Oil Concentrate) biotin 1 mg capsule 1 mg PO DAILY 10/03/20 11/25/23 Unknown History Exam Exam Date and Time: November 27, 2023 1155 Height,Weight and Vital Signs: Height 5 ft 5 in Weight 51.256 kg Height 5 ft 5 in Weight 51.256 kg Vital Signs Temperature 98.8 F 11/27/23 09:49 Pulse Rate 89 11/27/23 09:49 Respiratory Rate 15 11/27/23 09:49 Blood Pressure 106/65 11/27/23 09:49 Pulse Oximetry 100 11/27/23 09:49 Oxygen Delivery Method Room Air 11/27/23 09:49 Temperature 98.8 F 11/27/23 09:49 Pulse Rate 89 11/27/23 09:49 Respiratory Rate 15 11/27/23 09:49 Blood Pressure 106/65 11/27/23 09:49 Pulse Oximetry 100 11/27/23 09:49 Oxygen Delivery Method Room Air 11/27/23 09:49 Airway Mallampati Class: I TM Dist: >3cm Neck ROM: Full Loose/Missing/Broken Teeth: No (patient denies any loose or broken teeth) Heart: S1S2 Lungs: CTAB Assessment and Plan Assessment Anesthesia Assessment: Anesthesia Plan Discussed and Chart Reviewed Final Anesthetic Review Family History of Problems with Anesthesia: No History of Problems with Anesthesia: No NPO: Yes ASA Class: II Final Preanesthetic Review: No Changes in Pt Med Stat, Meds/Allgs Chart Reviewed, Consent Obtained/Reviewed and Anes Risks/Benef Reviewed Patient Risk: Low Procedure Risk: Low Anesthetic Plan Anesthetic Plan: GA and Agree w/ Assess. and Plan Disposition: Standard PACU
--- NOTE | 2023-11-27 12:52 | MHC.SHP ---
Pre-Procedural Eval Section A - 24 Hr Update-Section A only Date of Service: 11/27/23 The patient is an INPATIENT: No Changes since office visit: No Cold of Flu in the past 2 weeks, No New Medical Problems, No Changes in Medication and No Patient answered all questions The patient has been examined within 24 hours of the surgical procedure. The History & Physical has been completed within 30 days and I have reviewed it.: Yes Section B - Complete if H&P > 30 days Chief Complaint: Calculus of bile duct without cholangitis or bennett Allergies: Allergies Allergy/AdvReac Type Severity Reaction Status Date / Time pomegranate [POMEGRANATE] Allergy Mild RASH Verified 11/27/23 09:46 Seasonal Allergies Allergy Unknown Unknown Verified 11/27/23 09:46 Review of Systems Sugical H&P ROS: Negative: Constitution, Cardiovascular, Respiratory, Neurological, Psychiatric, Hem-Onc, Allergic/Immunologic, Gastrointestinal, Genitourinary, Musculoskeletal, Integumentary, Endocrine and Eyes/Ears/Nose/Throat Exam Surgical H&P Exam: Normal: HEENT, Normal: Heart, Normal: Lungs, Normal: Extremities, Normal: Abdomen, Normal: Skin and Normal: Neurological Plan Diagnosis/Plan: Unchanged I have reviewed the history and physical and performed a pertinent physical examination on my patient. No changes have occurred unless specified. Time Spent With Patient Time: Total time managing care of this patient today ____ minutes.
--- NOTE | 2023-11-27 14:37 | P.OP_ITS ---
Operative Note Operative Note Date of Service: 11/27/23 Narrative: Preoperative diagnosis: [] Symptomatic gallbladder Postop diagnosis: [] The same Procedure [] laparoscopic cholecystectomy Surgeon: [] [employer] Supervisor: [] Type of Anesthesia: [] General Indication for surgery: [] Gallbladder with omental adhesions to it. Findings: [] Patient brought to the operating room, placed on operative table in supine position, after an adequate level of general anesthesia was induced, the patient's abdomen was prepped and draped in usual sterile fashion. Patient had a very thin scaphoid abdomen. Using a supraumbilical curvilinear incision, Kumar technique was used to insufflate the abdominal cavity to 15 mm of CO2. Upper midline and right subcostal ports were placed under direct laparoscopic view, and the patient placed in reverse Trendelenburg position, and tilted to th e left. Findings were as noted above. Gallbladder was grasped using laparoscopic graspers, and retracted superiorly and laterally. Omental adhesions were swept off the gallbladder with the hilum was approached. Common bile duct was identified and preserved throughout the procedure. Cystic artery and cystic duct were each identified, circumferentially skeletonized, each traced directly into the gallbladder, and critical view obtained. Each was clipped proximally x2, distally x1, and transected. Gallbladder was then cauterized from the gallbladder fossa using Bovie. Specimen was placed in an Endo-Catch bag, a retrieved through the umbilical port. Abdominal cavity was copiously irrigated, and secured hemostasis. All ports were removed under direct laparoscopic view. Wounds were closed in the following manner; umbilical wound has fascia reapproximated using interrupted 0 Vicryl sutures. Skin wounds were closed in subcuticular 4-0 Vicryl sutures followed by Steri-Strips and sterile dressings. Wounds were infiltrated 0.5% Marcaine at completion. Sponge, needle, and instrument counts reported correct. Patient tolerated the procedure well and emerged from anesthesia stable condition. EBL minimal
[2023-11-27] MEDS: oxyCODONE HCl Immed Release 5 MG TABLET PO (15:05)
== END 2023-11-27 16:31 | disposition home or self-care (01) ==
PROVIDERS: PCP Internal Medicine; Visit Provider Surgery
PROC: 0FT44ZZ Resection of Gallbladder, Percutaneous Endoscopic Approach (ICD-10-PCS; CPT 47562; principal; 2023-11-27 11:30)
DX: K81.1 Chronic cholecystitis (principal); K82.8 Other specified diseases of gallbladder; K21.9 Gastro-esophageal reflux disease without esophagitis; J45.909 Unspecified asthma, uncomplicated; D50.9 Iron deficiency anemia, unspecified; J30.2 Other seasonal allergic rhinitis; Z79.899 Other long term (current) drug therapy
CPT/HCPCS: 47562; 88304; J0131; J0690; J1100; J2250; J2371; J2405; J2704; J2795; J3010

== ENCOUNTER → 2023-11-27 09:05 | Outpatient (BNV) | payer OTHER, SELFPAY | PROVIDERS: PCP Internal Medicine; Visit Provider Surgery | DX: K80.20 Calculus of gallbladder without cholecystitis without obstruction (principal) | CPT/HCPCS: 47562 ==

== ENCOUNTER 2023-12-08 08:46 | Outpatient (AMB) | payer OTHER, SELFPAY ==
[2023-12-08 08:48] VITALS: BP 100/64; PULSE 50; O2SAT 98; BMI 19.1
--- NOTE | 2023-12-08 08:48 | MHC.PC.OV ---
Vital Signs 12/08/23 08:48 Height 5 ft 5 in Weight 115 lb 0.4 oz BMI 19.1 BP 100/64 Blood Pressure Location Lt brachial Position Sitting Pulse 50 Pulse Source Pulse Oximeter Pulse Oximetry (%) 98 Oxygen Delivery Method Room Air Intake Visit Reasons: Anxiety and depression, underweight, GERD Intake Note: Patient is here to follow up Intraoperative Neuro Tech Required: No Allergies pomegranate [POMEGRANATE] Allergy (Mild, Verified 12/08/23 08:49) RASH Seasonal Allergies Allergy (Unknown, Verified 12/08/23 08:49) Unknown Medication List - Last Reconciled 12/08/23 by Viridiana Garcia MD ascorbic acid (vitamin C) 500 mg PO .QD 90 days biotin 1 mg PO DAILY [BOOST HIGH PROTEIN As directed] [BOOST to take BID weight loss , 10 lbs in the past 6 month, BMI at 17.4 on 05/2023 and Anemia] calcium carbonate 500 mg PO DAILY famotidine (Pepcid) 20 mg PO BEDTIME PRN ferrous sulfate (Feosol) 325 mg PO DAILY 90 days fexofenadine (Elyssa Allergy) 180 mg PO DAILY fluticasone propionate 50 mcg/actuation (Flonase Allergy Relief) 2 sprays intranasal DAILY folic acid 1 mg PO DAILY hydrocodone-acetaminophen 5-325 mg 1 tab PO Q4-6H PRN multivitamin 1 tab PO DAILY omega-3 fatty acids (Fish Oil Concentrate) 1,000 mg PO DAILY omeprazole 20 mg PO DAILY PRN terconazole 0.8% 1 appful vaginal BEDTIME 3 days tranexamic acid 1,300 mg PO TID PRN Tobacco use date assessed: 12/08/23 Dental Screening Dental Screen Date: 09/24/23 HPI Anxiety and depression, underweight, GERD HPI Details 33-year-old female with cholelithiasis GERD generalized anxiety disorder last seen in August 2023. Review of the notes in Nov 27 2023 had cholecystectomy for chronic cholecystitis patient has also followed up with Gastroenterology on omeprazole and famotidine FOR[facility]LY [facility], [facility] Medical History (Updated 12/08/23 @ 09:08 by Viridiana Garcia MD) RUQ abdominal pain Cholelithiasis Epigastric abdominal pain Abnormal uterine bleeding (AUB) Dysfunctional uterine bleeding Well woman exam ZULEMA II (cervical intraepithelial neoplasia II) Acute vaginitis Toe fracture, left Iron deficiency anemia Ulnar neuropathy Left renal stone Vitamin B12 deficiency Dysplasia of cervix, low grade (ZULEMA 1) GERD (gastroesophageal reflux disease) Asthma Vitamin D deficiency Surgical History (Updated 12/02/23 @ 08:28 by Viridiana Garcia MD) History of cholecystectomy History of esophagogastroduodenoscopy (EGD) H/O LEEP History of tubal ligation History of wisdom tooth extraction History of tonsillectomy Family History Father CVD (cardiovascular disease) Myocardial infarction Mother Hodgkin lymphoma Colon cancer Lung cancer Brother Leukemia Colon cancer Maternal Grandmother Diabetes Social History Housing: Apartment Alcohol intake: current Alcohol intake frequency: holidays/special occasions only Comment: counts correct Patient Tobacco Use Status: Never used Tobacco e-Cigarette/Vaping Use: Never Used Second Hand Smoke Exposure: No service: No Current occupational status: disabled Gender identity: Female Cognitive needs: No Hearing needs: No Vision needs: Yes Female Reproductive History Menstrual Age of Menarche: 13 Questionnaire PHQ-9 Over the last 2 weeks, how often have you been bothered by any of the following problems? 1. Little interest or pleasure in doing things: not at all 2. Feeling down, depressed, or hopeless: not at all 3. Trouble falling or staying asleep, or sleeping too much: not at all 4. Feeling tired or having little energy: not at all 5. Poor appetite or overeating: not at all 6. Feeling bad about yourself - or that you are a failure or have let yourself or your family down: not at all 7. Trouble concentrating on things, such as reading the newspaper or watching television: not at all 8. Moving or speaking so slowly that other people could have noticed. Or the opposite - being so fidgety or restless that you have been moving around a lot more than usual: not at all 9. Thoughts that you would be better off or of hurting yourself in some way: not at all Total score: 0 Depression Screening Interpretation: Negative Depression Screening Done: Yes Source: Developed by Drs. Sudeep Mckeon, Aura Bradley, Jatin Quiles and colleagues, with an educational binta from [employer]. Thrive Questionnaire Date Thrive assessed: 12/08/23 I am a: Patient What is your living situation today?: I have a steady place to live Within the past 12 months, did the food you bought not last and you didn't have the money to get more?: Never true Within the past 12 months, did you worry whether your food would run out before you got money to buy more?: Never true Do you have trouble paying for medicines?: No Do you have trouble getting transportation to medical appointments?: No Do you have trouble paying your heating and electricity bill?: No Do you have trouble taking care of your child, family member or friend?: No Do you have trouble with day-to-day activities such as bathing, preparing meals, shopping, managing finances, etc.?: No Are you currently unemployed and looking for a job?: No Are you interested in more education?: No Please select the resources that you would like help with: None THRIVE Score: 0 AUDIT C Alcohol Use Questionnaire (AUDIT-C) 1. How often do you have a drink containing alcohol?: Never 3. How often do you have six or more drinks on one occasion?: Never Total Score: 0 ERIK-7 AMB Questionnaire ERIK-7 Date ERIK - 7 assessed: 12/08/23 Feeling nervous, anxious, or on edge: 0 = Not at all Not being able to stop or control worryin = Not at all Worrying too much about different things: 0 = Not at all Trouble relaxin = Not at all Being so restless that it is hard to sit still: 0 = Not at all Becoming easily annoyed or irritable: 0 = Not at all Feeling afraid as if something awful might happen: 0 = Not at all Total ERIK-7 score (0-4 normal; 5-9 mild; 10-14 moderate; 15-21 severe): 0 Source: Developed by Drs. Sudeep Mckeon, Aura Bradley, Jatin Quiles and colleagues, with an educational binta from [employer]. ERIK-7 Assessment Billing ERIK-7 Assessment Tool: ERIK-7 Assessment 83186 Physical exam (Primary Care) Vital Signs: Last Vital Signs Pulse 50 12/08/23 08:48 BP 100/64 12/08/23 08:48 Pulse Ox 98 12/08/23 08:48 Oxygen Delivery Method Room Air 12/08/23 08:48 BMI result Body Mass Index 19.1 Tobacco/Smoking Status: Tobacco use Status Tobacco use date assessed 12/08/23 12/08/23 08:50 Patient Tobacco Use Status Never used Tobacco 12/08/23 08:50 e-Cigarette/Vaping Use Never Used 12/08/23 08:50 PHQ-9: PHQ-9 Score PHQ-9: Total score 0 12/08/23 09:28 Depression Screening Interpretation: Negative Thrive Assessment: Date of Thrive Assessment Date Thrive assessed 12/08/23 12/08/23 08:50 Const General: alert; No acute distress Eyes Conjunctivae: conjunctivae normal Resp Auscultation: clear to auscultation bilaterally Cardio Rate: regular rate Rhythm: regular rhythm GI Inspection: Yes normal to inspection Extrem General: Yes normal to inspection and No edema Assessment and Plan Assessment & Plan (1) Cholelithiases: Comment: 03/2022, 05/2023 cholecystectomy November 2023 Code(s): K80.20 - Calculus of gallbladder without cholecystitis without obstruction Qualifiers: Biliary obstruction: without biliary obstruction Cholecystitis presence: without cholecystitis Cholelithiasis location: gallbladder Qualified Code(s): K80.20 - Calculus of gallbladder without cholecystitis without obstruction Plan: Cholecystectomy November 2023 advised low-fat diet (2) GERD (gastroesophageal reflux disease): Code(s): K21.9 - Gastro-esophageal reflux disease without esophagitis Qualifiers: Esophagitis presence: without esophagitis Qualified Code(s): K21.9 - Gastro-esophageal reflux disease without esophagitis Plan: Avoid the foods that causes that usually spicy foods, tomato products, juices, coffee, soda and foods that your sensitive to. After eating do not lie down, allow 3-4 hours before in lie down. And keep the head of bed above 30 degrees to avoid the acid from going up.. Patient has followed up with Gastroenterology and has been placed on famotidine and omeprazole (3) Generalized anxiety disorder: Comment: Insurance provided counseling(08/2023) every 2 weeks Code(s): F41.1 - Generalized anxiety disorder Plan: Continue with present therapy- and declined new med (4) Anemia: Code(s): D64.9 - Anemia, unspecified Plan: Presently on iron and vitamin-C (5) Family history of colon cancer: Code(s): Z80.0 - Family history of malignant neoplasm of digestive organs Plan: colon test scheduled for 04/2024 (6) Menorrhagia: Code(s): N92.0 - Excessive and frequent menstruation with regular cycle Plan: LMP 11/15/2023- 6 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, 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- seeing gynecology Orders: Orders Syphilis Screen 2 Months Loreneli O Po, N76.0 - Acute vaginitis CT NG by PCR 2 Months Lorenver O Po, N76.0 - Acute vaginitis HIV Ab/Ag 2 Months Lorenver O Po, N76.0 - Acute vaginitis Hepatitis B,C Profile 2 Months Lorkraen O Po, N76.0 - Acute vaginitis, R79.89 - Other specified abnormal findings of blood chemistry Medications: Changed From famotidine (Pepcid) 20 mg PO BEDTIME 30 tabs 3RF K21.9 - Gastro-esophageal reflux disease without esophagitis To famotidine (Pepcid) 20 mg PO BEDTIME PRN gerd K21.9 - Gastro-esophageal reflux disease without esophagitis LUISITO Angel-BC From omeprazole 20 mg PO DAILY 90 caps 1RF K21.9 - Gastro-esophageal reflux disease without esophagitis To omeprazole 20 mg PO DAILY PRN K21.9 - Gastro-esophageal reflux disease without esophagitis LUISITO Angel-BC From tranexamic acid Take 2 tablets 3 times a day starting the 1st day of menstrual cycle up to 3-5 days 1,300 mg (2 x 650 mg) PO TID 30 tabs 3RF To tranexamic acid Take 2 tablets 3 times a day starting the 1st day of menstrual cycle up to 3-5 days 1,300 mg PO TID PRN menstrual pain Jony Mazariegos MD Refilled fexofenadine (Elyssa Allergy) 180 mg PO DAILY 90 tabs 0RF Loreneli O Po, Coding Level of Care Code Est Pt Level 4 (80553) Diagnoses Calculus of gallbladder without cholecystitis without obstruction K80.20 Biliary obstruction: without biliary obstruction Cholecystitis presence: without cholecystitis Cholelithiasis location: gallbladder Gastroesophageal reflux disease without esophagitis K21.9 Esophagitis presence: without esophagitis Generalized anxiety disorder F41.1 Anemia D64.9 Family history of colon cancer Z80.0 Menorrhagia N92.0 Additional Codes ERIK-7 Assessment Billing - ERIK-7 Assessment Tool: ERIK-7 Assessment [id number] ([id number])
== END 2023-12-08 09:52 | disposition home or self-care (01) ==
PROVIDERS: PCP Internal Medicine; Visit Provider Internal Medicine
DX: K80.20 Calculus of gallbladder without cholecystitis without obstruction (principal); K21.9 Gastro-esophageal reflux disease without esophagitis; F41.1 Generalized anxiety disorder; D64.9 Anemia, unspecified; Z80.0 Family history of malignant neoplasm of digestive organs; N92.0 Excessive and frequent menstruation with regular cycle
CPT/HCPCS: 99214

== ENCOUNTER 2023-12-08 09:55 | Outpatient (AMB) | payer OTHER, SELFPAY ==
--- NOTE | 2023-12-08 09:57 | MHC.OFFVIS ---
Intake Visit Reasons: S/P lap bennett Intake Note: Patient here s/p lap bennett. Reports incisions healing well. Patient c/o: pain, still taking rx pain meds. SX: 11-27-23. Clinical Dental Technician Required: No Accompanied by: Self / Same As Patient Allergies pomegranate [POMEGRANATE] Allergy (Mild, Verified 12/08/23 09:59) RASH Seasonal Allergies Allergy (Unknown, Verified 12/08/23 09:59) Unknown HPI Comments Details: Patient presents for follow-up status post laparoscopic cholecystectomy. She has incisional discomfort which is improving. She has tolerating a diet. Having regular bowel habits. She is increasing her activity level [facility] Medical History RUQ abdominal pain Cholelithiasis Epigastric abdominal pain Abnormal uterine bleeding (AUB) Dysfunctional uterine bleeding Well woman exam ZULEMA II (cervical intraepithelial neoplasia II) Acute vaginitis Toe fracture, left Iron deficiency anemia Ulnar neuropathy Left renal stone Vitamin B12 deficiency Dysplasia of cervix, low grade (ZULEMA 1) GERD (gastroesophageal reflux disease) Asthma Vitamin D deficiency Surgical History History of cholecystectomy History of esophagogastroduodenoscopy (EGD) H/O LEEP History of tubal ligation History of wisdom tooth extraction History of tonsillectomy Family History Father CVD (cardiovascular disease) Myocardial infarction Mother Hodgkin lymphoma Colon cancer Lung cancer Brother Leukemia Colon cancer Maternal Grandmother Diabetes Social History Housing: Apartment Alcohol intake: current Alcohol intake frequency: holidays/special occasions only Comment: counts correct Patient Tobacco Use Status: Never used Tobacco e-Cigarette/Vaping Use: Never Used Second Hand Smoke Exposure: No service: No Current occupational status: disabled Gender identity: Female Cognitive needs: No Hearing needs: No Vision needs: Yes Female Reproductive History Menstrual Age of Menarche: 13 Physical Exam Eyes Other: Anicteric GI Other: Abdomen is soft all wounds clean dry and intact healing uneventfully Assessment & Plan Assessment & Plan (1) Status post laparoscopic cholecystectomy: Code(s): Z90.49 - Acquired absence of other specified parts of digestive tract Category: Medical Plan Patient has been given local instructions, including avoiding strenuous activities and axillary weeks time, and we will otherwise follow-up p.r.n.. All questions answered. Coding Level of Care Code Global (09609) Diagnoses Status post laparoscopic cholecystectomy Z90.49
== END 2023-12-08 10:03 | disposition home or self-care (01) ==
PROVIDERS: PCP Internal Medicine; Visit Provider Surgery
DX: Z90.49 Acquired absence of other specified parts of digestive tract (principal)
CPT/HCPCS: 99024

== ENCOUNTER → 2023-12-08 09:55 | Outpatient (BNVA) | payer OTHER, SELFPAY | PROVIDERS: PCP Internal Medicine; Visit Provider Surgery | DX: Z90.49 Acquired absence of other specified parts of digestive tract (principal) | CPT/HCPCS: 99212 ==

== ENCOUNTER 2023-12-08 10:06 | Outpatient (REF) | payer OTHER, SELFPAY ==
[2023-12-08 11:29] LABS: HBS Num1 1.36 mIU/mL (0-7.99); HBc Num1 0.06 S/CO (0.00-0.79); HBsAGNum1 0.32 S/CO (0.00-0.99); HIV AB/AG Nonreactive (Nonreactive); HIV Num 1 0.04 S/CO (0.00-0.99); Hepatitis B Core Antibody Nonreactive (Nonreactive); Hepatitis B Surface Antigen Negative (Negative); ~HepC Num1 0.09 S/CO (0.00-0.79); ~Hepatitis B Surface Antibody NONREACTIVE (Nonreactive); ~Hepatitis C Antibody Nonreactive (Nonreactive)
[2023-12-08 11:30] LABS: Syphilis Screen Nonreactive (Nonreactive)
== END 2023-12-08 10:07 | disposition home or self-care (01) ==
LOC: HO.LAB 10:06
PROVIDERS: PCP Internal Medicine; Visit Provider Internal Medicine
DX: N76.0 Acute vaginitis (principal); R79.89 Other specified abnormal findings of blood chemistry
CPT/HCPCS: 36415; 86704; 86706; 86780; 86803; 87340; 87389

== ENCOUNTER 2023-12-09 09:45 | Outpatient (AMB) | payer OTHER, SELFPAY ==
--- NOTE | 2023-12-09 10:23 | A.OFFVIS_ITS ---
VS Expanded 12/09/23 10:24 Height 5 ft 5 in Weight 115 lb 1.301 oz BMI 19.1 Intake Visit Reasons: Monitor weight/CONFIRMED Allergies pomegranate [POMEGRANATE] Allergy (Mild, Verified 12/18/23 14:34) RASH Seasonal Allergies Allergy (Unknown, Verified 12/18/23 14:34) Unknown Nutrition Presentation Details: Pt presents for MNT f/u for underweight Gradually working on having 3 meals per days choosing at least 2 out of 5 food groups in each meal (mostly starches and protein) Reports choosing juices, sodas as main beverages Reports taking iron supplements- uses pill box as reminder etoh: weekend smoking --- food frequency fruits: in juices mainly vegetables: starchy veg preferred dairy: 2 servings/d BS Monitoring Most Recent Diabetes Results: No Data to Display [facility] Medical History RUQ abdominal pain Cholelithiasis Epigastric abdominal pain Abnormal uterine bleeding (AUB) Dysfunctional uterine bleeding Well woman exam ZULEMA II (cervical intraepithelial neoplasia II) Acute vaginitis Toe fracture, left Iron deficiency anemia Ulnar neuropathy Left renal stone Vitamin B12 deficiency Dysplasia of cervix, low grade (ZULEMA 1) GERD (gastroesophageal reflux disease) Asthma Vitamin D deficiency Surgical History History of cholecystectomy History of esophagogastroduodenoscopy (EGD) H/O LEEP History of tubal ligation History of wisdom tooth extraction History of tonsillectomy Family History Father CVD (cardiovascular disease) Myocardial infarction Mother Hodgkin lymphoma Colon cancer Lung cancer Brother Leukemia Colon cancer Maternal Grandmother Diabetes Social History Housing: Apartment Alcohol intake: current Alcohol intake frequency: holidays/special occasions only Comment: counts correct Patient Tobacco Use Status: Never used Tobacco e-Cigarette/Vaping Use: Never Used Second Hand Smoke Exposure: No service: No Current occupational status: disabled Gender identity: Female Cognitive needs: No Hearing needs: No Vision needs: Yes Female Reproductive History Menstrual Age of Menarche: 13 Assessment & Plan Assessment & Plan (1) Abnormal weight loss: Code(s): R63.4 - Abnormal weight loss Category: Medical Plan: Recommend : Having nutrient dense beverages, working on meal routine, not skipping meals, physical activity wt 49 kg, (49.9 on 08/2023), 51 kg (10/2023), 52 kg (12/11) Est kcal needs : 7586-4148 seth per day + 500 to continue promoting weight gain (40% carb, 30% protein/fat) Est fluid needs as per 35 ml/d: 1700 Est prot per day as per 1.2 g/kg bw: 59 g/ Recommend fiber intake : 8-10 g per day and gradually increase to 25-28 g per day for women and 35-38 g for men or as tolerated Educated patient on: ( R = reviewed V = verbalizes understanding N/R = needs review N/A = not applicable * Food sources of protein and its role in anemia, muscle mass, GI function : R * Hydration with nutrient dense beverages : milk, juice, water with juice, coconut water , no non diet beverages due to lack of nutrition: R * Healthy plate method concept: R * increasing meals: having 6 small meals per day , preventing going more than 4 hours without eating during the day * relationship of alcohol and appetite, reinforce reduction and choosing nutrient dense beverages: R, V * Incorporating physical activity: R Patient Instructions: Continue working on having 3 meals per day incorporating at least 3 foods out of 5 food groups (starches and protein + milk/milkshakes or juices/fruit smoothies or vegetables and avocado/oil/olives (include monounsaturated fats) Engage in physical activity routine, walk 30 minutes at least 3 times a week Coding Level of Care Code Nutr Indiv Subseq (26500) Diagnoses Abnormal weight loss R63.4 Time Spent (min) 30
[2023-12-09 10:24] VITALS: BMI 19.1
== END 2023-12-09 10:44 | disposition home or self-care (01) ==
PROVIDERS: PCP Internal Medicine; Visit Provider Dietitian, Registered
DX: R63.4 Abnormal weight loss (principal)

== ENCOUNTER → 2023-12-09 09:45 | Outpatient (BNVA) | payer OTHER, SELFPAY | PROVIDERS: PCP Internal Medicine; Visit Provider Dietitian, Registered | DX: R63.4 Abnormal weight loss (principal) | CPT/HCPCS: 97803 ==

== ENCOUNTER 2023-12-18 14:24 | Outpatient (REF) | payer OTHER, SELFPAY ==
[2023-12-19 03:02] LABS: CT PCR NOT DETECTED (Not Detect.); NG PCR NOT DETECTED (Not Detect.)
[2023-12-19 11:07] LABS: Bacterial Vaginosis PCR NEGATIVE (Negative); Candida Group PCR NOT DETECTED (Not Detect); Candida glab krusei PCR NOT DETECTED (Not Detect); Trichomonas vaginalis PCR NOT DETECTED (Not Detect)
== END 2023-12-18 14:25 | disposition home or self-care (01) ==
LOC: HO.LNP 14:24
PROVIDERS: PCP Internal Medicine; Visit Provider Advanced Practice Midwife
DX: Z20.2 Contact with and (suspected) exposure to infections with a predominantly sexual mode of transmission (principal)
CPT/HCPCS: 0352U; 0353U; 99212

== ENCOUNTER 2023-12-18 14:24 | Outpatient (AMB) | payer OTHER, SELFPAY ==
[2023-12-18 14:33] VITALS: BP 100/62; BMI 19.6
--- NOTE | 2023-12-18 14:33 | A.OFFVIS_ITS ---
Vital Signs 12/18/23 14:33 Height 5 ft 5 in Weight 118 lb BMI 19.6 BP 100/62 Intake Visit Reasons: STD testing Intake Note: would like STD testing w bloodwork Pharmacy Technician Required: No Information Interpreted: non-clinical & clinical Head Grease Maker: Head Grease Maker Present (Suzan) Allergies pomegranate [POMEGRANATE] Allergy (Mild, Verified 12/18/23 14:34) RASH Seasonal Allergies Allergy (Unknown, Verified 12/18/23 14:34) Unknown Is last menstrual period known: Yes Last menstrual period: 12/13/23 Post menopausal: No HPI Comments Details: Patient is here today for an STD screening test. She denies any pelvic pain, vaginal discharge, odor, urinary symptoms. She has a history of bilateral tubal ligation and currently is on the tail end of her menstrual cycle. Intermittent condom use. [facility] Medical History RUQ abdominal pain Cholelithiasis Epigastric abdominal pain Abnormal uterine bleeding (AUB) Dysfunctional uterine bleeding Well woman exam ZULEMA II (cervical intraepithelial neoplasia II) Acute vaginitis Toe fracture, left Iron deficiency anemia Ulnar neuropathy Left renal stone Vitamin B12 deficiency Dysplasia of cervix, low grade (ZULEMA 1) GERD (gastroesophageal reflux disease) Asthma Vitamin D deficiency Surgical History History of cholecystectomy History of esophagogastroduodenoscopy (EGD) H/O LEEP History of tubal ligation History of wisdom tooth extraction History of tonsillectomy Family History Father CVD (cardiovascular disease) Myocardial infarction Mother Hodgkin lymphoma Colon cancer Lung cancer Brother Leukemia Colon cancer Maternal Grandmother Diabetes Social History Housing: Apartment Alcohol intake: current Alcohol intake frequency: holidays/special occasions only Comment: counts correct Patient Tobacco Use Status: Never used Tobacco e-Cigarette/Vaping Use: Never Used Second Hand Smoke Exposure: No service: No Current occupational status: disabled Gender identity: Female Cognitive needs: No Hearing needs: No Vision needs: Yes Female Reproductive History Menstrual Age of Menarche: 13 Date of last menstrual period: 12/13/23 control method: permanent sterilization Total pregnancies: 2 Full term: 2 Number of Living Children: 2 Date of last pap smear: 02/08/21 (negative) Review of Systems Const All systems reviewed & are unremarkable except as noted in HPI and below Physical Exam Vital Signs: Last Vital Signs BP 100/62 12/18/23 14:33 BMI result Body Mass Index 19.6 Const General: cooperative, healthy appearing and no acute distress Orientation/consciousness: patient oriented x3 GI Inspection: Yes normal to inspection Palpation (GI): Soft to palpation and Other GI palpation findings present (Nontender) Rectal Exam - Female: visual inspection normal General: Yes bladder normal to palpation External Female Exam: normal appearance of the urethra Speculum Exam - Vagina: normal appearance of the vagina, normal palpation, normal vaginal discharge and vaginal bleeding Speculum Exam - Cervix: normal appearance of the cervix and normal palpation Bimanual exam- vagina & uterus: normal bimanual exam, normal palpation, uterine size normal, bladder normal to palpation, normal palpation, uterine shape normal and non-tender Bimanual Exam- Adnexa, other: normal adnexae OB/external & speculum: vaginal bleeding Neuro General: patient oriented x3 Assessment & Plan Assessment & Plan (1) Possible exposure to STD: Code(s): Z20.2 - Contact with and (suspected) exposure to infections with a predominantly sexual mode of transmission Plan Discussed: Cultures today for BV panel and GC chlamydia, blood work plan at the lab for STD screening. Continue with condom use. Annual exam scheduled for 03/09/2024. All of her questions and concerns were addressed to the best of my ability and shared decision making. She is agreeable to the plan of care. This note is constructed using voice recognition software. While every effort has been made to ensure accuracy, commercial subcontractor errors may have been included. Orders: Orders HIV Ab/Ag Today Z20.2 - Contact with and (suspected) exposure to infections with a predominantly sexual mode of transmission Hepatitis C Antibody Reflex Today Z20.2 - Contact with and (suspected) exposure to infections with a predominantly sexual mode of transmission Hepatitis B Core Antibody Today Z20.2 - Contact with and (suspected) exposure to infections with a predominantly sexual mode of transmission Syphilis Screen Today Z20.2 - Contact with and (suspected) exposure to infections with a predominantly sexual mode of transmission Coding Level of Care Code Est Pt Level 3 (93336) Diagnoses Possible exposure to STD Z20.2
== END 2023-12-18 14:51 | disposition home or self-care (01) ==
PROVIDERS: PCP Internal Medicine; Visit Provider Advanced Practice Midwife
DX: Z20.2 Contact with and (suspected) exposure to infections with a predominantly sexual mode of transmission (principal)
CPT/HCPCS: 99213

== ENCOUNTER 2023-12-22 08:45 | Outpatient (REF) | payer OTHER, SELFPAY ==
[2023-12-22 11:06] LABS: Syphilis Screen Nonreactive (Nonreactive)
[2023-12-22 11:09] LABS: HBc Num1 0.08 S/CO (0.00-0.79); HIV AB/AG Nonreactive (Nonreactive); HIV Num 1 0.06 S/CO (0.00-0.99); Hepatitis B Core Antibody Nonreactive (Nonreactive); ~HepC Num1 0.11 S/CO (0.00-0.79); ~Hepatitis C Antibody Nonreactive (Nonreactive)
== END 2023-12-22 08:46 | disposition home or self-care (01) ==
LOC: HO.LAB 08:45
PROVIDERS: PCP Internal Medicine; Visit Provider Advanced Practice Midwife
DX: Z20.2 Contact with and (suspected) exposure to infections with a predominantly sexual mode of transmission (principal)
CPT/HCPCS: 36415; 86704; 86780; 86803; 87389

== ENCOUNTER 2024-01-27 08:47 | Outpatient (AMB) | payer OTHER, SELFPAY ==
[2024-01-27 08:54] VITALS: BP 98/54; PULSE 84; BMI 19.4
--- NOTE | 2024-01-27 08:54 | MHC.OFFVIS ---
Vital Signs 01/27/24 08:54 Height 5 ft 5 in Weight 116 lb 13.52 oz BMI 19.4 BP 98/54 L Blood Pressure Location Lt brachial Position Sitting Pulse 84 Intake Visit Reasons: follow up per yrn Intake Note: Meagan presents in the office as a follow up per Yrn. CC: she states that at the moment she is not having any concerns. Allergies pomegranate [POMEGRANATE] Allergy (Mild, Verified 01/27/24 08:55) RASH Seasonal Allergies Allergy (Unknown, Verified 01/27/24 08:55) Unknown HPI HPI follow up per yrn: Details: LAST VISIT: Recurrent biliary colic GERD (gastroesophageal reflux disease) Weight loss Depressed affect Plan Continue followups with medical service representative. Patient will continue avoiding dietary triggers. Increase fluid intake and activity to promote better bowel motility. Patient will return in 2 months to discuss prep before going for colonoscopy. Patient will call our office if she will have any GI concerning symptoms. She is agreeable to this plan and verbalizes understanding of instructions. She was given the opportunity to ask questions and all questions answered. ? TODAY'S VISIT: Patient is here today for follow-up and to discuss going for colonoscopy. History colonoscopies in the past. Patient has a positive family history of CRC patient's mother and brother were diagnosed with colon cancer. Patient's brother also was diagnosed with leukemia. Patient denies any melena, hematochezia. Currently patient has been having better appetite able to tolerate more variety of food. Gained 3 lb since last visit. Patient underwent cholecystectomy on November 26 and has been doing well since then. Patient denies dyspepsia, dysphagia or odynophagia currently is taking omeprazole in the morning and famotidine at bedtime. Reports that her symptoms are currently suppressed. Patient denies any nausea or vomiting. Moving her bowels without any issues. Patient has been following up with medical service representative and is seeing her next month. [facility] Medical History RUQ abdominal pain Cholelithiasis Epigastric abdominal pain Abnormal uterine bleeding (AUB) Dysfunctional uterine bleeding Well woman exam ZULEMA II (cervical intraepithelial neoplasia II) Acute vaginitis Toe fracture, left Iron deficiency anemia Ulnar neuropathy Left renal stone Vitamin B12 deficiency Dysplasia of cervix, low grade (ZULEMA 1) GERD (gastroesophageal reflux disease) Asthma Vitamin D deficiency Surgical History (Updated 01/27/24 @ 09:00 by MICHELLE Smiley) Hx of colonoscopy History of cholecystectomy History of esophagogastroduodenoscopy (EGD) H/O LEEP History of tubal ligation History of wisdom tooth extraction History of tonsillectomy Family History Father CVD (cardiovascular disease) Myocardial infarction Mother Hodgkin lymphoma Colon cancer Lung cancer Brother Leukemia Colon cancer Maternal Grandmother Diabetes Social History Housing: Apartment Alcohol intake: current Alcohol intake frequency: holidays/special occasions only Comment: counts correct Patient Tobacco Use Status: Never used Tobacco e-Cigarette/Vaping Use: Never Used Second Hand Smoke Exposure: No service: No Current occupational status: disabled Gender identity: Female Cognitive needs: No Hearing needs: No Vision needs: Yes Female Reproductive History Menstrual Age of Menarche: 13 Review of Systems Const Denies weight gain and Denies weight loss ENT Reports no additional complaints, Denies dysphagia and Denies odynophagia Card Reports no additional complaints Resp Reports no additional complaints GI Denies abdominal pain, Denies belching, Denies melena, Denies bloating, Denies change in bowel habits, Denies dysphagia, Denies excessive flatus, Denies dyspepsia, Denies heartburn, Denies diarrhea, Denies loose stools, Denies nausea, Denies odynophagia and Denies vomiting Musc Reports no additional complaints Neuro Reports no additional complaints Psych Reports no additional complaints Endo Reports no additional complaints Physical Exam Vital Signs: Last Vital Signs Pulse 84 01/27/24 08:54 BP 98/54 L 01/27/24 08:54 BMI result Body Mass Index 19.4 Const General: healthy appearing and no acute distress Orientation/consciousness: patient oriented x3 Resp Effort & Inspection: normal respiratory effort, able to speak in complete sentences, no tracheal deviation and symmetric chest movement Auscultation: clear to auscultation bilaterally Cardio Rate: regular rate GI Inspection: Yes normal to inspection and No distended Palpation (GI): Soft to palpation, not firm, nontender and No hepatosplenomegaly present Auscultation: normal bowel sounds General: Yes no CVA tenderness Back/Spine/Pelvis Back: no CVA tenderness Skin General skin exam: elasticity normal, turgor normal and dry skin Neuro General: patient oriented x3 Psych Appearance: grossly normal Mental Status: mental status grossly normal Assessment & Plan Assessment & Plan (1) Recurrent biliary colic: Code(s): K80.50 - Calculus of bile duct without cholangitis or cholecystitis without obstruction Category: Surgical (2) GERD (gastroesophageal reflux disease): Code(s): K21.9 - Gastro-esophageal reflux disease without esophagitis Category: Medical Qualifiers: Esophagitis presence: without esophagitis Qualified Code(s): K21.9 - Gastro-esophageal reflux disease without esophagitis (3) Weight loss: Code(s): R63.4 - Abnormal weight loss (4) Depressed affect: Code(s): R45.89 - Other symptoms and signs involving emotional state Plan Continue current therapy with omeprazole and famotidine. Patient is doing well after her cholecystectomy. Moving her bowels well without any issues. Patient will be sent for colonoscopy due to her recent weight loss and family history of colon cancer. What to expect before during and after procedure discussed with patient. Clear liquid diet and good bowel prep day before procedure discussed with patient. Procedure is scheduled already. Patient will be after the procedure, sooner on as basis. She is agreeable to this plan and verbalizes understanding of instructions. She was given the opportunity to ask questions and all questions answered. Thank you for allowing me to participate in her care Medications: New bisacodyl (Dulcolax (bisacodyl)) take 4 tabs at noon the day before your colonoscopy 20 mg (4 x 5 mg) PO ONCE 1 day 4 tabs 0RF Z12.11 - Encounter for screening for malignant neoplasm of colon polyethylene glycol 3350 (Miralax) As directed by gastroenterology department at [facility] 238 grams PO ONCE 238 grams 0RF Z12.11 - Encounter for screening for malignant neoplasm of colon Coding Level of Care Code Est Pt Level 3 (86647) Diagnoses Recurrent biliary colic K80.50 Gastroesophageal reflux disease without esophagitis K21.9 Esophagitis presence: without esophagitis Weight loss R63.4 Depressed affect R45.89 Time Spent (min) 25 Comment 15 minutes spent with patient and additional 10 minutes spent reviewing her records
== END 2024-01-27 09:31 | disposition home or self-care (01) ==
PROVIDERS: PCP Internal Medicine; Visit Provider Nurse Practitioner Family
DX: K80.50 Calculus of bile duct without cholangitis or cholecystitis without obstruction (principal); K21.9 Gastro-esophageal reflux disease without esophagitis; R63.4 Abnormal weight loss; R45.89 Other symptoms and signs involving emotional state
CPT/HCPCS: 99213

== ENCOUNTER → 2024-01-27 08:47 | Outpatient (BNVA) | payer OTHER, SELFPAY | PROVIDERS: PCP Internal Medicine; Visit Provider Nurse Practitioner Family | DX: K80.50 Calculus of bile duct without cholangitis or cholecystitis without obstruction (principal); K21.9 Gastro-esophageal reflux disease without esophagitis; R63.4 Abnormal weight loss; Z68.1 Body mass index [BMI] 19.9 or less, adult; R45.89 Other symptoms and signs involving emotional state | CPT/HCPCS: 99212 ==

== ENCOUNTER 2024-03-02 10:09 | Outpatient (AMB) | payer OTHER, SELFPAY ==
[2024-03-02 10:23] VITALS: BP 94/60; PULSE 76; O2SAT 100; BMI 19.8
--- NOTE | 2024-03-02 10:23 | A.OFFPC_ITS ---
Vital Signs 03/02/24 10:23 Height 5 ft 5 in Weight 119 lb 0.6 oz BMI 19.8 BP 94/60 Blood Pressure Location Lt brachial Position Sitting Pulse 76 Pulse Source Pulse Oximeter Pulse Oximetry (%) 100 Oxygen Delivery Method Room Air Intake Visit Reasons: Annual Exam Logistics Support Required: No Allergies pomegranate [POMEGRANATE] Allergy (Mild, Verified 03/02/24 10:24) RASH Seasonal Allergies Allergy (Unknown, Verified 03/02/24 10:24) Unknown Medication List - Last Reconciled 03/02/24 by Viridiana Garcia MD ascorbic acid (vitamin C) 500 mg PO DAILY biotin 1 mg PO DAILY bisacodyl (Dulcolax (bisacodyl)) 20 mg (4 x 5 mg) PO ONCE 1 day [BOOST HIGH PROTEIN As directed] [BOOST to take BID weight loss , 10 lbs in the past 6 month, BMI at 17.4 on 05/2023 and Anemia] calcium carbonate 500 mg PO DAILY famotidine (Pepcid) 20 mg PO BEDTIME PRN ferrous sulfate (Feosol) 325 mg PO DAILY 90 days fexofenadine (Elyssa Allergy) 180 mg PO DAILY fluticasone propionate 50 mcg/actuation (Flonase Allergy Relief) 2 sprays intranasal DAILY folic acid 1 mg PO DAILY multivitamin 1 tab PO DAILY omega-3 fatty acids (Fish Oil Concentrate) 1,000 mg PO DAILY omeprazole 20 mg PO DAILY PRN polyethylene glycol 3350 (Miralax) 238 grams PO ONCE tranexamic acid 1,300 mg PO TID PRN Tobacco use date assessed: 12/08/23 Dental Screening Dental Screen Date: 03/02/24 Did you have a dental visit in the last 12 months?: Yes Did you have a dental problem in the last 6 months where you did not have access to dental care?: No Was dental information given to patient?: Patient has dentist HPI Annual Exam HPI Details 33-year-old female with a history of KIA D, generalized anxiety disorder anemia coming in for physical exam last seen in November 2023. Patient is here for physical exam. Patient's colonoscopy is due this year due to family history of colorectal cancer.. Review of the notes January seen gastroenterology [facility] Medical History (Updated 03/02/24 @ 10:50 by Viridiana Garcia MD) Low back pain Potential exposure to STD Ganglion cyst of tendon sheath of right hand Allergic rhinitis Screening for STD (sexually transmitted disease) Cholelithiases Micturition frequency Vaginal itching RUQ abdominal pain Family history of colon cancer Well woman exam Cholelithiasis Epigastric abdominal pain Abnormal uterine bleeding (AUB) Dysfunctional uterine bleeding Well woman exam ZULEMA II (cervical intraepithelial neoplasia II) Acute vaginitis Toe fracture, left Iron deficiency anemia Ulnar neuropathy Left renal stone Vitamin B12 deficiency Dysplasia of cervix, low grade (ZULEMA 1) GERD (gastroesophageal reflux disease) Asthma Vitamin D deficiency Surgical History (Updated 03/02/24 @ 10:45 by Viridiana Garcia MD) Recurrent biliary colic Hx of colonoscopy History of cholecystectomy History of esophagogastroduodenoscopy (EGD) H/O LEEP History of tubal ligation History of wisdom tooth extraction History of tonsillectomy Family History Father CVD (cardiovascular disease) Myocardial infarction Mother Hodgkin lymphoma Colon cancer Lung cancer Brother Leukemia Colon cancer Maternal Grandmother Diabetes Social History (Updated 03/02/24 @ 10:52 by Viridiana Garcia MD) Housing: Apartment Alcohol intake: current Alcohol intake frequency: holidays/special occasions only Comment: once a week 2 cups Patient Tobacco Use Status: Never used Tobacco e-Cigarette/Vaping Use: Never Used Second Hand Smoke Exposure: No service: No Current occupational status: disabled Gender identity: Female Cognitive needs: No Hearing needs: No Vision needs: Yes Female Reproductive History Menstrual Age of Menarche: 13 Questionnaire Thrive Questionnaire Date Thrive assessed: 12/08/23 I am a: Patient What is your living situation today?: I have a steady place to live Within the past 12 months, did the food you bought not last and you didn't have the money to get more?: Never true Within the past 12 months, did you worry whether your food would run out before you got money to buy more?: Never true Do you have trouble paying for medicines?: No Do you have trouble getting transportation to medical appointments?: No Do you have trouble paying your heating and electricity bill?: No Do you have trouble taking care of your child, family member or friend?: No Do you have trouble with day-to-day activities such as bathing, preparing meals, shopping, managing finances, etc.?: No Are you currently unemployed and looking for a job?: No Are you interested in more education?: No Please select the resources that you would like help with: None THRIVE Score: 0 AUDIT C Alcohol Use Questionnaire (AUDIT-C) 1. How often do you have a drink containing alcohol?: Never 3. How often do you have six or more drinks on one occasion?: Never Total Score: 0 ERIK-7 AMB Questionnaire ERIK-7 Date ERIK - 7 assessed: 12/08/23 Feeling nervous, anxious, or on edge: 0 = Not at all Not being able to stop or control worryin = Not at all Worrying too much about different things: 0 = Not at all Trouble relaxin = Not at all Being so restless that it is hard to sit still: 0 = Not at all Becoming easily annoyed or irritable: 0 = Not at all Feeling afraid as if something awful might happen: 0 = Not at all Total ERIK-7 score (0-4 normal; 5-9 mild; 10-14 moderate; 15-21 severe): 0 Source: Developed by Drs. Sudeep Mckeon, Aura Bradley, Jatin Quiles and colleagues, with an educational binta from [employer]. ERIK-7 Assessment Billing ERIK-7 Assessment Tool: ERIK-7 Assessment 67875 Review of Systems Const Denies poor appetite and Denies weakness Eyes Denies no additional complaints ENT Reports Normal hearing present, Denies dizziness, Denies nasal congestion, Denies tinnitus and Denies sore throat Card Denies chest pain, Denies syncope, Denies rapid heart rate and Denies dyspnea Resp Denies cough and Denies dyspnea GI Denies change in stool character, Reports constipation, Denies diarrhea, Denies nausea and Denies vomiting Denies urinary frequency, Denies difficulty voiding and Denies dysuria Neuro Reports Normal hearing present, Denies confusion, Denies dizziness, Denies syncope and Denies weakness Psych Denies confusion Physical exam (Primary Care) Vital Signs: Last Vital Signs Pulse 76 03/02/24 10:23 BP 94/60 03/02/24 10:23 Pulse Ox 100 03/02/24 10:23 Oxygen Delivery Method Room Air 03/02/24 10:23 BMI result Body Mass Index 19.8 Tobacco/Smoking Status: Tobacco use Status Tobacco use date assessed 12/08/23 03/02/24 10:24 Patient Tobacco Use Status Never used Tobacco 03/02/24 10:24 e-Cigarette/Vaping Use Never Used 03/02/24 10:24 Thrive Assessment: Date of Thrive Assessment Date Thrive assessed 12/08/23 03/02/24 10:24 Const General: No confusion Orientation/consciousness: No confusion HENMT Head: Yes normocephalic Ears: external ears normal and TM's normal bilaterally Face and sinus: Yes normal facial exam Mouth: moist mucous membranes Throat: Yes tonsils normal Eyes Conjunctivae: conjunctivae normal Pupils: Equal, round and reactive pupils present and Pupil accommodation reflex normal Direct Ophthalmoscopy: normal light reflex Neck Neck: No lymphadenopathy Thyroid: Thyroid normal Chest Chest palpation & inspection: normal inspection of the chest Resp Effort & Inspection: normal respiratory effort and no audible wheezes Auscultation: clear to auscultation bilaterally, no crackles, no wheezes and lung sounds not diminished Cardio Rate: regular rate Rhythm: regular rhythm Peripheral pulses: radial pulses present and dorsalis pedis present GI Palpation (GI): no masses Auscultation: normal bowel sounds and normoactive bowel sounds Rectal Exam - Female: deferred Skin General skin exam: no rashes or lesions noted Rashes: no rashes Neuro General: No confusion Cranial nerves: Yes Equal, round and reactive pupils present and Yes Normal hearing present Cognition (Neuro): normal cognition Gait exam (Neuro): Normal gait present Motor exam (neuro): 5/5 motor strength present throughout Deep tendon reflexes (DTR's): Right brachioradialis reflex intensity grade: 2+, Left brachioradialis reflex intensity grade: 2+, Right patellar reflex intensity grade: 2+ and Left patellar reflex intensity grade: 2+ Extrem General: No edema Assessment and Plan Assessment & Plan (1) Annual physical exam: Code(s): Z00.00 - Encounter for general adult medical examination without abnormal findings Plan: Patient is advised to eat healthy, keep well hydrated, keep active and have adequate sleep. (2) Family history of colorectal cancer: Comment: Planned colon test 04/2024 Code(s): Z80.0 - Family history of malignant neoplasm of digestive organs Plan: Patient has an upcoming colonoscopy in April 2024 (3) Anemia: Code(s): D64.9 - Anemia, unspecified Plan: Continuing to monitor (4) Menorrhagia: Code(s): N92.0 - Excessive and frequent menstruation with regular cycle Plan: Continue to follow-up with gynecology (5) Generalized anxiety disorder: Comment: Insurance provided counseling(08/2023) every 2 weeks Code(s): F41.1 - Generalized anxiety disorder (6) GERD (gastroesophageal reflux disease): Code(s): K21.9 - Gastro-esophageal reflux disease without esophagitis Qualifiers: Esophagitis presence: without esophagitis Qualified Code(s): K21.9 - Gastro-esophageal reflux disease without esophagitis Plan: Avoid the foods that causes that usually spicy foods, tomato products, juices, coffee, soda and foods that your sensitive to. After eating do not lie down, allow 3-4 hours before in lie down. And keep the head of bed above 30 degrees to avoid the acid from going up. (7) Bile salt-induced diarrhea: Code(s): K90.89 - Other intestinal malabsorption Orders: Orders Complete Blood Count Auto Diff Today D64.9 - Anemia, unspecified IRON PROFILE Today D64.9 - Anemia, unspecified Lipid Panel Today D64.9 - Anemia, unspecified, E78.00 - Pure hypercholesterolemia, unspecified Vitamin B12 and Folate Today D64.9 - Anemia, unspecified Comprehensive Met. Panel Today D64.9 - Anemia, unspecified Free T4 (Free Thyroxine) Today D64.9 - Anemia, unspecified Thyroid Stimulating Hormone Today D64.9 - Anemia, unspecified Ferritin Today D64.9 - Anemia, unspecified Vitamin D 25-OH Total Today D64.9 - Anemia, unspecified Reticulocyte Count Today D64.9 - Anemia, unspecified Coding Level of Care Code Est Pt Prev Care 18-39y(03458) Diagnoses Annual physical exam Z00.00 Family history of colorectal cancer Z80.0 Anemia D64.9 Menorrhagia N92.0 Generalized anxiety disorder F41.1 Gastroesophageal reflux disease without esophagitis K21.9 Esophagitis presence: without esophagitis Bile salt-induced diarrhea K90.89 Additional Codes ERIK-7 Assessment Billing - ERIK-7 Assessment Tool: ERIK-7 Assessment 58300 ([id number])
== END 2024-03-02 11:05 | disposition home or self-care (01) ==
PROVIDERS: PCP Internal Medicine; Visit Provider Internal Medicine
DX: Z00.00 Encounter for general adult medical examination without abnormal findings (principal); Z80.0 Family history of malignant neoplasm of digestive organs; D64.9 Anemia, unspecified; N92.0 Excessive and frequent menstruation with regular cycle; F41.1 Generalized anxiety disorder; K21.9 Gastro-esophageal reflux disease without esophagitis; K90.89 Other intestinal malabsorption
CPT/HCPCS: 99395

== ENCOUNTER 2024-03-15 09:18 | Outpatient (REF) | payer OTHER, SELFPAY ==
[2024-03-15 09:47] LABS: MANUAL DIFF FLAG NO
[2024-03-15 10:07] LABS: Basophils Percent Auto 0.3 % (0-2); Eosinophils Absolute Auto 0.1 X10*3/uL (0.0-0.4); Eosinophils Percent Auto 0.8 % (0-4); Hematocrit 37.4 % (37.0-47.0); Hemoglobin 11.8 g/dl (12.0-16.0); Imm Gran Abs Auto 0.02 X10*3/uL (0.00-0.03); Imm Gran Pct Auto 0.3 % (0.0-0.4); Lymphocytes Absolute Auto 1.9 X10*3/uL (1.2-4.9); Lymphocytes Percent Auto 32.8 % (20-40); Mean Corpuscular HGB Conc 31.6 g/dl (31.0-35.0); Mean Corpuscular Hemoglobin 27.6 pg (27.0-33.0); Mean Corpuscular Volume 87.6 fL (80.0-98.0); Mean Platelet Volume 10.2 fL (9.4-12.3); Monocytes Absolute Auto 0.5 X10*3/uL (0.1-1.2); Monocytes Percent Auto 8.1 % (2-11); Neutrophils Absolute Auto 3.4 x10*3/uL (2.0-8.3); Neutrophils Percent Auto 57.7 % (45-73); Platelet Count 198 X10*3/uL (160-400); Red Blood Count 4.27 X10*6/uL (4.20-5.50); Red Cell Distribution Width 13.1 % (11.0-16.0); Retic HGB Equivalent 30.2 pg (30.0-35.0); Reticulocyte Percent 1.3 % (0.5-1.8); Reticulocytes Absolute 0.053 X10*6/uL (0.026-0.095); White Blood Count 5.9 X10*3/uL (4.8-10.8)
[2024-03-15 11:15] LABS: Alanine Aminotransferase 17 U/L (0-31); Albumin Level 3.9 g/dL (3.5-5.0); Alkaline Phosphatase 60 U/L (39-117); Anion Gap 9 (12-20); Aspartate Amino Transferase 14 U/L (5-31); Bilirubin Total 0.5 mg/dL (0.0-1.0); Blood Urea Nitrogen 7 mg/dL (9-16); Calcium 9.1 mg/dL (8.4-10.2); Carbon Dioxide 28 mmol/L (22-29); Chloride 106 mmol/L (96-108); Cholesterol 173 mg/dL (<200); Estimated Glomerular Filt Rate > 60; Ferritin 44 ng/mL (10-122); Free T4 (Free Thyroxine) 0.85 ng/dL (0.71-1.85); Glucose Random 86 mg/dL (60-115); HDL Cholesterol 67 mg/dL (>40); Iron 133 mcg/dL (30-160); LDL Cholesterol Calculated 91 mg/dL (<100); Percent Iron Saturation 47 % (15-50); Potassium 4.1 mmol/L (3.3-5.1); Sodium 139 mmol/L (135-145); Thyroid Stimulating Hormone 1.38 uIU/mL (0.32-4.0); Total Iron Binding Capacity 283 mcg/dL (228-428); Total Protein 6.2 g/dL (6.5-8.0); Triglycerides 77 mg/dL (<150); Unsaturated Iron Binding 150 ug/dL; Vitamin D 25-OH Total 35.6 ng/mL (>30)
[2024-03-15 11:45] LABS: Vitamin B12 487 pg/mL (200-900)
== END 2024-03-15 09:19 | disposition home or self-care (01) ==
LOC: HO.LAB 09:18
PROVIDERS: PCP Internal Medicine; Visit Provider Internal Medicine
DX: D64.9 Anemia, unspecified (principal); E78.00 Pure hypercholesterolemia, unspecified
CPT/HCPCS: 36415; 80053; 80061; 82306; 82607; 82728; 82746; 83540; 84439; 84443; 85025; 85045

== ENCOUNTER 2024-04-27 09:30 | Outpatient (AMB) | payer OTHER, SELFPAY ==
--- NOTE | 2024-04-27 09:41 | A.OFFVIS_ITS ---
VS Expanded 04/27/24 09:41 Height 5 ft 5 in Weight 120 lb 3 oz BMI 20.0 Intake Visit Reasons: Monitor weight/LVM Allergies pomegranate [POMEGRANATE] Allergy (Mild, Verified 03/02/24 10:24) RASH Seasonal Allergies Allergy (Unknown, Verified 03/02/24 10:24) Unknown Nutrition Presentation Details: Pt presents for MNT flu for unintentional weight loss. Pt reports feeling well, having better appetite and choosing a variety of foods. Pt reports having boost once a day as a snack Typical meal B: chips and ice tea or peanut butter crackers, ice tea Lunch burrito/chips/guac, soda Dinner hot dogs mustard relish and cheese, water, soda or juice walking 20 minutes /day etoh 2-3 serving/wk BS Monitoring Most Recent Diabetes Results: Cholesterol 173 mg/dL (<200) 03/15/24 HDL Cholesterol 67 mg/dL (>40) 03/15/24 Triglycerides 77 mg/dL (<150) 03/15/24 Creatinine 0.74 mg/dL (0.5-1.4) 03/15/24 Blood Urea Nitrogen 7 mg/dL (9-16) L 03/15/24 Sodium 139 mmol/L (135-145) 03/15/24 Potassium 4.1 mmol/L (3.3-5.1) 03/15/24 Chloride 106 mmol/L (96-108) 03/15/24 Carbon Dioxide 28 mmol/L (22-29) 03/15/24 Calcium 9.1 mg/dL (8.4-10.2) 03/15/24 AST 14 U/L (5-31) 03/15/24 ALT 17 U/L (0-31) 03/15/24 Total Protein 6.2 g/dL (6.5-8.0) L 03/15/24 Albumin 3.9 g/dL (3.5-5.0) 03/15/24 [facility] Medical History (Updated 03/02/24 @ 10:50 by Viridiana Garcia MD) Low back pain Potential exposure to STD Ganglion cyst of tendon sheath of right hand Allergic rhinitis Screening for STD (sexually transmitted disease) Cholelithiases Micturition frequency Vaginal itching RUQ abdominal pain Family history of colon cancer Well woman exam Cholelithiasis Epigastric abdominal pain Abnormal uterine bleeding (AUB) Dysfunctional uterine bleeding Well woman exam ZULEMA II (cervical intraepithelial neoplasia II) Acute vaginitis Toe fracture, left Iron deficiency anemia Ulnar neuropathy Left renal stone Vitamin B12 deficiency Dysplasia of cervix, low grade (ZULEMA 1) GERD (gastroesophageal reflux disease) Asthma Vitamin D deficiency Surgical History (Updated 03/02/24 @ 10:45 by Viridiana Garcia MD) Recurrent biliary colic Hx of colonoscopy History of cholecystectomy History of esophagogastroduodenoscopy (EGD) H/O LEEP History of tubal ligation History of wisdom tooth extraction History of tonsillectomy Family History Father CVD (cardiovascular disease) Myocardial infarction Mother Hodgkin lymphoma Colon cancer Lung cancer Brother Leukemia Colon cancer Maternal Grandmother Diabetes Social History (Updated 03/02/24 @ 10:52 by Viridiana Garcia MD) Housing: Apartment Alcohol intake: current Alcohol intake frequency: holidays/special occasions only Comment: once a week 2 cups Patient Tobacco Use Status: Never used Tobacco e-Cigarette/Vaping Use: Never Used Second Hand Smoke Exposure: No service: No Current occupational status: disabled Gender identity: Female Cognitive needs: No Hearing needs: No Vision needs: Yes Female Reproductive History Menstrual Age of Menarche: 13 Assessment & Plan Assessment & Plan (1) Abnormal weight loss: Code(s): R63.4 - Abnormal weight loss Category: Medical Plan: Recommend : Having nutrient dense beverages, working on meal routine, not s kipping meals, physical activity wt 49 kg, (49.9 on 08/2023), 51 kg (10/2023), 52 kg (12/11), 54.5 (05/13) Est kcal needs : 0577-9992 seth per day + 500 to continue promoting weight gain , including nutrient dense foods (40% carb, 30% protein/fat) Est fluid needs as per 35 ml/d: 1700 Est prot per day as per 1.2 g/kg bw: 65 Recommend fiber intake : 8-10 g per day and gradually increase to 25-28 g per day for women and 35-38 g for men or as tolerated Educated patient on: ( R = reviewed V = verbalizes understanding N/R = needs review N/A = not applicable * Food sources of protein and its role in anemia, muscle mass, GI function : R * Hydration with nutrient dense beverages : milk, juice, water with juice, coconut water , no non diet beverages due to lack of nutrition: R * Healthy plate method concept: R * Nutrient dense beverages: R * Vitamins/mineral in foods ;R Patient Instructions: Choose fruit juices, milk in place of soda/juice drinks with meals Remember to include protein foods in your meals and iron rich foods (Beans, beef, eggs, poultry , oatmeals, raisins, ,spinach) trying a variety of foods Coding Level of Care Code Nutr Indiv Subseq (38215) Diagnoses Abnormal weight loss R63.4 Time Spent (min) 30
== END 2024-04-27 10:06 | disposition home or self-care (01) ==
PROVIDERS: PCP Internal Medicine; Visit Provider Dietitian, Registered
DX: R63.4 Abnormal weight loss (principal)

== ENCOUNTER → 2024-04-27 09:30 | Outpatient (BNVA) | payer OTHER, SELFPAY | PROVIDERS: PCP Internal Medicine; Visit Provider Dietitian, Registered | DX: R63.4 Abnormal weight loss (principal) | CPT/HCPCS: 97803 ==

== ENCOUNTER 2024-05-12 08:38 | Outpatient (AMB) | payer OTHER, SELFPAY ==
[2024-05-12 09:18] VITALS: BP 100/58; BMI 19.8
--- NOTE | 2024-05-12 09:18 | A.OFFVIS_ITS ---
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 No complaints. Last Pap smear was in 02/07 was negative [facility] Medical History (Updated 05/12/24 @ 09:27 by Jony Mazariegos MD) Well woman exam Low back pain Potential exposure to STD Ganglion cyst of tendon sheath of right hand Allergic rhinitis Screening for STD (sexually transmitted disease) Cholelithiases Micturition frequency Vaginal itching RUQ abdominal pain Family history of colon cancer Cholelithiasis Epigastric abdominal pain Abnormal uterine bleeding (AUB) Dysfunctional uterine bleeding Well woman exam ZULEMA II (cervical intraepithelial neoplasia II) Acute vaginitis Toe fracture, left Iron deficiency anemia Ulnar neuropathy Left renal stone Vitamin B12 deficiency Dysplasia of cervix, low grade (ZULEMA 1) GERD (gastroesophageal reflux disease) Asthma Vitamin D deficiency Surgical History Recurrent biliary colic Hx of colonoscopy History of cholecystectomy History of esophagogastroduodenoscopy (EGD) H/O LEEP History of tubal ligation History of wisdom tooth extraction History of tonsillectomy Family History Father CVD (cardiovascular disease) Myocardial infarction Mother Hodgkin lymphoma Colon cancer Lung cancer Brother Leukemia Colon cancer Maternal Grandmother Diabetes Social History Housing: Apartment Alcohol intake: current Alcohol intake frequency: holidays/special occasions only Comment: once a week 2 cups Patient Tobacco Use Status: Never used Tobacco e-Cigarette/Vaping Use: Never Used Second Hand Smoke Exposure: No service: No Current occupational status: disabled Gender identity: Female Cognitive needs: No Hearing needs: No Vision needs: Yes Female Reproductive History Menstrual Age of Menarche: 13 Date of last menstrual period: 04/23/24 control method: permanent sterilization Date of last pap smear: 02/08/21 Review of Systems Const All systems reviewed & are unremarkable except as noted in HPI and below Card Reports as per HPI Resp Reports as per HPI GI Reports as per HPI and Reports no additional complaints Reports as per HPI Physical Exam Vital Signs: Last Vital Signs BP 100/58 L 05/12/24 09:18 BMI result Body Mass Index 19.8 Const General: cooperative, healthy appearing and comfortable Chest Chest palpation & inspection: normal inspection of the chest and normal palpation of entire chest wall Breast/axilla inspection: normal inspection of the breasts and normal inspection of the axillae Breast/axilla palpation: normal palpation of the breasts, normal palpation of the axillae and no axillary lymphadenopathy Resp Effort & Inspection: normal respiratory effort Auscultation: clear to auscultation bilaterally Percussion: percussion normal Cardio Palpation: normal PMI Rate: regular rate Rhythm: regular rhythm Heart sounds: no murmurs and no rubs Peripheral pulses: Peripheral pulses 2+ throughout GI Inspection: Yes normal to inspection Palpation (GI): Soft to palpation, nontender, no guarding, not rigid and No hepatosplenomegaly present Percussion: Yes normal to percussion Auscultation: normal bowel sounds Rectal Exam - Female: deferred General: Yes bladder normal to palpation External Female Exam: No lesion Speculum Exam - Vagina: normal appearance of the vagina, normal palpation, normal vaginal discharge and not erythematous Speculum Exam - Cervix: normal appearance of the cervix and normal palpation Bimanual exam- vagina & uterus: normal bimanual exam, normal palpation, uterine size normal, bladder normal to palpation, consistency normal and normal pal pation Bimanual Exam- Adnexa, other: normal adnexae, no masses and no tenderness Assessment & Plan Assessment & Plan (1) Well woman exam: Code(s): Z01.419 - Encounter for gynecological examination (general) (routine) without abnormal findings Category: Medical Plan: Pap smear done. Counseled the patient about the recommended dietary allowance of 1000 mg of Calcium & 600 IU of vitamin D. The patient was instructed to perform monthly self-breast exams and to schedule an annual exam in a year; All questions answered and the patient verbalized understanding. Instructed the patient to schedule annual exam in a year Coding Level of Care Code Est Pt Prev Care 18-39y(32687) Diagnoses Well woman exam Z01.419
== END 2024-05-12 09:39 | disposition home or self-care (01) ==
PROVIDERS: PCP Internal Medicine; Visit Provider Obstetrics & Gynecology
DX: Z01.419 Encounter for gynecological examination (general) (routine) without abnormal findings (principal)
CPT/HCPCS: 99395

== ENCOUNTER 2024-05-12 08:38 | Outpatient (REF) | payer OTHER, SELFPAY ==
[2024-05-17 12:49] LABS: HPV mRNA E6/E7 Not Detected (Not Detected)
== END 2024-05-12 08:39 | disposition home or self-care (01) ==
LOC: HO.LNP 08:38
PROVIDERS: PCP Internal Medicine; Visit Provider Obstetrics & Gynecology
DX: Z01.419 Encounter for gynecological examination (general) (routine) without abnormal findings (principal)
CPT/HCPCS: 87624; 88175

== ENCOUNTER 2024-08-16 12:45 | Outpatient (AMB) | payer OTHER, SELFPAY ==
--- NOTE | 2024-08-16 13:04 | MHC.OFFVIS ---
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 (Glory) Accompanied by: Self / Same As Patient Allergies pomegranate [POMEGRANATE] Allergy (Mild, Verified 08/16/24 13:05) RASH Seasonal Allergies Allergy (Unknown, Verified 08/16/24 13:05) Unknown HPI Comments Details: The patient is presenting complaining of vaginal discharge associated with vulvovaginal itching, foul odor, no other associated symptoms, or any other complaint [facility] Medical History Well woman exam Low back pain Potential exposure to STD Ganglion cyst of tendon sheath of right hand Allergic rhinitis Screening for STD (sexually transmitted disease) Cholelithiases Micturition frequency Vaginal itching RUQ abdominal pain Family history of colon cancer Cholelithiasis Epigastric abdominal pain Abnormal uterine bleeding (AUB) Dysfunctional uterine bleeding Well woman exam ZULEMA II (cervical intraepithelial neoplasia II) Acute vaginitis Toe fracture, left Iron deficiency anemia Ulnar neuropathy Left renal stone Vitamin B12 deficiency Dysplasia of cervix, low grade (ZULEMA 1) GERD (gastroesophageal reflux disease) Asthma Vitamin D deficiency Surgical History Recurrent biliary colic Hx of colonoscopy History of cholecystectomy History of esophagogastroduodenoscopy (EGD) H/O LEEP History of tubal ligation History of wisdom tooth extraction History of tonsillectomy Family History Father CVD (cardiovascular disease) Myocardial infarction Mother Hodgkin lymphoma Colon cancer Lung cancer Brother Leukemia Colon cancer Maternal Grandmother Diabetes Social History Housing: Apartment Alcohol intake: current Alcohol intake frequency: holidays/special occasions only Comment: once a week 2 cups Patient Tobacco Use Status: Never used Tobacco e-Cigarette/Vaping Use: Never Used Second Hand Smoke Exposure: No service: No Current occupational status: disabled Gender identity: Female Cognitive needs: No Hearing needs: No Vision needs: Yes Female Reproductive History Menstrual Age of Menarche: 13 Review of Systems Const All systems reviewed & are unremarkable except as noted in HPI and below Physical Exam General: Yes no CVA tenderness External Female Exam: normal external appearance and normal appearance of the urethra Speculum Exam - Vagina: normal appearance of the vagina, normal palpation, no lesions and no masses Speculum Exam - Cervix: normal appearance of the cervix, normal palpation, no lesions, no masses and nontender Bimanual exam- vagina & uterus: normal bimanual exam, normal palpation, uterine size normal, normal palpation, uterine shape normal, No Cervical tenderness present and non-tender Bimanual Exam- Adnexa, other: normal adnexae Back/Spine/Pelvis Back: no CVA tenderness Assessment & Plan Assessment & Plan (1) Vulvovaginitis: Comment: Mixed VVC with BV Code(s): N76.0 - Acute vaginitis Category: Medical Plan: GC and chlamydia cultures with BV panel taken. Per CDC recommendation, will screen for STI, HepBs Ag, HIV, RPR, Hep C Ab ordered. Will treat with Terazol 0.8% q.h.s. for 3 days with Flagyl 500 mg p.o. b.i.d. x 7 days, Instructions given to the patient to refrain from sexual activity or to use condoms consistently and correctly during the BV treatment regimen, not to douch, it might increase the risk for relapse, and to call if symptoms persist or recur. Medications: New terconazole 0.8% 1 appful vaginal BEDTIME 3 days 20 grams 0RF metronidazole 500 mg PO BID 7 days 14 tabs 0RF Coding Level of Care Code Est Pt Level 3 (65188) Diagnoses Vulvovaginitis N76.0
--- OUTSIDE RECORDS SUMMARY | 2024-08-16 17:23 | XMS_ITS | Clinical Summary ---
Author Organization [employer] [facility] Address [address] [place] [address] 7 [place] [address] Care Team Providers Care Ux Design Manager Name Role Phone Unavailable Primary Care Provider Unavailabl e Immunizations Name Administration Dates Next Due Moderna Covid-19 Vaccine 12+ 05/04/2021,04/06/20 21 Moderna Covid-19 Vaccine 6+ Bivalent 09/23/2022 Social History Tobacco Use Types Packs/Day Years Used Date Smoking Tobacco: Never Assessed Comments Unknown Sex and Gender Information Value Date Recorded Sex Assigned at Female 09/23/2022 9:13 AM EST Legal Sex Female 9:10 AM EST Gender Identity Female 09/23/2022 9:13 AM EST Sexual Orientation Straight 09/23/2022 9: 13 AM EST Plan of Treatment Health Maintenance Due Date Last Done Comments Depression Screening 1992 HIV Screening 1992 SDOH Screening 1992 Alcohol/Substance Use Screening 2004 Tobacco Screening 2004 Family Planning (PISQ) 2007 Hepatitis C Screening 2010 DTaP/Tdap/Td Vaccines (1 - Tdap) 2011 Hepatitis B Vaccines (1 of 3 - 19+ 3-dose series) 2011 Pap Smear 2013 Cervical Cancer Screening 2022 HPV/Cotest 2022 COVID-19 Vaccine ( - 2023-2 5 season) 2024 09/23/2022, 05/04/2021, 04/06/2021 Influenza Vaccine (#1) 2024 Zoster Vaccines (1 of 2) 2042 RSV Patients and Patients Aged 60 years or older (1 - 1-dose 75+ series) 2067 HIB Vaccines Aged Out No longer eligi ble based on patient's age to complete this topic HPV Vaccines Aged Out No longer eligi ble based on patient's age to complete this topic Hepatitis A Vaccines Aged Out No long er eligible based on patient's age to complete this topic IPV Vaccines Aged Out No longer eligi ble based on patient's age to complete this topic Meningococcal Vaccine Aged Out No amita heron eligible based on patient's age to complete this topic Pneumococcal Vaccine: Pediatrics (0 to 5 Years) and At-Risk Patients (6 to 64 Years) Aged Out No longer eligible b ased on patient's age to complete this topic RSV under 20 months Aged Out No longe r eligible based on patient's age to complete this topic Rotavirus Vaccines Aged Out No longer eligible based on patient's age to complete this topic Insurance [facility] STANDARD
== END 2024-08-16 14:11 | disposition home or self-care (01) ==
LOC: HO.HWS 12:45
PROVIDERS: PCP Internal Medicine; Visit Provider Obstetrics & Gynecology
DX: N76.0 Acute vaginitis (principal)
CPT/HCPCS: 99213

== ENCOUNTER 2024-08-16 12:45 | Outpatient (REF) | payer OTHER, SELFPAY ==
[2024-08-17 08:14] LABS: Syphilis Screen Nonreactive (Nonreactive)
[2024-08-17 08:37] LABS: HBsAGNum1 0.32 S/CO (0.00-0.99); HIV AB/AG Nonreactive (Nonreactive); HIV Num 1 0.07 S/CO (0.00-0.99); Hepatitis B Surface Antigen Negative (Negative); ~HepC Num1 0.07 S/CO (0.00-0.79); ~Hepatitis C Antibody Nonreactive (Nonreactive)
[2024-08-17 11:49] LABS: Bacterial Vaginosis PCR NEGATIVE (Negative); Candida Group PCR NOT DETECTED (Not Detect); Candida glab krusei PCR NOT DETECTED (Not Detect); Trichomonas vaginalis PCR NOT DETECTED (Not Detect)
[2024-08-17 12:20] LABS: CT PCR NOT DETECTED (Not Detect.); NG PCR NOT DETECTED (Not Detect.)
== END 2024-08-16 12:46 | disposition home or self-care (01) ==
LOC: HO.LAB 12:45
PROVIDERS: PCP Internal Medicine; Visit Provider Obstetrics & Gynecology
DX: Z01.419 Encounter for gynecological examination (general) (routine) without abnormal findings (principal); N76.0 Acute vaginitis; Z20.2 Contact with and (suspected) exposure to infections with a predominantly sexual mode of transmission
CPT/HCPCS: 36415; 81515; 86780; 86803; 87340; 87389; 87491; 87591; 99212

== ENCOUNTER 2024-08-16 14:49 | Outpatient (REF) | payer OTHER, SELFPAY ==
--- OUTSIDE RECORDS SUMMARY | 2024-08-16 19:08 | XMS_ITS | Clinical Summary ---
Author Organization [employer] [facility] Address [address] [place] [address] 7 [place] [address] Care Team Providers Care Water Chemist Name Role Phone Unavailable Primary Care Provider [...] patient's age to complete this topic Insurance [facility] STANDARD
== END 2024-08-16 14:50 | disposition home or self-care (01) ==
LOC: HO.LNP 14:49
PROVIDERS: Visit Provider Obstetrics & Gynecology
DX: Z13.89 Encounter for screening for other disorder (principal)

== ENCOUNTER 2024-09-01 09:05 | Outpatient (AMB) | payer OTHER, SELFPAY ==
[2024-09-01 09:27] VITALS: BP 104/62; PULSE 80; O2SAT 98; BMI 20.1
--- NOTE | 2024-09-01 09:27 | A.OFFPC_ITS ---
Vital Signs 09/01/24 09:27 Height 5 ft 5 in Weight 121 lb BMI 20.1 BP 104/62 Blood Pressure Location Lt brachial Position Sitting Pulse 80 Pulse Source Pulse Oximeter Pulse Oximetry (%) 98 Oxygen Delivery Method Room Air Intake Visit Reasons: 6 month follow up Allergies pomegranate [POMEGRANATE] Allergy (Mild, Verified 09/01/24 09:28) RASH Seasonal Allergies Allergy (Unknown, Verified 09/01/24 09:28) Unknown Medication List - Last Reconciled 09/01/24 by Viridiana Garcia MD ascorbic acid (vitamin C) 500 mg PO DAILY biotin 1 mg PO DAILY bisacodyl (Dulcolax (bisacodyl)) 20 mg (4 x 5 mg) PO ONCE 1 day [BOOST HIGH PROTEIN As directed] [BOOST to take BID weight loss , 10 lbs in the past 6 month, BMI at 17.4 on 05/2023 and Anemia] calcium carbonate 500 mg PO DAILY ferrous sulfate (Feosol) 325 mg PO DAILY 90 days fexofenadine (Elyssa Allergy) 180 mg PO DAILY fluticasone propionate 50 mcg/actuation 2 sprays intranasal DAILY folic acid 1 mg PO DAILY multivitamin 1 tab PO DAILY omega-3 fatty acids (Fish Oil Concentrate) 1,000 mg PO DAILY polyethylene glycol 3350 (Miralax) 238 grams PO ONCE terconazole 0.8% 1 appful vaginal BEDTIME 3 days tranexamic acid 1,300 mg (2 x 650 mg) PO TID PRN 90 days Tobacco use date assessed: 09/01/24 Dental Screening Dental Screen Date: 09/01/24 Did you have a dental visit in the last 12 months?: Yes Did you have a dental problem in the last 6 months where you did not have access to dental care?: No Was dental information given to patient?: Patient has dentist HPI 6 month follow up HPI Details The patient is a 34-year-old female presenting with a follow-up visit for multiple chronic conditions. She has a history of Gastroesophageal Reflux Disease (GERD), which is currently stable with existing management. The patient has been experiencing symptoms of Generalized Anxiety Disorder, for which ongoing management is indicated. She has a history of Nephrolithiasis, with no acute episodes noted recently. The patient had previous laboratory work done on March 15, which revealed mild anemia with hemoglobin at 11.8 g/dL and hematocrit at 37.4%. Other laboratory values, including platelet count, electrolytes, renal function, blood glucose, liver function tests, cholesterol, vitamin B12, vitamin D, and folic acid, were within normal limits. The patient also tested negative for syphilis and hepatitis B. Regular gynecological follow- up for vulvovaginitis is in place. The patient had a Pap smear conducted in April 2024. She is also advised to undergo a colonoscopy, which was supposed to be completed last year but remains pending. She has been consulting with a lobster man for weight management. [facility] Medical History Well woman exam Low back pain Potential exposure to STD Ganglion cyst of tendon sheath of right hand Allergic rhinitis Screening for STD (sexually transmitted disease) Cholelithiases Micturition frequency Vaginal itching RUQ abdominal pain Family history of colon cancer Cholelithiasis Epigastric abdominal pain Abnormal uterine bleeding (AUB) Dysfunctional uterine bleeding Well woman exam ZULEMA II (cervical intraepithelial neoplasia II) Acute vaginitis Toe fracture, left Iron deficiency anemia Ulnar neuropathy Left renal stone Vitamin B12 deficiency Dysplasia of cervix, low grade (ZULEMA 1) GERD (gastroesophageal reflux disease) Asthma Vitamin D deficiency Surgical History Recurrent biliary colic Hx of colonoscopy History of cholecystectomy History of esophagogastroduodenoscopy (EGD) H/O LEEP History of tubal ligation History of wisdom tooth extraction History of tonsillectomy Family History Father CVD (cardiovascular disease) Myocardial infarction Mother Hodgkin lymphoma Colon cancer Lung cancer Brother Leukemia Colon cancer Maternal Grandmother Diabetes Social History Housing: Apartment Alcohol intake: current Alcohol intake frequency: holidays/special occasions only Comment: once a week 2 cups Patient Tobacco Use Status: Never used Tobacco Tobacco use type: Cigarette e-Cigarette/Vaping Use: Never Used Second Hand Smoke Exposure: No service: No Current occupational status: disabled Gender identity: Female Cognitive needs: No Hearing needs: No Vision needs: Yes Female Reproductive History Menstrual Age of Menarche: 13 Questionnaire PHQ-9 Over the last 2 weeks, how often have you been bothered by any of the following problems? 1. Little interest or pleasure in doing things: not at all 2. Feeling down, depressed, or hopeless: not at all 3. Trouble falling or staying asleep, or sleeping too much: not at all 4. Feeling tired or having little energy: not at all 5. Poor appetite or overeating: not at all 6. Feeling bad about yourself - or that you are a failure or have let yourself or your family down: not at all 7. Trouble concentrating on things, such as reading the newspaper or watching television: not at all 8. Moving or speaking so slowly that other people could have noticed. Or the opposite - being so fidgety or restless that you have been moving around a lot more than usual: not at all 9. Thoughts that you would be better off or of hurting yourself in some way: not at all Total score: 0 Depression Screening Interpretation: Negative Depression Screening Done: Yes Source: Developed by Drs. Sudeep Mckeon, Aura Bradley, Jatin Quiles and colleagues, with an educational binta from [employer]. Thrive Questionnaire Date Thrive assessed: 09/01/24 I am a: Patient What is your living situation today?: I have a steady place to live Within the past 12 months, did the food you bought not last and you didn't have the money to get more?: Never true Within the past 12 months, did you worry whether your food would run out before you got money to buy more?: Never true Do you have trouble paying for medicines?: No Do you have trouble getting transportation to medical appointments?: No Do you have trouble paying your heating and electricity bill?: No Do you have trouble taking care of your child, family member or friend?: No Do you have trouble with day-to-day activities such as bathing, preparing meals, shopping, managing finances, etc.?: No Are you currently unemployed and looking for a job?: No Are you interested in more education?: No Please select the resources that you would like help with: None THRIVE Score: 0 AUDIT C Alcohol Use Questionnaire (AUDIT-C) 1. How often do you have a drink containing alcohol?: Never 3. How often do you have six or more drinks on one occasion?: Never Total Score: 0 ERIK-7 AMB Questionnaire ERIK-7 Date ERIK - 7 assessed: 09/01/24 Feeling nervous, anxious, or on edge: 0 = Not at all Not being able to stop or control worryin = Not at all Worrying too much about different things: 0 = Not at all Trouble relaxin = Not at all Being so restless that it is hard to sit still: 0 = Not at all Becoming easily annoyed or irritable: 0 = Not at all Feeling afraid as if something awful might happen: 0 = Not at all Total ERIK-7 score (0-4 normal; 5-9 mild; 10-14 moderate; 15-21 severe): 0 Source: Developed by Drs. Sudeep Mckeon, Aura Bradley, Jatin Quiles and colleagues, with an educational binta from [employer]. ERIK-7 Assessment Billing ERIK-7 Assessment Tool: ERIK-7 Assessment 03723 Physical exam (Primary Care) Vital Signs: Last Vital Signs Pulse 80 09/01/24 09:27 BP 104/62 09/01/24 09:27 Pulse Ox 98 09/01/24 09:27 Oxygen Delivery Method Room Air 09/01/24 09:27 BMI result Body Mass Index 20.1 Tobacco/Smoking Status: Tobacco use Status Tobacco use date assessed 09/01/24 09/01/24 09:29 Patient Tobacco Use Status Never used Tobacco 09/01/24 09:29 Tobacco use type Cigarette 09/01/24 09:29 e-Cigarette/Vaping Use Never Used 09/01/24 09:29 PHQ-9: PHQ-9 Score PHQ-9: Total score 0 09/01/24 09:45 Depression Screening Interpretation: Negative Thrive Assessment: Date of Thrive Assessment Date Thrive assessed 09/01/24 09/01/24 09:29 Const General: alert; No acute distress Eyes Conjunctivae: conjunctivae normal Resp Auscultation: clear to auscultation bilaterally Cardio Rate: regular rate Rhythm: regular rhythm GI Inspection: Yes normal to inspection Extrem General: Yes normal to inspection and No edema Office Procedures Flu Questionnaire Does the patient have a severe egg allergy?: No Does the patient have severe life threatening allergies?: No Does the patient have a fever or illness today?: No Has the patient ever had Guillain-[place] Syndrome?: No Has the patient ever had any past reaction to a flu shot?: No Immunizations Fluarix Triv [id number] (PF) 45 mcg (15 mcg x 3)/0.5 mL IM syringe Performing Provider: Viridiana Garcia MD [facility] Administered by: Emilia Drummond CMA on 09/01/24 09:57 Dose Route Admin Location Dispensed Lot Number Expiration Date NDC Division [employer] 0.5 mL IM Left Deltoid 0.5 mL [id number] 01/17/25 [id number] [employer] VIS Given Date VIS Provided VIS Publication Date 09/01/24 Single Vaccine 21 Eligibility Eligibility Date Funding Source Not [facility] Eligible 09/01/24 Private Coding Level of Care Code Est Pt Level 4 (09924) Diagnoses Family history of colorectal cancer Z80.0 Anemia D64.9 Gastroesophageal reflux disease without esophagitis K21.9 Esophagitis presence: without esophagitis Generalized anxiety disorder F41.1 Additional Codes ERIK-7 Assessment Billing - ERIK-7 Assessment Tool: ERIK-7 Assessment 66989 ([id number]) Assessment & Plan Assessment & Plan (1) Family history of colorectal cancer: Comment: Planned colon test 04/2024 Code(s): Z80.0 - Family history of malignant neoplasm of digestive organs Category: Medical Plan: Patient is reminded about the need for colonoscopy. (2) Anemia: Code(s): D64.9 - Anemia, unspecified Category: Medical Plan: Continuing to monitor, stable (3) GERD (gastroesophageal reflux disease): Code(s): K21.9 - Gastro-esophageal reflux disease without esophagitis Category: Medical Qualifiers: Esophagitis presence: without esophagitis Qualified Code(s): K21.9 - Gastro-esophageal reflux disease without esophagitis Plan: Avoid the foods that causes that usually spicy foods, tomato products, juices, coffee, soda and foods that your sensitive to. After eating do not lie down, allow 3-4 hours before in lie down. And keep the head of bed above 30 degrees to avoid the acid from going up. (4) Generalized anxiety disorder: Comment: Insurance provided counseling(08/2023) every 2 weeks Code(s): F41.1 - Generalized anxiety disorder Category: Medical Plan: Stable Plan - For Gastroesophageal Reflux Disease: Continue current management plan as symptoms are reported stable. Reinforce lifestyle modifications to aid in symptom management. - For Generalized Anxiety Disorder: Maintain current treatment approach. Encourage continued engagement with mental health support as indicated. - For Nephrolithiasis: Monitor for any signs of recurrence; maintain adequate hydration as a preventative measure. - For Vulvovaginitis: Ensure follow-up with gynecological services is continued for ongoing assessment and management. - For Mild Anemia: Observe and continue to monitor hemoglobin levels. No immediate intervention required based on current levels. - Preventative Health: Strongly remind the patient of the need to complete the overdue colonoscopy for routine screening and preventative care. Continue to support nutritional well-being through ongoing consultation with a lobster man.
--- OUTSIDE RECORDS SUMMARY | 2024-09-01 10:04 | XMS_ITS | Clinical Summary ---
Author Organization [facility] Address [address] [place] [address] 7 [place] [address] Care Team Providers Care Pie Chef Name Role Phone Unavailable Primary Care Provider [...] 5 Years) and At-Risk Patients (6 to 49) Years) Aged Out No longer eligible b ased on patient's age to complete this topic RSV under 20 months Aged Out No longe r eligible based on patient's age to complete this topic Rotavirus Vaccines Aged Out No longer eligible based on patient's age to complete this topic Insurance [facility] STANDARD
== END 2024-09-01 10:02 | disposition home or self-care (01) ==
PROVIDERS: PCP Internal Medicine; Visit Provider Internal Medicine
DX: Z80.0 Family history of malignant neoplasm of digestive organs (principal); D64.9 Anemia, unspecified; K21.9 Gastro-esophageal reflux disease without esophagitis; F41.1 Generalized anxiety disorder; Z23 Encounter for immunization

== ENCOUNTER → 2024-09-01 09:05 | Outpatient (BNVA) | payer OTHER, SELFPAY | PROVIDERS: PCP Internal Medicine; Visit Provider Internal Medicine | DX: Z23 Encounter for immunization (principal); D64.9 Anemia, unspecified; K21.9 Gastro-esophageal reflux disease without esophagitis; F41.1 Generalized anxiety disorder; Z80.0 Family history of malignant neoplasm of digestive organs | CPT/HCPCS: 90471; 90656; 96127; 99212 ==

== ENCOUNTER 2024-09-28 09:06 | Outpatient (AMB) | payer OTHER, SELFPAY ==
--- NOTE | 2024-09-28 09:31 | A.OFFVIS_ITS ---
VS Expanded 09/28/24 09:31 Height 5 ft 5 in Weight 120 lb 5.958 oz BMI 20.0 Intake Visit Reasons: monitor weight Allergies pomegranate [POMEGRANATE] Allergy (Mild, Verified 09/01/24 09:28) RASH Seasonal Allergies Allergy (Unknown, Verified 09/01/24 09:28) Unknown Nutrition Presentation Details: Pt presents for MNT f/u for underweight Currently maintaining at 120 lbs, BMI at 20 Pt reports working on having 2 meals/day (brunch and dinner) Brunch: egg sand or oatmeal with milk /Mc breakfast sand and coffe with milk/sugar Dinner: chipotlet rice/beans/steak/peppers/onions/lettuce/guac, soda or fast food burger sand or homemade meal spaghetti/meatballs snacks:chips or banana sometimes protein shake physical activity: walks daily 10-20 min beverages: cranberry juice/soda ,water dairy: 0-1/d fruits:0-1/d Reports taking on and off: MVI, iron supplement, folic acid, calcium carbonate, omega 3 fatty acid BS Monitoring Most Recent Diabetes Results: No Data to Display [facility] Medical History Well woman exam Low back pain Potential exposure to STD Ganglion cyst of tendon sheath of right hand Allergic rhinitis Screening for STD (sexually transmitted disease) Cholelithiases Micturition frequency Vaginal itching RUQ abdominal pain Family history of colon cancer Cholelithiasis Epigastric abdominal pain Abnormal uterine bleeding (AUB) Dysfunctional uterine bleeding Well woman exam ZULEMA II (cervical intraepithelial neoplasia II) Acute vaginitis Toe fracture, left Iron deficiency anemia Ulnar neuropathy Left renal stone Vitamin B12 deficiency Dysplasia of cervix, low grade (ZULEMA 1) GERD (gastroesophageal reflux disease) Asthma Vitamin D deficiency Surgical History Recurrent biliary colic Hx of colonoscopy History of cholecystectomy History of esophagogastroduodenoscopy (EGD) H/O LEEP History of tubal ligation History of wisdom tooth extraction History of tonsillectomy Family History Father CVD (cardiovascular disease) Myocardial infarction Mother Hodgkin lymphoma Colon cancer Lung cancer Brother Leukemia Colon cancer Maternal Grandmother Diabetes Social History Housing: Apartment Alcohol intake: current Alcohol intake frequency: holidays/special occasions only Comment: once a week 2 cups Patient Tobacco Use Status: Never used Tobacco Tobacco use type: Cigarette e-Cigarette/Vaping Use: Never Used Second Hand Smoke Exposure: No service: No Current occupational status: disabled Gender identity: Female Cognitive needs: No Hearing needs: No Vision needs: Yes Female Reproductive History Menstrual Age of Menarche: 13 Assessment & Plan Assessment & Plan (1) Abnormal weight loss: Code(s): R63.4 - Abnormal weight loss Category: Medical Plan: Recommend : Having nutrient dense beverages, working on meal routine, not skipping meals, physical activity wt 49 kg, (49.9 on 08/2023), 51 kg (10/2023), 52 kg (12/11), 54.5 (05/13), 54 kg(10/12)- maintaining Est kcal needs : [id number] seth per day + 500 to continue promoting weight gain , including nutrient dense foods (40% carb, 30% protein/fat) Est fluid needs as per 35 ml/d: 1700 Est prot per day as per 1.2 g/kg bw: 65 Recommend fiber intake : 8-10 g per day and gradually increase to 25-28 g per day for women and 35-38 g for men or as tolerated Educated patient on: ( R = reviewed V = verbalizes understanding N/R = needs review N/A = not applicable * Food sources of protein and its role in anemia, muscle mass, GI function : R * Hydration with nutrient dense beverages : milk, juice, water with juice, coconut water , no non diet beverages due to lack of nutrition: R * Healthy plate method concept: R,V * Nutrient dense beverages: R, V * Nutrient dense snacks including fruits/dairy/veg:R * Vitamins/mineral in foods ;R Patient Instructions: Choose nutrient dense snacks: smoothies /milkshakes with fruits/veg have chips with hummus or cottage cheese as dips yogurt with fruits or with nuts or with cereals Choose fruits juices or milk as beverages Keep physically active as able, walk 30 min 4-5 times/wk Coding Level of Care Code Nutr Indiv Subseq (70948) Diagnoses Abnormal weight loss R63.4 Time Spent (min) 30
--- OUTSIDE RECORDS SUMMARY | 2024-09-28 10:08 | XMS_ITS | Clinical Summary ---
Author Organization [employer] [facility] Address [address] [place] [address] [address] [place] [address] Care Team Providers Care Licensed Physical Therapist Assistant Name Role Phone Unavailable Primary Care Provider [...] patient's age to complete this topic Insurance [facility] STANDARD
== END 2024-09-28 10:30 | disposition home or self-care (01) ==
LOC: HO.ENCR 09:06
PROVIDERS: PCP Internal Medicine; Visit Provider Dietitian, Registered
DX: R63.4 Abnormal weight loss (principal)

== ENCOUNTER → 2024-09-28 09:06 | Outpatient (BNVA) | payer OTHER, SELFPAY | PROVIDERS: PCP Internal Medicine; Visit Provider Dietitian, Registered | DX: R63.4 Abnormal weight loss (principal) | CPT/HCPCS: 97803 ==

== ENCOUNTER 2025-02-04 10:35 | Outpatient (AMB) | payer OTHER, SELFPAY ==
--- NOTE | 2025-02-04 10:38 | A.OFFVIS_ITS ---
Vital Signs 02/04/25 10:41 Height 5 ft 3 in Weight 111 lb BMI 19.7 BP 98/58 L Blood Pressure Location Lt brachial Position Sitting Pulse 91 Pulse Oximetry (%) 99 Oxygen Delivery Method Room Air Intake Visit Reasons: gerd Intake Note: Patient follow up for GERD. Patient cc: poor appetite. Denies any other GI issues for today Match Marker Required: No Accompanied by: Self / Same As Patient Allergies pomegranate (POMEGRANATE) Allergy (Mild, Verified 02/04/25 10:38) RASH Seasonal Allergies Allergy (Unknown, Verified 02/04/25 10:38) Unknown HPI HPI gerd: Details: LAST VISIT: Recurrent biliary colic GERD (gastroesophageal reflux disease) Weight loss Depressed affect Plan Continue current therapy with omeprazole and famotidine. Patient is doing well after her cholecystectomy. Moving her bowels well without any issues. Patient will be sent for colonoscopy due to her recent weight loss and family history of colon cancer. What to expect before during and after procedure discussed with patient. Clear liquid diet and good bowel prep day before procedure discussed with patient. Procedure is scheduled already. Patient will be after the procedure, sooner on as basis. She is agreeable to this plan and verbalizes understanding of instructions. She was given the opportunity to ask questions and all questions answered. ? Thank you for allowing me to participate in her care New bisacodyl (Dulcolax (bisacodyl)) take 4 tabs at noon the day before your colonoscopy 20 mg (4 x 5 mg) PO ONCE 1 day 4 tabs 0RF Z12.11 polyethylene glycol 3350 (Miralax) As directed by gastroenterology department at [facility] 238 grams PO ONCE 238 grams 0RF Z12.11 TODAY'S VISIT Patient is here today for follow-up and to discuss going for upper endoscopy and colonoscopy. Patient reports that she had colonoscopy scheduled last year, however had to cancel and never rescheduled one. Patient reports occasional epigastric pain and pain in the right upper quadrant after eating. Denies dyspepsia, dysphagia or odynophagia. Occasional abdominal bloating. Reports that she is moving her bowels well. Denies melena, hematochezia, unintentional weight loss or ribbon like stools. However patient reports frequent postprandial bowel movements. History of cholecystectomy. Denies having diarrhea. Most of the time her bowels are soft. Patient has been going under lot of stress. Sees therapist regularly. Has an appointment next week on the 28. Patient also seen digital performance analyst in the past and is following up with her every couple months or so. Weight is fluctuating. Patient denies any issues with anesthesia in the past. No history of sleep apnea. Not on any anti coagulation medication. Family history of CRC. Patient's mom was diagnosed with colon cancer and patient's brother was diagnosed with colon cancer in his early 40s. [facility] Medical History Well woman exam Low back pain Potential exposure to STD Ganglion cyst of tendon sheath of right hand Allergic rhinitis Screening for STD (sexually transmitted disease) Cholelithiases Micturition frequency Vaginal itching RUQ abdominal pain Family history of colon cancer Cholelithiasis Epigastric abdominal pain Abnormal uterine bleeding (AUB) Dysfunctional uterine bleeding Well woman exam ZULEMA II (cervical intraepithelial neoplasia II) Acute vaginitis Toe fracture, left Iron deficiency anemia Ulnar neuropathy Left renal stone Vitamin B12 deficiency Dysplasia of cervix, low grade (ZULEMA 1) GERD (gastroesophageal reflux disease) Asthma Vitamin D deficiency Surgical History Recurrent biliary colic Hx of colonoscopy History of cholecystectomy History of esophagogastroduodenoscopy (EGD) H/O LEEP History of tubal ligation History of wisdom tooth extraction History of tonsillectomy Family History Father CVD (cardiovascular disease) Myocardial infarction Mother Hodgkin lymphoma Colon cancer Lung cancer Brother Leukemia Colon cancer Maternal Grandmother Diabetes Social History Housing: Apartment Alcohol intake: current Alcohol intake frequency: holidays/special occasions only Comment: once a week 2 cups Patient Tobacco Use Status: Never used Tobacco Tobacco use type: Cigarette e-Cigarette/Vaping Use: Never Used Second Hand Smoke Exposure: No service: No Current occupational status: disabled Gender identity: Female Cognitive needs: No Hearing needs: No Vision needs: Yes Female Reproductive History Menstrual Age of Menarche: 13 Review of Systems Const Denies weight gain and Denies weight loss ENT Reports no additional complaints, Denies dysphagia and Denies odynophagia Card Reports no additional complaints Resp Reports no additional complaints GI Reports abdominal pain (Epigastric), Denies belching, Denies melena, Reports bloating, Denies change in bowel habits, Denies dysphagia, Denies excessive flatus, Denies dyspepsia, Denies heartburn, Denies diarrhea, Denies loose stools, Denies nausea, Denies odynophagia and Denies vomiting Reports no additional complaints Musc Reports no additional complaints Neuro Reports no additional complaints Psych Reports no additional complaints Endo Reports no additional complaints Physical Exam Vital Signs: Last Vital Signs Pulse 91 02/04/25 10:41 BP 98/58 L 02/04/25 10:41 Pulse Ox 99 02/04/25 10:41 Oxygen Delivery Method Room Air 02/04/25 10:41 BMI result Body Mass Index 19.7 Const General: healthy appearing and no acute distress Orientation/consciousness: patient oriented x3 Resp Effort & Inspection: normal respiratory effort, able to speak in complete sentences, no tracheal deviation and symmetric chest movement Auscultation: clear to auscultation bilaterally Cardio Rate: regular rate GI Inspection: Yes normal to inspection and No distended Palpation (GI): Soft to palpation, not firm, nontender and No hepatosplenomegaly present Auscultation: normal bowel sounds General: Yes no CVA tenderness Back/Spine/Pelvis Back: no CVA tenderness Skin General skin exam: elasticity normal, turgor normal and dry skin Neuro General: patient oriented x3 Psych Appearance: grossly normal Mental Status: mental status grossly normal Assessment & Plan Assessment & Plan (1) GERD (gastroesophageal reflux disease): Code(s): K21.9 - Gastro-esophageal reflux disease without esophagitis Category: Medical Qualifiers: Esophagitis presence: without esophagitis Qualified Code(s): K21.9 - Gastro-esophageal reflux disease without esophagitis (2) Status post laparoscopic cholecystectomy: Code(s): Z90.49 - Acquired absence of other specified parts of digestive tract Category: Surgical Plan Patient will continue avoiding dietary triggers and late night snacking. Staying upright for minimum 3 hours after meals discussed with patient. Epigastric pain, history of H pylori. Patient will go for upper endoscopy. Patient will be sent for colonoscopy. Family history of CRC. Postprandial diarrhea. Patient will be sent for colonoscopy. What to expect before, during and after procedure discussed with patient. Stressed the importance of good bowel prep day before procedure. I will see patient after the procedure, sooner on as needed basis. Patient is agreeable to this plan and verbalizes understanding of instructions. She was given the opportunity to ask questions and all questions answered. Thank you for allowing me to participate in her care Medications: Refilled bisacodyl (Dulcolax (bisacodyl)) take 4 tabs at noon the day before your colonoscopy 20 mg (4 x 5 mg) PO ONCE 4 tabs 0RF 1 day Z12.11 - Encounter for screening for malignant neoplasm of colon polyethylene glycol 3350 (Miralax) As directed by gastroenterology department at [facility] 238 grams PO ONCE 238 grams 0RF Z12.11 - Encounter for screening for malignant neoplasm of colon Coding Level of Care Code Est Pt Level 3 (72160) Diagnoses Gastroesophageal reflux disease without esophagitis K21.9 Esophagitis presence: without esophagitis Status post laparoscopic cholecystectomy Z90.49 Time Spent (min) 30 Comment 20 minutes spent with patient and additional 10 minutes spent reviewing her records
[2025-02-04 10:41] VITALS: BP 98/58; PULSE 91; O2SAT 99; BMI 19.7
--- OUTSIDE RECORDS SUMMARY | 2025-02-04 11:07 | XMS_ITS | Clinical Summary ---
Author Organization [employer] Address [address] [place] [address] Care Team Providers Care Program Director Name Role Phone Unavailable Primary Care Provider Unavailabl e Immunizations Immunization Administration Dates Next Due Moderna Covid-19 Vaccine [...] 1992 HIV Screening 1992 SDOH Screening 1992 Disability Screening 1992 Alcohol/Substance Use Screening 2004 Tobacco Screening 2004 Family Planning (PISQ) 2007 HPV Vaccines (1 - 3-dose series) 2007 Hepatitis C Screening 2010 DTaP/Tdap/Td Vaccines (1 - Tdap) 2011 Hepatitis B Vaccines (1 of 3 - 19+ 3-dose series) 2011 Pap Smear 2013 Cervical Cancer Screening 2022 HPV/Cotest 2022 COVID-19 Vaccine (4 - 2023-2 5 season) 2024 09/23/2022, 05/04/2021, 04/06/2021 Influenza Vaccine (#1) 2025 Zoster Vaccines (1 of 2) 2042 RSV [...] patient's age to complete this topic Meningococcal B Vaccine Aged Out No l onger eligible based on patient's age to complete this topic Meningococcal Vaccine Aged Out No amita heron eligible based on patient's age to complete this topic Pneumococcal Vaccine: Pediatrics (0 to 5 Years) and At-Risk Patients (6 to 49) Years Aged Out No longer eligible b ased on patient's age to complete this topic RSV under 20 months Aged Out No longe r eligible based on patient's age to complete this topic Rotavirus Vaccines Aged Out No longer eligible based on patient's age to complete this topic Insurance [facility] STANDARD [facility] JAIL OPTIONS (HMO D-SNP)
== END 2025-02-04 10:56 | disposition home or self-care (01) ==
LOC: HO.HGI 10:36
PROVIDERS: PCP Internal Medicine; Visit Provider Nurse Practitioner Family
DX: K21.9 Gastro-esophageal reflux disease without esophagitis (principal); Z90.49 Acquired absence of other specified parts of digestive tract
CPT/HCPCS: 99213

== ENCOUNTER → 2025-02-04 10:35 | Outpatient (BNVA) | payer OTHER, SELFPAY | PROVIDERS: PCP Internal Medicine; Visit Provider Nurse Practitioner Family | DX: K21.9 Gastro-esophageal reflux disease without esophagitis (principal); Z90.49 Acquired absence of other specified parts of digestive tract | CPT/HCPCS: 99212 ==

== ENCOUNTER 2025-03-04 10:00 | Outpatient (AMB) | payer OTHER, SELFPAY ==
--- NOTE | 2025-03-04 10:07 | MHC.PC.OV ---
Vital Signs 03/04/25 10:09 Height 5 ft 3 in Weight 114 lb 2 oz BMI 20.2 BP 110/62 Blood Pressure Location Lt brachial Position Sitting Pulse 92 Pulse Source Pulse Oximeter Temp 97.3 F Temp Source Temporal Artery Scan Pulse Oximetry (%) 98 Oxygen Delivery Method Room Air Intake Visit Reasons: PE Intake Note: Patient is here today for a physical. Carrier Washer Required: No Cook Box Filler: Not Required per policy Accompanied by: Self / Same As Patient Allergies pomegranate (POMEGRANATE) Allergy (Mild, Verified 03/04/25 10:09) RASH Seasonal Allergies Allergy (Unknown, Verified 03/04/25 10:09) Unknown Medication List - Last Reconciled 03/04/25 by Viridiana Garcia MD ascorbic acid (vitamin C) 500 mg PO DAILY biotin 1 mg PO DAILY bisacodyl (Dulcolax (bisacodyl)) 20 mg (4 x 5 mg) PO ONCE 1 day [BOOST HIGH PROTEIN As directed] [BOOST to take BID weight loss , 10 lbs in the past 6 month, BMI at 17.4 on 05/2023 and Anemia] ferrous sulfate (Feosol) 325 mg PO DAILY 90 days fexofenadine (Elyssa Allergy) 180 mg PO DAILY fluticasone propionate 50 mcg/actuation 2 sprays intranasal DAILY folic acid 1 mg PO DAILY multivitamin 1 tab PO DAILY omega-3 fatty acids (Fish Oil Concentrate) 1,000 mg PO DAILY polyethylene glycol 3350 (Miralax) 238 grams PO ONCE 1 day polyethylene glycol 3350 (Miralax) 238 grams PO ONCE terconazole 0.8% 1 appful vaginal BEDTIME 3 days tranexamic acid 1,300 mg (2 x 650 mg) PO TID PRN 90 days Tobacco use date assessed: 03/04/25 Dental Screening Dental Screen Date: 09/01/24 [facility] Medical History Well woman exam Low back pain Potential exposure to STD Ganglion cyst of tendon sheath of right hand Allergic rhinitis Screening for STD (sexually transmitted disease) Cholelithiases Micturition frequency Vaginal itching RUQ abdominal pain Family history of colon cancer Cholelithiasis Epigastric abdominal pain Abnormal uterine bleeding (AUB) Dysfunctional uterine bleeding Well woman exam ZULEMA II (cervical intraepithelial neoplasia II) Acute vaginitis Toe fracture, left Iron deficiency anemia Ulnar neuropathy Left renal stone Vitamin B12 deficiency Dysplasia of cervix, low grade (ZULEMA 1) GERD (gastroesophageal reflux disease) Asthma Vitamin D deficiency Surgical History Recurrent biliary colic Hx of colonoscopy History of cholecystectomy History of esophagogastroduodenoscopy (EGD) H/O LEEP History of tubal ligation History of wisdom tooth extraction History of tonsillectomy Family History Father CVD (cardiovascular disease) Myocardial infarction Mother Hodgkin lymphoma Colon cancer Lung cancer Brother Leukemia Colon cancer Maternal Grandmother Diabetes Social History (Updated 03/04/25 @ 11:01 by Viridiana Garcia MD) Housing: Apartment Alcohol intake: current Alcohol intake frequency: holidays/special occasions only Comment: once a week 2 cups once a month 1-2 cups of wine (02/2025) Patient Tobacco Use Status: Never used Tobacco Tobacco use type: Cigarette e-Cigarette/Vaping Use: Never Used Second Hand Smoke Exposure: No service: No Current occupational status: disabled Gender identity: Female Cognitive needs: No Hearing needs: No Vision needs: Yes Female Reproductive History Menstrual Age of Menarche: 13 Questionnaire PHQ-9 Over the last 2 weeks, how often have you been bothered by any of the following problems? 1. Little interest or pleasure in doing things: several days 2. Feeling down, depressed, or hopeless: several days 3. Trouble falling or staying asleep, or sleeping too much: several days 4. Feeling tired or having little energy: more than half the days 5. Poor appetite or overeating: more than half the days 6. Feeling bad about yourself - or that you are a failure or have let yourself or your family down: not at all 7. Trouble concentrating on things, such as reading the newspaper or watching television: several days 8. Moving or speaking so slowly that other people could have noticed. Or the opposite - being so fidgety or restless that you have been moving around a lot more than usual: not at all 9. Thoughts that you would be better off or of hurting yourself in some way: not at all Total score: 8 Depression Screening Interpretation: Positive Depression Screening Done: Yes Source: Developed by Drs. Sudeep Mckeon, Aura Bradley, Jatin Quiles and colleagues, with an educational binta from [employer]. Thrive Questionnaire Date Thrive assessed: 09/01/24 I am a: Patient What is your living situation today?: I have a steady place to live Within the past 12 months, did the food you bought not last and you didn't have the money to get more?: Sometimes True Within the past 12 months, did you worry whether your food would run out before you got money to buy more?: Sometimes True Do you have trouble paying for medicines?: Yes Do you have trouble getting transportation to medical appointments?: Yes Do you have trouble paying your heating and electricity bill?: Yes Do you have trouble taking care of your child, family member or friend?: No Do you have trouble with day-to-day activities such as bathing, preparing meals, shopping, managing finances, etc.?: Yes Are you currently unemployed and looking for a job?: No Are you interested in more education?: No Please select the resources that you would like help with: Food, Paying for medicine and Utilities Currently or been in a relationship where the following occur: I choose not to answer THRIVE Score: 4 AUDIT C Alcohol Use Questionnaire (AUDIT-C) 1. How often do you have a drink containing alcohol?: Monthly or less 2. How many drinks containing alcohol do you have on a typical day when you are drinking?: 3 or 4 3. How often do you have six or more drinks on one occasion?: Less than monthly Total Score: 3 ERIK-7 AMB Questionnaire ERIK-7 Date ERIK - 7 assessed: 03/04/25 Feeling nervous, anxious, or on edge: 2 = More than half the days Not being able to stop or control worryin = Several days Worrying too much about different things: 1 = Several days Trouble relaxin = Nearly every day Being so restless that it is hard to sit still: 1 = Several days Becoming easily annoyed or irritable: 3 = Nearly every day Feeling afraid as if something awful might happen: 1 = Several days Total ERIK-7 score (0-4 normal; 5-9 mild; 10-14 moderate; 15-21 severe): 12 Source: Developed by Drs. Sudeep Mckeon, Aura Bradley, Jatin Quiles and colleagues, with an educational binta from [employer]. Review of Systems Const Denies poor appetite and Denies weakness Eyes Denies no additional complaints ENT Reports Normal hearing present, Denies dizziness, Denies nasal congestion, Denies tinnitus and Denies sore throat Card Denies chest pain, Denies syncope, Denies rapid heart rate and Denies dyspnea Resp Denies cough and Denies dyspnea GI Denies change in stool character, Reports constipation, Denies diarrhea, Denies nausea and Denies vomiting Denies urinary frequency, Denies difficulty voiding and Denies dysuria Neuro Reports Normal hearing present, Denies confusion, Denies dizziness, Denies syncope and Denies weakness Psych Denies confusion Physical exam (Primary Care) Vital Signs: Last Vital Signs Temp 97.3 F 03/04/25 10:09 Pulse 92 03/04/25 10:09 BP 110/62 03/04/25 10:09 Pulse Ox 98 03/04/25 10:09 Oxygen Delivery Method Room Air 03/04/25 10:09 BMI result Body Mass Index 20.2 Tobacco/Smoking Status: Tobacco use Status Tobacco use date assessed 03/04/25 03/04/25 10:13 Patient Tobacco Use Status Never used Tobacco 03/04/25 11:01 Tobacco use type Cigarette 03/04/25 11:01 e-Cigarette/Vaping Use Never Used 03/04/25 11:01 PHQ-9: PHQ-9 Score PHQ-9: Total score 8 03/04/25 10:56 Depression Screening Interpretation: Positive Thrive Assessment: Date of Thrive Assessment Date Thrive assessed 09/01/24 03/04/25 10:13 Currently or been in a relationship where the following occur: I choose not to answer Const General: No confusion Orientation/consciousness: No confusion HENMT Head: Yes normocephalic Ears: external ears normal and TM's normal bilaterally Face and sinus: Yes normal facial exam Mouth: moist mucous membranes Throat: Yes tonsils normal Eyes Conjunctivae: conjunctivae normal Pupils: Equal, round and reactive pupils present and Pupil accommodation reflex normal Direct Ophthalmoscopy: normal light reflex Neck Neck: No lymphadenopathy Thyroid: Thyroid normal Chest Chest palpation & inspection: normal inspection of the chest Resp Effort & Inspection: normal respiratory effort and no audible wheezes Auscultation: clear to auscultation bilaterally, no crackles, no wheezes and lung sounds not diminished Cardio Rate: regular rate Rhythm: regular rhythm Peripheral pulses: radial pulses present and dorsalis pedis present GI Palpation (GI): no masses Auscultation: normal bowel sounds and normoactive bowel sounds Rectal Exam - Female: deferred Skin General skin exam: no rashes or lesions noted Rashes: no rashes Neuro General: No confusion Cranial nerves: Yes Equal, round and reactive pupils present and Yes Normal hearing present Cognition (Neuro): normal cognition Gait exam (Neuro): Normal gait present Motor exam (neuro): 5/5 motor strength present throughout Deep tendon reflexes (DTR's): Right brachioradialis reflex intensity grade: 2+, Left brachioradialis reflex intensity grade: 2+, Right patellar reflex intensity grade: 2+ and Left patellar reflex intensity grade: 2+ Extrem General: No edema Coding Level of Care Code Est Pt Prev Care [id number]([id number]) Diagnoses Annual physical exam Z00.00 Gastroesophageal reflux disease without esophagitis K21.9 Esophagitis presence: without esophagitis Generalized anxiety disorder F41.1 Anemia D64.9 Thoracic back pain M54.6 Assessment & Plan Assessment & Plan (1) Annual physical exam: Code(s): Z00.00 - Encounter for general adult medical examination without abnormal findings Category: Medical Plan: Patient is advised to eat healthy, keep well hydrated, keep active and have adequate sleep. (2) GERD (gastroesophageal reflux disease): Code(s): K21.9 - Gastro-esophageal reflux disease without esophagitis Category: Medical Qualifiers: Esophagitis presence: without esophagitis Qualified Code(s): K21.9 - Gastro-esophageal reflux disease without esophagitis Plan: Avoid the foods that causes that usually spicy foods, tomato products, juices, coffee, soda and foods that your sensitive to. After eating do not lie down, allow 3-4 hours before in lie down. And keep the head of bed above 30 degrees to avoid the acid from going up. Patient is going to have an endoscopy upper next week (3) Generalized anxiety disorder: Comment: Insurance provided counseling(08/2023) every 2 weeks Code(s): F41.1 - Generalized anxiety disorder Category: Medical Plan: Continue with counseling (4) Anemia: Code(s): D64.9 - Anemia, unspecified Category: Medical (5) Thoracic back pain: Code(s): M54.6 - Pain in thoracic spine Category: Medical Plan History of Present Illness The patient is a 34-year-old female presenting for a physical examination and management of chronic conditions. The patient has a history of Gastroesophageal Reflux Disease (GERD), which was diagnosed by a firepot operator and tender. She is scheduled for an upper endoscopy next week to further evaluate her condition. The patient also has a history of Generalized Anxiety Disorder, which has been managed with counseling. She has a past medical history of Helicobacter pylori infection and left renal calculi, both of which have been addressed in previous medical visits. The patient reports mild anemia, which was noted in her blood work from March 15, and is currently improving. Her electrolytes, renal function, blood sugar, liver function, and cholesterol levels are all within normal limits. Preventative care measures include a scheduled colonoscopy on March 07, 2025, as her last colon test was in 2018. Health Maintenance - Scheduled colonoscopy on March 07, 2025 - Blood work monitoring for anemia - Referral to hematology for anemia evaluation - Nutritional counseling for weight management - Vaccinations: Tetanus up to date, flu vaccine due in April Social History - Family history: Father with heart problems, mother with colon cancer, Hodgkin's lymphoma, and lung cancer, brother with leukemia - Alcohol use: Consumes one to two cups of wine monthly - No tobacco or recreational drug use - Current medications include vitamin C, biotin, iron, Elyssa, Flonase, folic acid, multivitamins, omega-3, and tranexamic acid during menstruation - Calcium intake through diet, including milkshakes and cheese Review of Systems - General: Denies fever, reports mild anemia - HEENT: Denies hearing problems, reports ear popping - Cardiovascular: Denies chest pain, shortness of breath - Gastrointestinal: Denies heartburn, reports no issues with bowel movements - Genitourinary: Denies dysuria, reports waking once at night to urinate - Musculoskeletal: Reports back pain, possible spinal curvature Physical Exam General: Cooperative, healthy appearing, comfortable, no acute distress and well developed Orientation: Patient oriented x3 Limitations: No limitations Head: Normal to inspection Ears: Hearing grossly normal bilaterally, no ear wax, some congestion noted, likely due to allergies Nose: Normal external nose present Face and sinus: Normal facial exam Eyes: Appearance normal, both eyes and all related structures Neck: Normal visual inspection and Yes full ROM Respiratory: Normal respiratory effort and able to speak in complete sentences. Clear to auscultation bilaterally Cardiovascular: Regular rate and rhythm. Normal S1 and S2 GI: Normal to inspection. Soft to palpation and nontender Skin: No rashes or lesions noted Neuro: Patient oriented x3 Extremities: Normal to inspection Results - Labs: Mild anemia noted, normal electrolytes, renal function, blood sugar, liver function, and cholesterol Plan The patient will undergo an upper endoscopy next week to further evaluate her Gastroesophageal Reflux Disease GERD). She is advised to continue with nutritional counseling to assist with weight management. For her mild anemia, a referral to hematology has been made for further evaluation and management. Blood work will be monitored to assess the anemia's progression. Preventative care includes a scheduled colonoscopy on March 07, 2025, to screen for colorectal issues, given her family history of colon cancer. Vaccinations are up to date, with the flu vaccine scheduled for April. Patient was informed and verbally consented to the use of an ambient scribe for clinic note documentation during this visit. Discussion Notes I discussed with the patient the plan for an upper endoscopy to evaluate her GERD symptoms further. We reviewed the importance of nutritional counseling for weight management and the need for ongoing monitoring of her anemia through blood work. I also emphasized the importance of the scheduled colonoscopy for colorectal cancer screening, considering her family history. We confirmed that her vaccinations are current, with a flu vaccine planned for April. Patient Instructions - Attend the scheduled upper endoscopy next week. - Continue nutritional counseling for weight management. - Follow up with hematology for anemia evaluation. - Monitor blood work as advised. - Attend the scheduled colonoscopy on March 07, 2025. - Ensure flu vaccination is received in April. Orders: Orders Comprehensive Met. Panel Today D64.9 - Anemia, unspecified Free T4 (Free Thyroxine) Today D64.9 - Anemia, unspecified Lipid Panel Today D64.9 - Anemia, unspecified, E78.00 - Pure hypercholesterolemia, unspecified IRON PROFILE Today D64.9 - Anemia, unspecified Ferritin Today D64.9 - Anemia, unspecified Vitamin D 25-OH Total Today D64.9 - Anemia, unspecified PT Evaluation and Treatment Today M54.6 - Pain in thoracic spine CT NG by PCR Urine Today M54.6 - Pain in thoracic spine Syphilis Screen Today M54.6 - Pain in thoracic spine Complete Blood Count Auto Diff Today D64.9 - Anemia, unspecified Thyroid Stimulating Hormone Today D64.9 - Anemia, unspecified Vitamin B12 and Folate Today D64.9 - Anemia, unspecified Reticulocyte Count Today D64.9 - Anemia, unspecified XR thoracic spine 2V Today M54.6 - Pain in thoracic spine HIV Ab/Ag Today M54.6 - Pain in thoracic spine Referrals Hematology & Oncology Referral D64.9 - Anemia, unspecified
[2025-03-04 10:09] VITALS: BP 110/62; PULSE 92; TEMP 36.3; O2SAT 98; BMI 20.2
--- OUTSIDE RECORDS SUMMARY | 2025-03-04 10:14 | XMS_ITS | Clinical Summary ---
Author Organization [employer] Address [address] [place] [address] Care Team Providers Care Inspector [employer] Name Role Phone Unavailable Primary Care Provider [...] patient's age to complete this topic Insurance [facility] CUST[employer] OPTIONS (HMO D-SNP)
== END 2025-03-04 11:17 | disposition home or self-care (01) ==
LOC: HO.HMCH 10:01
PROVIDERS: PCP Internal Medicine; Visit Provider Internal Medicine
DX: Z00.00 Encounter for general adult medical examination without abnormal findings (principal); K21.9 Gastro-esophageal reflux disease without esophagitis; F41.1 Generalized anxiety disorder; D64.9 Anemia, unspecified; M54.6 Pain in thoracic spine

== ENCOUNTER → 2025-03-04 10:00 | Outpatient (BNVA) | payer OTHER, SELFPAY | PROVIDERS: PCP Internal Medicine; Visit Provider Internal Medicine | DX: Z00.00 Encounter for general adult medical examination without abnormal findings (principal); K21.9 Gastro-esophageal reflux disease without esophagitis; F41.1 Generalized anxiety disorder; D64.9 Anemia, unspecified; E78.00 Pure hypercholesterolemia, unspecified; M54.6 Pain in thoracic spine | CPT/HCPCS: 96127; 99395 ==

== ENCOUNTER 2025-03-07 08:15 | Day surgery (SDC) | payer OTHER, SELFPAY ==
--- OUTSIDE RECORDS SUMMARY | 2025-02-07 15:00 | XMS_ITS | Clinical Summary ---
Author Organization [employer] Address [address] [place] [address] Care Team Providers Care Psychometrist Name Role Phone Unavailable Primary Care Provider [...] patient's age to complete this topic Insurance [facility] STANDARD [facility] OPTIONS (HMO D-SNP)
[2025-03-03 13:12] VITALS: BMI 19.7
--- NOTE | 2025-03-04 10:05 | HO.ANESPROP2 ---
Documented by User: Eileen Murphy NP 03/04/25 10:08 HPI - Anesthesia Eval Consult details Narrative: 34yo F for Upper Endoscopy and Colonoscopy PMFSH Active Problems Active Problems: All Active Problems Well woman exam (Acute) Bile salt-induced diarrhea (Acute) Family history of colorectal cancer (Acute) Status post laparoscopic cholecystectomy (Acute) COVID-19 virus infection (Acute) Nasal congestion (Acute) Cough (Acute) Vulvovaginitis (Acute) Abnormal weight loss (Acute) History of Helicobacter pylori infection (Acute) Menorrhagia (Acute) Anemia (Acute) Left renal stone (Acute) Generalized anxiety disorder (Acute) Annual physical exam (Acute) Dorsal wrist ganglion (Acute) Menorrhagia (Acute) Vitamin B12 deficiency (Acute) GERD (gastroesophageal reflux disease) (Acute) Past Medical History Medical History Well woman exam Low back pain Potential exposure to STD Ganglion cyst of tendon sheath of right hand Allergic rhinitis Screening for STD (sexually transmitted disease) Cholelithiases Micturition frequency Vaginal itching RUQ abdominal pain Family history of colon cancer Cholelithiasis Epigastric abdominal pain Abnormal uterine bleeding (AUB) Dysfunctional uterine bleeding Well woman exam ZULEMA II (cervical intraepithelial neoplasia II) Acute vaginitis Toe fracture, left Iron deficiency anemia Ulnar neuropathy Left renal stone Vitamin B12 deficiency Dysplasia of cervix, low grade (ZULEMA 1) GERD (gastroesophageal reflux disease) Asthma Vitamin D deficiency Family History Family History Father CVD (cardiovascular disease) Myocardial infarction Mother Hodgkin lymphoma Colon cancer Lung cancer Brother Leukemia Colon cancer Maternal Grandmother Diabetes Family history of problems with anesthesia: No Surgical History Surgical History Recurrent biliary colic Hx of colonoscopy History of cholecystectomy History of esophagogastroduodenoscopy (EGD) H/O LEEP History of tubal ligation History of wisdom tooth extraction History of tonsillectomy History of Problems with Anesthesia: No Social History Social History (Updated 03/04/25 @ 11:01 by Viridiana Garcia MD) Housing: Apartment Alcohol intake: current Alcohol intake frequency: holidays/special occasions only Comment: once a week 2 cups once a month 1-2 cups of wine (02/2025) Patient Tobacco Use Status: Never used Tobacco Tobacco use type: Cigarette e-Cigarette/Vaping Use: Never Used Second Hand Smoke Exposure: No Use of substances other than those prescribed or required for medical reasons: Yes Substance Use Type Other:: edible last used 1 month ago Substance Use Frequency: Occasionally Are you DNR?: No Advance Directives: No Advance Directives Information Provided: Yes service: No Current occupational status: disabled Gender identity: Female Cognitive needs: No Hearing needs: No Vision needs: Yes Meds Allergies Allergy/AdvReac Type Severity Reaction Status Date / Time pomegranate (POMEGRANATE) Allergy Mild RASH Verified 03/07/25 09:17 Seasonal Allergies Allergy Unknown Unknown Verified 03/07/25 09:17 Home Medications ?Medication ?Instructions ?Recorded ?Confirmed ?Last Taken ?Type multivitamin 1 tab PO DAILY 07/06/20 03/07/25 Unknown History omega-3 fatty acids 1,000 mg 1,000 mg PO DAILY 07/06/20 03/07/25 02/28/25 History capsule (Fish Oil Concentrate) biotin 1 mg capsule 1 mg PO DAILY 10/03/20 03/07/25 Unknown History Exam Height,Weight and Vital Signs: Height 5 ft 3 in Weight 50.349 kg Assessment and Plan Assessment Anesthesia Assessment: Chart Reviewed Final Anesthetic Review Family History of Problems with Anesthesia: No History of Problems with Anesthesia: No Documented by User: Brock Lovelace MD 03/07/25 10:01 [facility] Past Medical History Medical History Well woman exam Low back pain Potential exposure to STD Ganglion cyst of tendon sheath of right hand Allergic rhinitis Screening for STD (sexually transmitted disease) Cholelithiases Micturition frequency Vaginal itching RUQ abdominal pain Family history of colon cancer Cholelithiasis Epigastric abdominal pain Abnormal uterine bleeding (AUB) Dysfunctional uterine bleeding Well woman exam ZULEMA II (cervical intraepithelial neoplasia II) Acute vaginitis Toe fracture, left Iron deficiency anemia Ulnar neuropathy Left renal stone Vitamin B12 deficiency Dysplasia of cervix, low grade (ZULEMA 1) GERD (gastroesophageal reflux disease) Asthma Vitamin D deficiency Family History Family History Father CVD (cardiovascular disease) Myocardial infarction Mother Hodgkin lymphoma Colon cancer Lung cancer Brother Leukemia Colon cancer Maternal Grandmother Diabetes Surgical History Surgical History Recurrent biliary colic Hx of colonoscopy History of cholecystectomy History of esophagogastroduodenoscopy (EGD) H/O LEEP History of tubal ligation History of wisdom tooth extraction History of tonsillectomy Social History Social History (Updated 03/04/25 @ 11:01 by Viridiana Garcia MD) Housing: Apartment Alcohol intake: current Alcohol intake frequency: holidays/special occasions only Comment: once a week 2 cups once a month 1-2 cups of wine (02/2025) Patient Tobacco Use Status: Never used Tobacco Tobacco use type: Cigarette e-Cigarette/Vaping Use: Never Used Second Hand Smoke Exposure: No Use of substances other than those prescribed or required for medical reasons: Yes Substance Use Type Other:: edible last used 1 month ago Substance Use Frequency: Occasionally Are you DNR?: No Advance Directives: No Advance Directives Information Provided: Yes service: No Current occupational status: disabled Gender identity: Female Cognitive needs: No Hearing needs: No Vision needs: Yes Meds Allergies Allergy/AdvReac Type Severity Reaction Status Date / Time pomegranate (POMEGRANATE) Allergy Mild RASH Verified 03/07/25 09:17 Seasonal Allergies Allergy Unknown Unknown Verified 03/07/25 09:17 Home Medications ?Medication ?Instructions ?Recorded ?Confirmed ?Last Taken ?Type multivitamin 1 tab PO DAILY 07/06/20 03/07/25 Unknown History omega-3 fatty acids 1,000 mg 1,000 mg PO DAILY 07/06/20 03/07/25 02/28/25 History capsule (Fish Oil Concentrate) biotin 1 mg capsule 1 mg PO DAILY 10/03/20 03/07/25 Unknown History Exam Airway Mallampati Class: II TM Dist: >3cm Neck ROM: Full Loose/Missing/Broken Teeth: No Heart: RRR Lungs: CTA Assessment and Plan Assessment Anesthesia Assessment: Anesthesia Plan Discussed Final Anesthetic Review NPO: Yes ASA Class: II Patient Risk: Low Procedure Risk: Low Anesthetic Plan Anesthetic Plan: MAC: Disposition: Standard PACU
[2025-03-07 09:02] VITALS: BP 93/52; PULSE 85; RESP 15; TEMP 36.4; O2SAT 100
--- NOTE | 2025-03-07 09:03 | MHC.SHP ---
Pre-Procedural Eval Section A - 24 Hr Update-Section A only Date of Service: 03/07/25 Section B - Complete if H&P > 30 days Chief Complaint: SCREENING, FH of colon cancer, epigastric pain Relevant Family History (Specify if Yes): Yes Relevant Social History: None Present Medications: see Short Stay Collaborative assessment Medical History: Significant History (Epigastric abdominal pain Abnormal uterine bleeding (AUB) Dysfunctional uterine bleeding Well woman exam ZULEMA II (cervical intraepithelial neoplasia II) Acute vaginitis Toe fracture, left Iron deficiency anemia Ulnar neuropathy Left renal stone Vitamin B12 deficiency Dysplasia of cervix, low grade (C) History of Previous Operations: Relevant previous surgery/procedure and date(s) (Recurrent biliary colic Hx of colonoscopy History of cholecystectomy History of esophagogastroduodenoscopy (EGD) H/O LEEP History of tubal ligation History of wisdom tooth extraction History of tonsillectomy) Allergies: Allergies Allergy/AdvReac Type Severity Reaction Status Date / Time pomegranate (POMEGRANATE) Allergy Mild RASH Verified 03/04/25 10:09 Seasonal Allergies Allergy Unknown Unknown Verified 03/04/25 10:09 Review of Systems Sugical H&P ROS: Negative: Constitution, Cardiovascular, Respiratory and Gastrointestinal Exam Surgical H&P Exam: Normal: Heart, Normal: Lungs, Normal: Extremities and Normal: Abdomen Plan Diagnosis/Plan: Unchanged I have reviewed the history and physical and performed a pertinent physical examination on my patient. No changes have occurred unless specified. Time Spent With Patient Time: Total time managing care of this patient today ____ minutes.
[2025-03-07] MEDS: Lactated Ringers 1,000 ML 100 ML IVCONT (09:17)
--- NOTE | 2025-03-07 11:16 | HO.OPN-COLON ---
Colonoscopy Operative Note Operative Note Date of Service: 03/07/25 Narrative: FLEXIBLE TRANSORAL UPPER GASTROINTESTINAL ENDOSCOPY WITH BIOPSIES AND COLONOSCOPY TILL CECUM WITH BIOPSIES Pre-op diagnosis: Colon cancer screening, family hx of colon cancer (Mom and brother), epigastric pain, bloating, postprandial diarrhea Post-op diagnosis: Gastritis, gastric polyps, gastric antral erosion, diverticulosis, hemorrhoids Endoscopist:? Mary Anne Urrutia MD Anesthesia:?MAC UPPER ENDOSCOPY Consent: Indications for the procedure and potential complications of bleeding, perforation, reaction to medications and missed diagnosis were discussed with the patient and informed consent was obtained. Instrument: Olympus GIF H 190 mid size upper endoscope Monitoring: Vital signs and clinical assessment, continuous EKG monitoring, Pulse oximetry, Carbon Dioxide monitoring and blood pressure monitoring were done throughout the procedure. Procedure: The patient was placed in the left lateral decubitis position and pre-procedure medications were administered and a bite block was placed. The endoscope was inserted into the mouth and advanced under direct vision to the third part of duodenum. A careful inspection was made as the upper endoscope was withdrawn including a retroflexed examination of the proximal stomach; Findings and interventions are described below. Findings: Larynx: Normal Esophagus: GE junction at 40 cms. No esophagitis or Chance's. Stomach: A few 5-6 mm benign appearing polyps in the gastric body - polyps were removed with a cold snare and a cold biopsy. A 4-5 mm linear erosion in the pre-pyloric area - biopsied Moderate gastric erythema - biopsies were obtained from the antrum to check for Helicobacter pylori. Grade 2 flap valve on retroflexed examination of the cardia. Duodenum: Normal bulb and descending duodenum Biopsies were obtained from descending duodenum to check for celiac sprue Intervention: Biopsies as noted above COLONOSCOPY PROCEDURE NOTE Instrument: Olympus PCF H 190 L variable stiffness pediatric colonoscope Monitoring: Vital signs and clinical assessment, intermittent blood pressure monitoring, continuous EKG monitoring, Pulse oximetry and Carbon Dioxide monitoring were done throughout the procedure. Please see anesthesia flowsheet. Colon withdrawl time was 10 minutes. Procedure: The patient was placed in the left lateral decubitis position and pre-procedure medications were administered. After a digital rectal examination of the ano-rectum, the video colonoscope was inserted into the rectum and advanced through the colon to the cecum. The colonoscope was slowly withdrawn in a retrograde panoramic fashion and the colon mucosa was carefully examined including a retroflexed view of the rectum. Findings and interventions are described below. Procedure Difficulty: without difficulty Findings: Terminal Ileum: Not evaluated Cecum: Normal Ascending Colon: Normal Transverse Colon: Normal Descending Colon: Normal Sigmoid Colon: Moderate diverticulosis Rectum: Normal Ano-rectum: Small internal hemorrhoids Colon preparation: Excellent, after some irrigation. [place] Bowel Preparation Scale Right colon; 3 Transverse colon: 3 Left colon; 3 (0 = Unprepared colon segment with mucosa not seen due to solid stool that cannot be cleared. 1 = Portion of mucosa of the colon segment seen, but other areas of the colon segment not well seen due to staining, residual stool and/or opaque liquid. 2 = Minor amount of residual staining, small fragments of stool and/or opaque liquid, but mucosa of colon segment seen well. 3 = Entire mucosa of colon segment seen well with no residual staining, small fragments of stool or opaque liquid) Impression and Post Procedure Diagnosis: Endoscopy Findings: ESOPHAGUS: Normal STOMACH: Gastritis, benign appearing polyps in the gastric body, gastric erosion DUODENUM: Normal - biopsied to check for celiac sprue Colonoscopy Findings: No polyps were detected Random biopsies were obtained from the left colon to check for microscopic colitis Moderate diverticulosis seen in the sigmoid colon Small hemorrhoids on retroflexed exam. Plan: Pt to schedule a FU appointment with Bonnie Drake NP Repeat Colonoscopy in 5 years (due to family hx of colon cancer). A summary of above findings and relevant handouts were given to the patient. BIOPSIES SHOWED: A. Small bowel, biopsy: Small intestinal mucosa within normal limits. B. Stomach, antrum, biopsy: Antral-type mucosa with mild chronic inactive inflammation; no Helicobacter organisms seen. C. Stomach, antral erosion, biopsy: Antral-type mucosa with mild chronic inactive inflammation and regenerative changes; no Helicobacter organisms seen. D. Stomach, polypectomies: Fundic gland polyps with background mild chronic inactive inflammation; no Helicobacter organisms seen. E. Colon, left, biopsy: Colonic mucosa within normal limits. Letter sent to the patient with biopsy results. Patient was placed on the colonoscopy recall list for repeat colonoscopy in 5 years.
[2025-03-07 11:17] VITALS: BP 95/55; PULSE 105; RESP 16; TEMP 37; O2SAT 100
[2025-03-07 11:30] VITALS: BP 102/63; PULSE 92; RESP 16; O2SAT 100
[2025-03-07 11:45] VITALS: BP 98/61; PULSE 89; RESP 16; O2SAT 100
[2025-03-07 12:10] VITALS: BP 104/56; PULSE 77; RESP 16; TEMP 36.7; O2SAT 100
== END 2025-03-07 12:44 | disposition home or self-care (01) ==
PROVIDERS: PCP Internal Medicine; Visit Provider Internal Medicine Gastroenterology
PROC: (CPT 45380; principal; 2025-03-07 10:10)
DX: Z12.11 Encounter for screening for malignant neoplasm of colon (principal); K57.30 Diverticulosis of large intestine without perforation or abscess without bleeding; K64.8 Other hemorrhoids; Z80.0 Family history of malignant neoplasm of digestive organs; K21.9 Gastro-esophageal reflux disease without esophagitis; K29.60 Other gastritis without bleeding; K31.7 Polyp of stomach and duodenum; K25.9 Gastric ulcer, unspecified as acute or chronic, without hemorrhage or perforation; J45.909 Unspecified asthma, uncomplicated; Z86.19 Personal history of other infectious and parasitic diseases; Z90.49 Acquired absence of other specified parts of digestive tract
CPT/HCPCS: 45380; 43251; 43239; 88305; 88313; 88342; J2704

== ENCOUNTER → 2025-03-07 08:15 | Outpatient (BNV) | payer OTHER, SELFPAY | PROVIDERS: PCP Internal Medicine; Visit Provider Internal Medicine Gastroenterology | DX: Z12.11 Encounter for screening for malignant neoplasm of colon (principal); Z80.0 Family history of malignant neoplasm of digestive organs; K57.30 Diverticulosis of large intestine without perforation or abscess without bleeding; K64.8 Other hemorrhoids; R10.13 Epigastric pain; K31.7 Polyp of stomach and duodenum; K29.70 Gastritis, unspecified, without bleeding | CPT/HCPCS: 43251; 45380 ==

== ENCOUNTER 2025-03-23 09:58 | Outpatient (REF) | payer OTHER, SELFPAY ==
--- NOTE | ~2025-03-23 | XR_ITS ---
EXAMINATION: XR THORACIC SPINE CLINICAL INFORMATION: M54.6 - Pain in thoracic spine COMPARISON: Correlated to chest x-ray dated May 27, 2018. TECHNIQUE: AP lateral and swimmer's projection. FINDINGS: No acute cortical disruption or gross malalignment. S-shaped curvature of the thoracic spine. No lytic or blastic lesions. Mild endplate sclerosis at multiple levels of the axial skeleton. XR/XR thoracic spine 2V IMPRESSION: Mild scoliosis. Electronically signed by: Grzegorz Farrell MD 03/23/2025 11:12 AM EDT
[2025-03-23 10:20] LABS: MANUAL DIFF FLAG NO
[2025-03-23 10:32] LABS: Hematocrit 39.0 % (37.0-47.0); Hemoglobin 12.4 g/dl (12.0-16.0); Imm Gran Abs Auto 0.01 X10*3/uL (0.00-0.03); Imm Gran Pct Auto 0.2 % (0.0-0.4); Lymphocytes Absolute Auto 1.6 X10*3/uL (1.2-4.9); Mean Corpuscular HGB Conc 31.8 g/dl (31.0-35.0); Mean Corpuscular Hemoglobin 27.6 pg (27.0-33.0); Mean Corpuscular Volume 86.7 fL (80.0-98.0); NRBC Abs Auto 0.000 X10*3/uL (0.0-0.012); NRBC Pct Auto 0.0 /100WBC (0.0-0.2); Platelet Count 198 X10*3/uL (160-400); Red Blood Count 4.50 X10*6/uL (4.20-5.50); Reticulocytes Absolute 0.044 X10*6/uL (0.026-0.095); White Blood Count 5.4 X10*3/uL (4.8-10.8)
[2025-03-23 11:19] LABS: Alanine Aminotransferase 16 U/L (0-31); Albumin Level 4.3 g/dL (3.5-5.0); Alkaline Phosphatase 65 U/L (39-117); Anion Gap 11 (12-20); Aspartate Amino Transferase 17 U/L (5-31); Blood Urea Nitrogen 13 mg/dL (9-16); Calcium 8.8 mg/dL (8.4-10.2); Carbon Dioxide 24 mmol/L (22-29); Chloride 107 mmol/L (96-108); Cholesterol 168 mg/dL (<200); Estimated Glomerular Filt Rate > 60; HDL Cholesterol 60 mg/dL (>40); Iron 60 mcg/dL (30-160); Percent Iron Saturation 21 % (15-50); Potassium 4.3 mmol/L (3.3-5.1); Sodium 138 mmol/L (135-145); Total Iron Binding Capacity 281 mcg/dL (228-428); Total Protein 6.8 g/dL (6.5-8.0); Triglycerides 76 mg/dL (<150); Unsaturated Iron Binding 221 ug/dL
[2025-03-23 11:21] LABS: HIV Num 1 0.05 S/CO (0.00-0.99)
[2025-03-23 11:23] LABS: Syphilis Screen Nonreactive (Nonreactive)
[2025-03-23 11:27] LABS: Ferritin 31 ng/mL (10-122); Free T4 (Free Thyroxine) 0.98 ng/dL (0.71-1.85); Thyroid Stimulating Hormone 1.47 uIU/mL (0.32-4.0)
[2025-03-23 11:35] LABS: Folate 12.7 ng/mL (> or = 4.0); Vitamin B12 346 pg/mL (200-900)
[2025-03-23 13:39] LABS: CT PCR Urine NOT DETECTED (Not Detect.); NG PCR Urine NOT DETECTED (Not Detect.)
== END 2025-03-23 09:59 | disposition home or self-care (01) ==
LOC: HO.XRAY 09:58
PROVIDERS: PCP Internal Medicine; Visit Provider Internal Medicine
DX: Z01.84 Encounter for antibody response examination (principal); M54.6 Pain in thoracic spine; E78.00 Pure hypercholesterolemia, unspecified; D64.9 Anemia, unspecified; Z11.3 Encounter for screening for infections with a predominantly sexual mode of transmission; Z11.4 Encounter for screening for human immunodeficiency virus [HIV]; Z11.8 Encounter for screening for other infectious and parasitic diseases
CPT/HCPCS: 72070; 80053; 80061; 82306; 82607; 82728; 82746; 83540; 84439; 84443; 85025; 85045; 86780; 87389; 87491; 87591

== ENCOUNTER → 2025-03-23 10:24 | Outpatient (BNV) | payer OTHER, SELFPAY | PROVIDERS: PCP Internal Medicine; Visit Provider Radiology Diagnostic Radiology | DX: M54.6 Pain in thoracic spine (principal) | CPT/HCPCS: 72070 ==

== ENCOUNTER → 2025-04-22 09:41 | Outpatient (BNV) | payer OTHER, SELFPAY | PROVIDERS: PCP Internal Medicine; Referring Provider Internal Medicine; Visit Provider Internal Medicine | DX: D50.0 Iron deficiency anemia secondary to blood loss (chronic) (principal); N92.0 Excessive and frequent menstruation with regular cycle | CPT/HCPCS: 99203 ==

== ENCOUNTER 2025-05-15 18:47 | Emergency (ER) | payer OTHER, SELFPAY ==
[2025-05-15 19:20] VITALS: BP 100/56; PULSE 108; RESP 18; TEMP 36.8; O2SAT 99; BMI 19.7
--- NOTE | 2025-05-15 19:20 | ED.GENADULT ---
HPI - General Adult General Chief complaint: Upper Respiratory Symptoms Stated complaint: headache/just doesn't feel well Time Seen by Provider: 05/15/25 20:25 Source: patient Mode of arrival: ambulatory Limitations: no limitations History of Present Illness ED Provider: Kami Beaver APRN HPI narrative: 35 yo female with no known medical history here with headache, sore throat, right ear pain since last night. Her son is home sick with similar symptoms. She has no fever, neck pain, neck stiffness, skin rash, difficulty breathing, difficulty swallowing, chest pain, shortness of breath, abdominal pain, vomiting or diarrhea. No recent travel. Related Data Home Medications ?Medication ?Instructions ?Recorded ?Confirmed multivitamin 1 tab PO DAILY 07/06/20 04/22/25 omega-3 fatty acids 1,000 mg 1,000 mg PO DAILY 07/06/20 04/22/25 capsule (Fish Oil Concentrate) biotin 1 mg capsule 1 mg PO DAILY 10/03/20 04/22/25 Previous Rx's ?Medication ?Instructions ?Recorded BOOST HIGH PROTEIN #60 ea 06/16/23 BOOST to take BID #60 ea 07/10/23 folic acid 1 mg tablet 1 mg PO DAILY #90 tabs 05/11/24 fluticasone propionate 50 2 spray intranasal DAILY #48 mL 05/14/24 mcg/actuation nasal spray,suspension tranexamic acid 650 mg tablet 1,300 mg (2 x 650 mg) PO TID PRN 06/21/24 menstrual pain 90 days #90 tabs terconazole 0.8 % vaginal cream 1 appful vaginal BEDTIME 3 days 08/16/24 #20 grams fexofenadine 180 mg tablet 180 mg PO DAILY #90 tabs 08/31/24 (Elyssa Allergy) ferrous sulfate 325 mg (65 mg 325 mg PO DAILY 90 days #90 tabs 11/02/24 iron) tablet (Feosol) ascorbic acid (vitamin C) 500 mg 500 mg PO DAILY #90 tabs 01/06/25 tablet Allergies Allergy/AdvReac Type Severity Reaction Status Date / Time pomegranate (POMEGRANATE) Allergy Mild RASH Verified 05/15/25 19:22 Seasonal Allergies Allergy Unknown Unknown Verified 05/15/25 19:22 Review of Systems Review of Systems: Yes all other systems are reviewed and are negative Constitutional: Constitutional: Reports no additional constitutional complaints, Denies body ache(s), Denies chills, Denies fever(s), Reports headache(s) and Denies weakness Eyes: Eyes: Reports no additional eye complaints and Denies change in vision ENT: Reports system reviewed and no additional complaints, except as documented, Denies dizziness, Reports otalgia, Reports headache(s), Reports nasal congestion, Denies nasal discharge, Denies neck pain and Reports sore throat Cardiovascular: Cardiovascular: Reports no additional cardiovascular complaints, Denies chest pain, Denies leg edema and Denies dyspnea Respiratory: Respiratory: Reports no additional respiratory complaints, Denies cough and Denies dyspnea Gastrointestinal: Gastrointestinal: Reports no additional gastrointestinal complaints, Denies abdominal pain, Denies diarrhea, Denies nausea and Denies vomiting Genitourinary: Genitourinary: Reports no additional female genitourinary complaints and Denies urinary incontinence Musculoskeletal: Musculoskeletal: Reports no additional musculoskeletal complaints, Denies back pain, Denies arthralgias, Denies joint swelling, Denies neck pain, Denies numbness and Denies tingling Integumentary/Breasts: Skin/Breast: Reports system reviewed and no additional complaints, except as docu and Denies rash Neurologic: Denies Abnormal speech present, Denies dizziness, Reports headache(s), Denies numbness, Denies tingling and Denies weakness PMFSH Past Medical History Attestation statement: The following information was validated with the patient. Source: old records reviewed and nursing notes reviewed Medical History Low back pain Potential exposure to STD Ganglion cyst of tendon sheath of right hand Allergic rhinitis Screening for STD (sexually transmitted disease) Cholelithiases Micturition frequency Vaginal itching RUQ abdominal pain Family history of colon cancer Cholelithiasis Epigastric abdominal pain Abnormal uterine bleeding (AUB) Dysfunctional uterine bleeding Well woman exam ZULEMA II (cervical intraepithelial neoplasia II) Acute vaginitis Toe fracture, left Iron deficiency anemia Ulnar neuropathy Left renal stone Vitamin B12 deficiency Dysplasia of cervix, low grade (ZULEMA 1) GERD (gastroesophageal reflux disease) Asthma Vitamin D deficiency Surgical History Recurrent biliary colic Hx of colonoscopy History of cholecystectomy History of esophagogastroduodenoscopy (EGD) H/O LEEP History of tubal ligation History of wisdom tooth extraction History of tonsillectomy Family History Family History Father CVD (cardiovascular disease) Myocardial infarction Mother Hodgkin lymphoma Colon cancer Lung cancer Brother Leukemia Colon cancer Maternal Grandmother Diabetes Social History Social History Household Members: Family and Children Housing: Apartment Alcohol intake: current Alcohol intake frequency: holidays/special occasions only Comment: once a week 2 cups once a month 1-2 cups of wine (02/2025) Patient Tobacco Use Status: Never used Tobacco e-Cigarette/Vaping Use: Never Used Second Hand Smoke Exposure: No Substance Use Type: Marijuana Advance Directives: No Advance Directives Information Provided: No Do you have a plan to hurt others: No Plan service: No Current occupational status: disabled Gender identity: Female Cognitive needs: No Hearing needs: No Vision needs: Yes Physical Exam ED Vital Signs: Vital Signs - 24 hr 05/15/25 19:20 Temperature 98.3 F Pulse Rate 108 H Respiratory Rate 18 Blood Pressure 100/56 L Pulse Oximetry 99 Oxygen Delivery Method Room Air BMI result Body Mass Index 19.7 Const General: cooperative, healthy appearing, comfortable and no acute distress Orientation/consciousness: patient oriented x3 Limitations: no limitations HENMT Head: Yes normal to inspection Ears: hearing grossly normal bilaterally, mastoids normal, no periauricular adenopathy and TM abnormal (Bilateral effusion, no erythema) General nose exam: Normal external nose present Face and sinus: Yes normal facial exam Mouth: Normal oral and palatal mucosa present Throat: Yes posterior oropharynx normal, Yes tonsils normal and Yes uvula midline Eyes General: appearance normal, both eyes and all related structures Pupils: Equal, round and reactive pupils present Neck Neck: Yes normal visual inspection, Yes full ROM, Yes no lymphadenopathy and Yes no meningeal signs Chest Chest palpation & inspection: normal inspection of the chest Resp Effort & Inspection: normal respiratory effort Auscultation: clear to auscultation bilaterally Cardio Rate: regular rate Rhythm: regular rhythm Peripheral pulses: Peripheral pulses 2+ throughout GI Inspection: Yes normal to inspection Palpation (GI): Soft to palpation and nontender Auscultation: normal bowel sounds Back/Spine/Pelvis Thoracic/Lumbar Spine: thoracic and lumbar spine normal to inspection Skin General skin exam: no rashes or lesions noted Neuro General: patient oriented x3, no meningeal signs, no focal motor deficits and normal sensation to monofilament Cranial nerves: Yes Equal, round and reactive pupils present Cognition (Neuro): normal cognition Speech: No Abnormal speech present Gait exam (Neuro): Normal gait present Motor exam (neuro): 5/5 motor strength present throughout Extrem General: Yes normal to inspection Course Course Course Narrative: Kami Beaver SERVICE CENTER COORDINATOR 05/15 1920 This is a rapid medical exam. Defer additional HPI, ROS and PE to primary provider. 35 yo female with no known medical history here with headache, sore throat, right ear pain. Will send testing for flu, COVID and strep VSS Medical Decision Making Medical Decision Making MDM Narrative: 35 yo female with no known medical history here with headache, sore throat, right ear pain since last night. Her son is home sick with similar symptoms. She has no fever, neck pain, neck stiffness, skin rash, difficulty breathing, difficulty swallowing, chest pain, shortness of breath, abdominal pain, vomiting or diarrhea. No recent travel. On exam patient has bilateral effusions but no evidence of otitis media. Her exam is otherwise unremarkable. Her vitals are stable. Will send flu, COVID, strep testing Differential Diagnosis Differential Diagnoses: The differential diagnosis associated with the presentation includes Viral syndrome, influenza, strep pharyngitis Low suspicion for RPA, ENVIRONMENTAL COMPLIANCE INSPECTOR, epiglottitis, Rakan's angina, otitis media, otitis externa, malignant otitis externa, mastoiditis Admission/Observation Consideration of admission/observation: Escalation of care including admission/observation considered Lab Data [facility] Lab Attestation statement: I reviewed the patient's lab results. Labs: Lab Results 05/15/25 Range/Units 19:45 COVID-19 (CORBIN) Negative (Negative) COVID-19 Clin Com See Note Influenza Type A (MILLY) Negative (Negative) Influenza Type B (MILLY) Negative (Negative) Influenza A & B Note See Note S. pyogenes GrpA MILLY Negative (Negative) Prescription Management I considered prescription management with: Antibiotic Discharge Plan Discharge Clinical Impression: Viral infection Patient Disposition: Home, Self-Care Instructions: Viral Syndrome (ED) Additional Instructions: Your testing for flu, COVID and strep are negative Take Motrin or Tylenol for any pain or fever Increase fluids at home and rest Prescriptions: No Action (DME) BOOST HIGH PROTEIN See Rx Instructions .Route .MEDSUPPLY Qty: 60 5RF Rx Instructions: As directed (DME) BOOST to take BID See Rx Instructions .Route .MEDSUPPLY Qty: 60 12RF Rx Instructions: weight loss , 10 lbs in the past 6 month, BMI at 17.4 on 05/2023 and Anemia folic acid 1 mg tablet 1 mg PO DAILY Qty: 90 3RF fluticasone propionate 50 mcg/actuation spray,suspension 2 spray intranasal DAILY Qty: 48 0RF tranexamic acid 650 mg tablet 1,300 mg PO TID PRN (Reason: menstrual pain) 90 Days Qty: 90 3RF Rx Instructions: Take 2 tablets 3 times a day starting the 1st day of menstrual cycle up to 3-5 days fexofenadine [Elyssa Allergy] 180 mg tablet 180 mg PO DAILY Qty: 90 3RF ferrous sulfate [Feosol] 325 mg (65 mg iron) tablet 325 mg PO DAILY 90 Days Qty: 90 2RF ascorbic acid (vitamin C) 500 mg tablet 500 mg PO DAILY Qty: 90 2RF multivitamin Tablet 1 tab PO DAILY omega-3 fatty acids [Fish Oil Concentrate] 1,000 mg capsule 1,000 mg PO DAILY biotin 1 mg capsule 1 mg PO DAILY terconazole 0.8 % cream 1 appful vaginal BEDTIME 3 Days Qty: 20 0RF Referrals: Po,Viridiana Qureshi MD [Primary Care Provider, Internal Medicine] Print Language: Malaysian
[2025-05-15 20:06] LABS: IDNOW Serial# 6674DD1D; Strep A Nucleic Acid Negative (Negative)
[2025-05-15 20:19] LABS: COVID-19 Test Negative (Negative); IDNOW Serial# 152EDE1D; IDNOW Serial# 16C4AD1C; Influenza B2 Negative (Negative)
--- OUTSIDE RECORDS SUMMARY | 2025-05-15 20:36 | XMS_ITS | Clinical Summary ---
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
[2025-05-15 20:39] VITALS: BP 100/56; PULSE 108; RESP 18; TEMP 36.8; O2SAT 99
== END 2025-05-15 20:40 | disposition home or self-care (01) ==
PROVIDERS: Nurse Practitioner Family; Emergency Provider Emergency Medicine; PCP Internal Medicine
DX: B34.9 Viral infection, unspecified (principal); R51.9 Headache, unspecified; J02.9 Acute pharyngitis, unspecified; Z11.52 Encounter for screening for COVID-19; Z79.899 Other long term (current) drug therapy
CPT/HCPCS: 87502; 87635; 87651; 99282; 99283

== ENCOUNTER 2025-05-19 09:07 | Outpatient (AMB) | payer OTHER, SELFPAY ==
--- NOTE | 2025-05-19 09:21 | MHC.OFFVIS ---
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 No complaints. The patient is interested in STD screening Last Pap/HPV was negative in 05/13 [facility] Medical History (Updated 05/19/25 @ 09:34 by Jony Mazariegos MD) Screening for STD (sexually transmitted disease) Low back pain Potential exposure to STD Ganglion cyst of tendon sheath of right hand Allergic rhinitis Cholelithiases Micturition frequency Vaginal itching RUQ abdominal pain Family history of colon cancer Cholelithiasis Epigastric abdominal pain Abnormal uterine bleeding (AUB) Dysfunctional uterine bleeding Well woman exam ZULEMA II (cervical intraepithelial neoplasia II) Acute vaginitis Toe fracture, left Iron deficiency anemia Ulnar neuropathy Left renal stone Vitamin B12 deficiency Dysplasia of cervix, low grade (ZULEMA 1) GERD (gastroesophageal reflux disease) Asthma Vitamin D deficiency Surgical History Recurrent biliary colic Hx of colonoscopy History of cholecystectomy History of esophagogastroduodenoscopy (EGD) H/O LEEP History of tubal ligation History of wisdom tooth extraction History of tonsillectomy Family History Father CVD (cardiovascular disease) Myocardial infarction Mother Hodgkin lymphoma Colon cancer Lung cancer Brother Leukemia Colon cancer Maternal Grandmother Diabetes Social History Household Members: Family and Children Housing: Apartment Alcohol intake: current Alcohol intake frequency: holidays/special occasions only Comment: once a week 2 cups once a month 1-2 cups of wine (02/2025) Patient Tobacco Use Status: Never used Tobacco e-Cigarette/Vaping Use: Never Used Second Hand Smoke Exposure: No Substance Use Type: Marijuana service: No Current occupational status: disabled Gender identity: Female Cognitive needs: No Hearing needs: No Vision needs: Yes Female Reproductive History Menstrual Age of Menarche: 13 Duration of menses: 6-7 days Date of last menstrual period: 05/06/25 control method: permanent sterilization Total pregnancies: 2 Full term: 2 Date of last pap smear: 05/12/24 (negative pap smear, negative hpv ) History of abnormal pap smear: Yes Review of Systems Const All systems reviewed & are unremarkable except as noted in HPI and below Card Reports as per HPI Resp Reports as per HPI GI Reports as per HPI and Reports no additional complaints Reports as per HPI Physical Exam Const General: cooperative, healthy appearing and comfortable Chest Chest palpation & inspection: normal inspection of the chest and normal palpation of entire chest wall Breast/axilla inspection: normal inspection of the breasts and normal inspection of the axillae Breast/axilla palpation: normal palpation of the breasts, normal palpation of the axillae and no axillary lymphadenopathy Resp Effort & Inspection: normal respiratory effort Auscultation: clear to auscultation bilaterally Percussion: percussion normal Cardio Palpation: normal PMI Rate: regular rate Rhythm: regular rhythm Heart sounds: no murmurs and no rubs Peripheral pulses: Peripheral pulses 2+ throughout GI Inspection: Yes normal to inspection Palpation (GI): Soft to palpation, nontender, no guarding, not rigid and No hepatosplenomegaly present Percussion: Yes normal to percussion Auscultation: normal bowel sounds Rectal Exam - Female: deferred General: Yes bladder normal to palpation External Female Exam: No lesion Speculum Exam - Vagina: normal appearance of the vagina, normal palpation, normal vaginal discharge and not erythematous Speculum Exam - Cervix: normal appearance of the cervix and normal palpation Bimanual exam- vagina & uterus: normal bimanual exam, normal palpation, uterine size normal, bladder normal to palpation, consistency normal and normal palpation Bimanual Exam- Adnexa, other: normal adnexae, no masses and no tenderness Assessment & Plan Assessment & Plan (1) Well woman exam: Comment: History of ZULEMA 2 in 2012 Last Co testing negative in 05/13 Code(s): Z01.419 - Encounter for gynecological examination (general) (routine) without abnormal findings Category: Medical Plan: Cotesting not indicated this year. Counseled the patient about the recommended dietary allowance of 1000 mg of Calcium & 600 IU of vitamin D. The patient was instructed to perform monthly self-breast exams and to schedule an annual exam in a year; All questions answered and the patient verbalized understanding. Instructed the patient to schedule annual exam in a year (2) Screening for STD (sexually transmitted disease): Code(s): Z11.3 - Encounter for screening for infections with a predominantly sexual mode of transmission Category: Medical Plan: STD screening tests done includes: BV panel for trichomonas, GC/CT will send patient for serology std screening for HIV, RPR, Hep b s Ag, HepC Ab. Instructions given the patient to schedule a follow-up appointment for repeat serology screen in 6 months for possible false negatives. Orders: Orders HIV Ab/Ag Today Z20.2 - Contact with and (suspected) exposure to infections with a predominantly sexual mode of transmission Syphilis Screen Today Z20.2 - Contact with and (suspected) exposure to infections with a predominantly sexual mode of transmission Hepatitis B Surface Antigen Today Z20.2 - Contact with and (suspected) exposure to infections with a predominantly sexual mode of transmission Hepatitis C Antibody Today Z20.2 - Contact with and (suspected) exposure to infections with a predominantly sexual mode of transmission Coding Level of Care Code Est Pt Prev Care 18-39y([id number]) Diagnoses Well woman exam Z01.419 Screening for STD (sexually transmitted disease) Z11.3
[2025-05-19 09:28] VITALS: BP 102/64; BMI 19.4
--- OUTSIDE RECORDS SUMMARY | 2025-05-19 10:14 | XMS_ITS | Clinical Summary ---
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
== END 2025-05-19 10:02 | disposition home or self-care (01) ==
LOC: HO.HWS 09:07
PROVIDERS: PCP Internal Medicine; Visit Provider Obstetrics & Gynecology
DX: Z01.419 Encounter for gynecological examination (general) (routine) without abnormal findings (principal); Z11.3 Encounter for screening for infections with a predominantly sexual mode of transmission
CPT/HCPCS: 99395; 99459

== ENCOUNTER 2025-05-19 09:07 | Outpatient (REF) | payer OTHER, SELFPAY ==
[2025-05-19 11:35] LABS: HBsAGNum1 0.32 S/CO (0.00-0.99); HIV Num 1 0.05 S/CO (0.00-0.99); Hepatitis B Surface Antigen Negative (Negative); Syphilis Screen Nonreactive (Nonreactive); ~HepC Num1 0.06 S/CO (0.00-0.79); ~Hepatitis C Antibody Nonreactive (Nonreactive)
== END 2025-05-19 09:08 | disposition home or self-care (01) ==
LOC: HO.LAB 09:07
PROVIDERS: PCP Internal Medicine; Visit Provider Obstetrics & Gynecology
DX: Z13.89 Encounter for screening for other disorder (principal)
CPT/HCPCS: 36415; 86780; 86803; 87340; 87389; 99395

== ENCOUNTER 2025-05-19 10:19 | Outpatient (REF) | payer OTHER, SELFPAY ==
[2025-05-20 01:45] LABS: Bacterial Vaginosis PCR POSITIVE (Negative); Candida Group PCR NOT DETECTED (Not Detect); Candida glab krusei PCR NOT DETECTED (Not Detect); Trichomonas vaginalis PCR NOT DETECTED (Not Detect)
[2025-05-20 02:16] LABS: CT PCR NOT DETECTED (Not Detect.); NG PCR NOT DETECTED (Not Detect.)
== END 2025-05-19 10:20 | disposition home or self-care (01) ==
LOC: HO.LNP 10:19
PROVIDERS: Visit Provider Obstetrics & Gynecology
DX: Z20.2 Contact with and (suspected) exposure to infections with a predominantly sexual mode of transmission (principal); N76.0 Acute vaginitis; Z11.59 Encounter for screening for other viral diseases; Z11.4 Encounter for screening for human immunodeficiency virus [HIV]
CPT/HCPCS: 36415; 81515; 86780; 86803; 87340; 87389; 87491; 87591; 99395

== ENCOUNTER 2025-05-23 11:49 | Outpatient (AMB) | payer OTHER, SELFPAY ==
--- NOTE | 2025-05-23 11:54 | A.OFFVIS_ITS ---
Vital Signs 05/23/25 11:59 Height 5 ft 4 in Weight 113 lb BMI 19.4 BP 96/54 L Blood Pressure Location Rt brachial Position Sitting Pulse 88 Pulse Source Pulse Oximeter Pulse Oximetry (%) 100 Oxygen Delivery Method Room Air Intake Visit Reasons: s/p double Intake Note: Est pt for mgmt of GERD. CC; Pt denies any new GI concerns or sx at this time. Confirms she is taking PPI PRN w/o complications. 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 Staying upright for minimum 3 hours after meals discussed with patient. Epigastric pain, history of H pylori. Patient will go for upper endoscopy. Patient will be sent for colonoscopy. Family history of CRC. Postprandial diarrhea. Patient will be sent for colonoscopy. What to expect before, during and after procedure discussed with patient. Stressed the importance of good bowel prep day before procedure. I will see patient after the procedure, sooner on as needed basis. Patient is agreeable to this plan and verbalizes understanding of instructions. She was given the opportunity to ask questions and all questions answered. ? Thank you for allowing me to participate in her care Refilled bisacodyl (Dulcolax (bisacodyl)) take 4 tabs at noon the day before your colonoscopy 20 mg (4 x 5 mg) PO ONCE 4 tabs 0RF 1 day Z12.11 polyethylene glycol 3350 (Miralax) As directed by gastroenterology department at [facility] 238 grams PO ONCE 238 grams 0RF Z12.11 UPPER ENDOSCOPY AND COLONOSCOPY Findings: Larynx: Normal Esophagus: GE junction at 40 cms. No esophagitis or Chance's. Stomach: A few 5-6 mm benign appearing polyps in the gastric body - polyps were removed with a cold snare and a cold biopsy. A 4-5 mm linear erosion in the pre-pyloric area - biopsied Moderate gastric erythema - biopsies were obtained from the antrum to check for Helicobacter pylori. Grade 2 flap valve on retroflexed examination of the cardia. Duodenum: Normal bulb and descending duodenum Biopsies were obtained from descending duodenum to check for celiac sprue Intervention: Biopsies as noted above COLONOSCOPY PROCEDURE NOTE Instrument: Olympus PCF H 190 L variable stiffness pediatric colonoscope Monitoring: Vital signs and clinical assessment, intermittent blood pressure monitoring, continuous EKG monitoring, Pulse oximetry and Carbon Dioxide monitoring were done throughout the procedure. Please see anesthesia flowsheet. Colon withdrawl time was 10 minutes. Procedure: The patient was placed in the left lateral decubitis position and pre-procedure medications were administered. After a digital rectal examination of the ano-rectum, the video colonoscope was inserted into the rectum and advanced through the colon to the cecum. The colonoscope was slowly withdrawn in a retrograde panoramic fashion and the colon mucosa was carefully examined including a retroflexed view of the rectum. Findings and interventions are described below. Procedure Difficulty: without difficulty Findings: Terminal Ileum: Not evaluated Cecum: Normal Ascending Colon: Normal Transverse Colon: Normal Descending Colon: Normal Sigmoid Colon: Moderate diverticulosis Rectum: Normal Ano-rectum: Small internal hemorrhoids Colon preparation: Excellent, after some irrigation. [place] Bowel Preparation Scale Right colon; 3 Transverse colon: 3 Left colon; 3 (0 = Unprepared colon segment with mucosa not seen due to solid stool that cannot be cleared. 1 = Portion of mucosa of the colon segment seen, but other areas of the colon segment not well seen due to staining, residual stool and/or opaque liquid. 2 = Minor amount of residual staining, small fragments of stool and/or opaque liquid, but mucosa of colon segment seen well. 3 = Entire mucosa of colon segment seen well with no residual staining, small fragments of stool or opaque liquid) Impression and Post Procedure Diagnosis: Endoscopy Findings: ESOPHAGUS: Normal STOMACH: Gastritis, benign appearing polyps in the gastric body, gastric erosion DUODENUM: Normal - biopsied to check for celiac sprue Colonoscopy Findings: No polyps were detected Random biopsies were obtained from the left colon to check for microscopic colitis Moderate diverticulosis seen in the sigmoid colon Small hemorrhoids on retroflexed exam. Plan: Repeat Colonoscopy in 5 years (due to family hx of colon cancer). A summary of above findings and relevant handouts were given to the patient. PATHOLOGY Diagnosis A. Small bowel, biopsy: Small intestinal mucosa within normal limits. B. Stomach, antrum, biopsy: Antral-type mucosa with mild chronic inactive inflammation; no Helicobacter organisms seen. C. Stomach, antral erosion, biopsy: Antral-type mucosa with mild chronic inactive inflammation and regenerative changes; no Helicobacter organisms seen. D. Stomach, polypectomies: Fundic gland polyps with background mild chronic inactive inflammation; no Helicobacter organisms seen. E. Colon, left, biopsy: Colonic mucosa within normal limits. Comment: Diagnostic morphologic features of celiac disease or microscopic colitis are not seen TODAY'S VISIT Patient is here today for follow-up and to discuss upper endoscopy in colonoscopy results. Patient is accompanied by her friend. Patient denies any ill effects from the prep, anesthesia procedure itself. Patient denies any dyspepsia, dysphagia or odynophagia. She still is taking omeprazole. Patient reports that she feels like stress has a lot to do when she stops eating and is having epigastric pain because of that. Patient otherwise is feeling well. Upper endoscopy showed mom chronic mild inactive inflammation. Patient reports that she is taking omeprazole and states that it is working. Patient had normal colonoscopy, however due to family history of CRC patient will be repeating colonoscopy in 5 years. Patient denies melena, hematochezia, unintentional weight loss or ribbon like stools. Patient denies any GI concerning symptoms today or in the past couple months. [facility] Medical History Screening for STD (sexually transmitted disease) Low back pain Potential exposure to STD Ganglion cyst of tendon sheath of right hand Allergic rhinitis Cholelithiases Micturition frequency Vaginal itching RUQ abdominal pain Family history of colon cancer Cholelithiasis Epigastric abdominal pain Abnormal uterine bleeding (AUB) Dysfunctional uterine bleeding Well woman exam ZULEMA II (cervical intraepithelial neoplasia II) Acute vaginitis Toe fracture, left Iron deficiency anemia Ulnar neuropathy Left renal stone Vitamin B12 deficiency Dysplasia of cervix, low grade (ZULEMA 1) GERD (gastroesophageal reflux disease) Asthma Vitamin D deficiency Surgical History Recurrent biliary colic Hx of colonoscopy History of cholecystectomy History of esophagogastroduodenoscopy (EGD) H/O LEEP History of tubal ligation History of wisdom tooth extraction History of tonsillectomy Family History Father CVD (cardiovascular disease) Myocardial infarction Mother Hodgkin lymphoma Colon cancer Lung cancer Brother Leukemia Colon cancer Maternal Grandmother Diabetes Social History Household Members: Family and Children Housing: Apartment Alcohol intake: current Alcohol intake frequency: holidays/special occasions only Comment: once a week 2 cups once a month 1-2 cups of wine (02/2025) Patient Tobacco Use Status: Never used Tobacco e-Cigarette/Vaping Use: Never Used Second Hand Smoke Exposure: No Substance Use Type: Marijuana service: No Current occupational status: disabled Gender identity: Female Cognitive needs: No Hearing needs: No Vision needs: Yes Female Reproductive History Menstrual Age of Menarche: 13 Review of Systems Const Denies weight gain and Denies weight loss ENT Reports no additional complaints, Denies dysphagia and Denies odynophagia Card Reports no additional complaints Resp Reports no additional complaints GI Reports abdominal pain (Epigastric, occasional), Denies belching, Denies melena, Reports bloating, Denies change in bowel habits, Denies dysphagia, Denies excessive flatus, Denies dyspepsia, Denies heartburn, Denies diarrhea, Denies loose stools, Denies nausea, Denies odynophagia and Denies vomiting Reports no additional complaints Musc Reports no additional complaints Neuro Reports no additional complaints Psych Reports no additional complaints Endo Reports no additional complaints Physical Exam Vital Signs: Last Vital Signs Pulse 88 05/23/25 11:59 BP 96/54 L 05/23/25 11:59 Pulse Ox 100 05/23/25 11:59 Oxygen Delivery Method Room Air 05/23/25 11:59 BMI result Body Mass Index 19.4 Const General: healthy appearing and no acute distress Orientation/consciousness: patient oriented x3 Resp Effort & Inspection: normal respiratory effort, able to speak in complete sentences, no tracheal deviation and symmetric chest movement Auscultation: clear to auscultation bilaterally Cardio Rate: regular rate GI Inspection: Yes normal to inspection and No distended Palpation (GI): Soft to palpation, not firm, nontender and No hepatosplenomegaly present Auscultation: normal bowel sounds General: Yes no CVA tenderness Back/Spine/Pelvis Back: no CVA tenderness Skin General skin exam: elasticity normal, turgor normal and dry skin Neuro General: patient oriented x3 Psych Appearance: grossly normal Mental Status: mental status grossly normal Assessment & Plan Assessment & Plan (1) GERD (gastroesophageal reflux disease): Code(s): K21.9 - Gastro-esophageal reflux disease without esophagitis Category: Medical Qualifiers: Esophagitis presence: without esophagitis Qualified Code(s): K21.9 - Gastro-esophageal reflux disease without esophagitis (2) History of Helicobacter pylori infection: Code(s): Z86.19 - Personal history of other infectious and parasitic diseases Category: Medical (3) Status post laparoscopic cholecystectomy: Code(s): Z90.49 - Acquired absence of other specified parts of digestive tract Category: Surgical (4) Bile salt-induced diarrhea: Code(s): K90.89 - Other intestinal malabsorption Category: Medical (5) Postprandial abdominal bloating: Code(s): R14.0 - Abdominal distension (gaseous) Plan Patient will continue taking omeprazole daily. Avoid dietary triggers and late night snacking. Staying upright for minimum 3 hours after meals discussed with patient. Increase fluid intake and activity to promote better bowel motility. High calorie diet discussed with patient to help her gain weight. List of food and recipes for how to make her own protein shakes given to patient. Patient will return in the office in 6 months. She will call us if she will have any GI concerning symptoms. She is agreeable to this plan and verbalizes understanding of instructions. She was given the opportunity to ask questions and all questions answered. Thank you for allowing me to participate in her care Medications: New omeprazole 20 mg PO DAILY 90 caps 3RF Coding Level of Care Code Est Pt Level 4 (49642) Complex EM visit Add On G2211 Diagnoses Gastroesophageal reflux disease without esophagitis K21.9 Esophagitis presence: without esophagitis History of Helicobacter pylori infection Z86.19 Status post laparoscopic cholecystectomy Z90.49 Bile salt-induced diarrhea K90.89 Postprandial abdominal bloating R14.0 Time Spent (min) 35 Comment 25 minutes spent with patient and additional 10 minutes spent reviewing her records
[2025-05-23 11:59] VITALS: BP 96/54; PULSE 88; O2SAT 100; BMI 19.4
--- OUTSIDE RECORDS SUMMARY | 2025-05-23 15:02 | XMS_ITS | Clinical Summary ---
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 STANDARD [facility] HALF-WAY OPTIONS (HMO D-SNP)
== END 2025-05-23 12:17 | disposition home or self-care (01) ==
LOC: HO.HGI 11:50
PROVIDERS: PCP Internal Medicine; Visit Provider Nurse Practitioner Family
DX: K21.9 Gastro-esophageal reflux disease without esophagitis (principal); Z86.19 Personal history of other infectious and parasitic diseases; Z90.49 Acquired absence of other specified parts of digestive tract; K90.89 Other intestinal malabsorption; R14.0 Abdominal distension (gaseous)
CPT/HCPCS: 99214; G2211

== ENCOUNTER → 2025-05-23 11:49 | Outpatient (BNVA) | payer OTHER, SELFPAY | PROVIDERS: PCP Internal Medicine; Visit Provider Nurse Practitioner Family | DX: K21.9 Gastro-esophageal reflux disease without esophagitis (principal); K90.89 Other intestinal malabsorption; R14.0 Abdominal distension (gaseous); Z90.49 Acquired absence of other specified parts of digestive tract; Z86.19 Personal history of other infectious and parasitic diseases | CPT/HCPCS: 99212 ==

== ENCOUNTER 2025-06-01 10:38 | Outpatient (AMB) | payer OTHER, SELFPAY ==
--- NOTE | 2025-06-01 10:57 | A.OFFVIS_ITS ---
VS Expanded 06/01/25 10:58 Height 5 ft 4 in Weight 112 lb 6.972 oz BMI 19.3 Intake Visit Reasons: Monitor Weight Allergies pomegranate (POMEGRANATE) Allergy (Mild, Verified 05/23/25 11:54) RASH Seasonal Allergies Allergy (Unknown, Verified 05/23/25 11:54) Unknown Nutrition Presentation Details: Pt presents for MNT f/u abnormal weight loss. Pt has hx of GERD, cholecystectomy in November 2023 Pt is at a healthier weight, today at 112 lb. Patient reports she had a viral infection last week with vomiting and diarrhea. Patient reports feeling better now. Patient reports often having 1-2 meals a day due to lack of appetite in the morning. May choose foods away from home (fast food meals, burger/fries/soda or family restaurants meals (rice/beans/chicken or pork), beverages of choice: soda ). When at home may have pasta/ground beef or rice/beans/chicken or cereal with whole milk or sandwich with ham and cheese , drinks juice or soda with the meals Pt reports taking supplements (iron, vit c, folic acid and a mvi - on and off) BS Monitoring Most Recent Diabetes Results: Cholesterol, (<200) 168 mg/dL 03/23/25 HDL Cholesterol, (>40) 60 mg/dL 03/23/25 Triglycerides, (<150) 76 mg/dL 03/23/25 Creatinine, (0.5-1.4) 0.71 mg/dL 03/23/25 BUN, (9-16) 13 mg/dL 03/23/25 Sodium, (135-145) 138 mmol/L 03/23/25 Potassium, (3.3-5.1) 4.3 mmol/L 03/23/25 Chloride, (96-108) 107 mmol/L 03/23/25 Carbon Dioxide, (22-29) 24 mmol/L 03/23/25 Calcium, (8.4-10.2) 8.8 mg/dL 03/23/25 AST, (5-31) 17 U/L 03/23/25 ALT, (0-31) 16 U/L 03/23/25 Total Protein, (6.5-8.0) 6.8 g/dL 03/23/25 Albumin, (3.5-5.0) 4.3 g/dL 03/23/25 PFS Medical History Screening for STD (sexually transmitted disease) Low back pain Potential exposure to STD Ganglion cyst of tendon sheath of right hand Allergic rhinitis Cholelithiases Micturition frequency Vaginal itching RUQ abdominal pain Family history of colon cancer Cholelithiasis Epigastric abdominal pain Abnormal uterine bleeding (AUB) Dysfunctional uterine bleeding Well woman exam ZULEMA II (cervical intraepithelial neoplasia II) Acute vaginitis Toe fracture, left Iron deficiency anemia Ulnar neuropathy Left renal stone Vitamin B12 deficiency Dysplasia of cervix, low grade (ZULEMA 1) GERD (gastroesophageal reflux disease) Asthma Vitamin D deficiency Surgical History Recurrent biliary colic Hx of colonoscopy History of cholecystectomy History of esophagogastroduodenoscopy (EGD) H/O LEEP History of tubal ligation History of wisdom tooth extraction History of tonsillectomy Family History Father CVD (cardiovascular disease) Myocardial infarction Mother Hodgkin lymphoma Colon cancer Lung cancer Brother Leukemia Colon cancer Maternal Grandmother Diabetes Social History Household Members: Family and Children Housing: Apartment Alcohol intake: current Alcohol intake frequency: holidays/special occasions only Comment: once a week 2 cups once a month 1-2 cups of wine (02/2025) Patient Tobacco Use Status: Never used Tobacco e-Cigarette/Vaping Use: Never Used Second Hand Smoke Exposure: No Substance Use Type: Marijuana service: No Current occupational status: disabled Gender identity: Female Cognitive needs: No Hearing needs: No Vision needs: Yes Female Reproductive History Menstrual Age of Menarche: 13 Assessment & Plan Assessment & Plan (1) Abnormal weight loss: Code(s): R63.4 - Abnormal weight loss Category: Medical Plan: Recommend : Having nutrient dense beverages, working on meal routine, not skipping meals, physical activity wt 49 kg, (49.9 on 08/2023), 54.5 (05/13), 54 kg(10/12)- maintaining, 51 kg (06/14) Est kcal needs : 6174-6194 seth per day + 500 to continue promoting weight gain , including nutrient dense foods (40% carb, 30% protein/fat) Est fluid needs as per 35 ml/d: 1700 Est prot per day as per 1.2 g/kg bw: 65 Recommend fiber intake : 8-10 g per day and gradually increase to 25-28 g per day for women and 35-38 g for men or as tolerated Educated patient on: ( R = reviewed V = verbalizes understanding N/R = needs review N/A = not applicable * Food sources of protein and its role in anemia, muscle mass, GI function : R * Hydration with nutrient dense beverages : milk, juice, water with juice, coconut water , no non diet beverages due to lack of nutrition: R * Healthy plate method concept: R,V * Nutrient dense beverages: R, V * Nutrient dense snacks including fruits/dairy/veg:R * Vitamins/mineral in foods ;R Patient Instructions: Choose fruit juices as beverages (nectars, apple juice , coconut water) reducing on empty calorie beverages/carbonated beverages Engage in physical activity , walking 30 minutes 3 times a week Coding Level of Care Code Nutr Indiv Subseq ([id number]) Diagnoses Abnormal weight loss R63.4 Time Spent (min) 30
[2025-06-01 10:58] VITALS: BMI 19.3
--- OUTSIDE RECORDS SUMMARY | 2025-06-01 12:46 | XMS_ITS | Clinical Summary ---
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
== END 2025-06-01 11:17 | disposition home or self-care (01) ==
LOC: HO.ENCR 10:40
PROVIDERS: PCP Internal Medicine; Visit Provider Dietitian, Registered
DX: R63.4 Abnormal weight loss (principal)

== ENCOUNTER → 2025-06-01 10:38 | Outpatient (BNVA) | payer OTHER, SELFPAY | PROVIDERS: PCP Internal Medicine; Visit Provider Dietitian, Registered | DX: R63.4 Abnormal weight loss (principal) | CPT/HCPCS: 97803 ==